=== PATIENT | female | born 1955 | race African-American/Black ===

== ENCOUNTER 2019-01-19 18:58 | Inpatient (IN) | payer MEDICAID ==
[~2019-01-19] VITALS: Ht 180.3 cm; Wt 117.0 kg
[~2019-01-19 18:58] MED LIST: ALBU2.5V8 INH; ALPR1TAB6 PO; AZIT250T6 PO; FLUT1DIS5 INH; FURO20TA3 PO; IPRA4AER INH; LORA10TA3 PO; MONT10TA49 PO; OMEP40CA45 PO; OXYC1TAB7 PO; OXYC80TA16 PO; PANT20TA2 PO; PHEN100C PO
--- NOTE | 2019-01-19 19:21 | PHYS DOC ---
Past Medical History Past Medical History: COPD, Seizure Past Surgical History: No Surgical History Alcohol Use: None Drug Use: None Adult General Chief Complaint Chief Complaint: CHEST PAIN HPI HPI 63 yo female presents to the ER with complaints of SOB. Patient O2 saturations 84% on RA. Patient states she fell last week on the ground with injury to her right shoulder and chest. She states today she woke with SOB, cough, chills. States the SOB was not getting better so she presented to the ER for further evaluation. Patient states movements make her pain/SOB worse. She denies nausea, vomiting, abdominal pain headache or visual changes. Review of Systems Review of Systems Constitutional: + chills Eyes: Denies change in visual acuity, redness, or eye pain [] HENT: Denies nasal congestion or sore throat [] Respiratory: + cough, SOB Cardiovascular: No additional information not addressed in HPI [] GI: Denies abdominal pain, nausea, vomiting, bloody stools or diarrhea [] : Denies dysuria or hematuria [] Musculoskeletal: right side chest pain Integument: Denies rash or skin lesions [] Neurologic: Denies headache, focal weakness or sensory changes [] All other systems were reviewed and found to be within normal limits, except as documented in this note. Current Medications Current Medications Current Medications Medications (Trade) Dose Ordered Sig/Jennie Start Time Stop Time Status Last Admin Dose Admin Albuterol/ Ipratropium (Duoneb) 3 ml 1X ONCE 01/19/19 19:30 01/19/19 19:31 DC 01/19/19 19:30 3 ML Info (CONTRAST GIVEN -- Rx MONITORING) 1 each PRN DAILY PRN 01/19/19 21:00 01/21/19 20:59 DC Iohexol (Omnipaque 350 Mg/ml) 100 ml 1X ONCE 01/19/19 21:30 01/19/19 21:31 DC 01/19/19 21:30 100 ML Allergies Allergies Allergies Coded Allergies Type Severity Reaction Last Updated Verified No Known Drug Allergies 09/27/14 No Physical Exam Physical Exam Constitutional: Well developed, well nourished, mild resp distress, non-toxic appearance. [] HENT: Normocephalic, atraumatic, bilateral external ears normal, oropharynx moist, no oral exudates, nose normal. [] Eyes: PERRLA, EOMI, conjunctiva normal, no discharge. [] Neck: Normal range of motion, no tenderness, supple, no stridor. [] Cardiovascular: tachycardiaa Lungs & Thorax: decreased BS bilaterally Abdomen: Bowel sounds normal, soft, no tenderness, no masses, no pulsatile masses. [] Skin: Warm, dry, no erythema, no rash. [] Back: No tenderness, no CVA tenderness. [] Extremities: No tenderness, no edema. [] Neurologic: Alert and oriented X 3, no focal deficits noted. [] Psychologic: Affect normal, judgement normal, mood normal. [] Current Patient Data Vital Signs Vital Signs Date Time Temp Pulse Resp B/P (MAP) Pulse Ox O2 Delivery O2 Flow Rate FiO2 01/20/19 00:12 84 124/78 (93) 92 01/19/19 19:31 Nasal Cannula 3.0 01/19/19 19:10 98.4 18 98.4 Lab Values Laboratory Tests Test 01/19/19 19:30 01/19/19 21:13 White Blood Count 5.9 x10^3/uL (4.0-11.0) Red Blood Count 4.61 x10^6/uL (3.50-5.40) Hemoglobin 13.8 g/dL (12.0-15.5) Hematocrit 41.6 % (36.0-47.0) Mean Corpuscular Volume 90 fL (79-100) Mean Corpuscular Hemoglobin 30 pg (25-35) Mean Corpuscular Hemoglobin Concent 33 g/dL (31-37) Red Cell Distribution Width 15.1 % (11.5-14.5) H Platelet Count 221 x10^3/uL (140-400) Neutrophils (%) (Auto) 58 % (31-73) Lymphocytes (%) (Auto) 31 % (24-48) Monocytes (%) (Auto) 10 % (0-9) H Eosinophils (%) (Auto) 1 % (0-3) Basophils (%) (Auto) 1 % (0-3) Neutrophils # (Auto) 3.4 x10^3/uL (1.8-7.7) Lymphocytes # (Auto) 1.8 x10^3/uL (1.0-4.8) Monocytes # (Auto) 0.6 x10^3/uL (0.0-1.1) Eosinophils # (Auto) 0.1 x10^3/uL (0.0-0.7) Basophils # (Auto) 0.0 x10^3/uL (0.0-0.2) Sodium Level 140 mmol/L (136-145) Potassium Level 4.2 mmol/L (3.5-5.1) Chloride Level 103 mmol/L (98-107) Carbon Dioxide Level 30 mmol/L (21-32) Anion Gap 7 (6-14) Blood Urea Nitrogen 11 mg/dL (7-20) Creatinine 0.9 mg/dL (0.6-1.0) Estimated GFR (Cockcroft-Gault) 76.5 BUN/Creatinine Ratio 12 (6-20) Glucose Level 94 mg/dL (70-99) Lactic Acid Level 1.2 mmol/L (0.4-2.0) Calcium Level 9.4 mg/dL (8.5-10.1) Total Bilirubin 0.4 mg/dL (0.2-1.0) Aspartate Amino Transferase (AST) 26 U/L (15-37) Alanine Aminotransferase (ALT) 27 U/L (14-59) Alkaline Phosphatase 102 U/L (46-116) Troponin I Quantitative < 0.017 ng/mL (0.000-0.055) HZ-Qmr-Q-Type Natriuretic Peptide 14 pg/mL (0-124) Total Protein 8.3 g/dL (6.4-8.2) H Albumin 3.7 g/dL (3.4-5.0) Albumin/Globulin Ratio 0.8 (1.0-1.7) L D-Dimer (Justina) 2.47 ug/mlFEU (0.00-0.50) H Laboratory Tests 01/19/19 19:30 Laboratory Tests 01/19/19 19:30 Microbiology 01/19/19 Blood Culture - Preliminary, Resulted NO GROWTH AFTER 2 DAYS EKG EKG [] Radiology/Procedures Radiology/Procedures [facility] [address] [place] [address] IMAGING REPORT Signed PATIENT: JEANNIE TAPIA ACCOUNT: [id number] : 1955 LOCATION: ER AGE: 63 SEX: F EXAM STATUS: REG ER ORD. PHYSICIAN: REJI CLAUDIO MD REASON: hypoxia, room air sat 84% PROCEDURE: CT ANGIOGRAPHY CHEST Study: CT CHEST WITH CONTRAST - PULMONARY ANGIOGRAM History: Hypoxia. Comparison: 12/15/2017 Technique: Helical CT of the chest performed after the administration of 100 cc Omnipaque 350 intravenous contrast and timed for angiographic evaluation of the pulmonary arteries per PE protocol. Coronal and sagittal 3D MIP reformations were obtained. One or more of the following individualized dose reduction techniques were utilized for this examination: 1. Automated exposure control 2. Adjustment of the mA and/or kV according to patient size 3. Use of iterative reconstruction technique. Findings: No pulmonary embolism is identified. Unremarkable aorta and visualized great vessels. No pericardial effusion. Scattered mildly prominent mediastinal and hilar lymph nodes. [facility] right hilar lymph node on image 75 series 3 measuring 1.2 cm. Emphysematous changes of the lungs. Flattened opacities at both lung bases extending to the pleura. 3 mm right middle lobe pulmonary nodule on image 85. Millimetric pleural-based nodule in the right lower lobe, image 88. Possible right thyroid lobe nodule on image 5 series 3 measured at 8 mm and not meeting size criteria for dedicated follow-up. Multifocal osseous degenerative changes. No acute abnormality seen at the upper abdomen. IMPRESSION: 1. No acute pulmonary embolism is identified. 2. At the right more so than left lung bases, mostly linear opacities are identified that are suggestive of atelectasis but could potentially represent an infectious process in the appropriate clinic setting. 3. A few millimetric pulmonary nodules are noted. These do not meet size criteria for dedicated follow-up however given the appearance of the lungs and presumed risk factors for lung malignancy, optional CT follow-up in 12 months could be considered. 4. Scattered mildly prominent mediastinal and hilar lymph nodes are indeterminate. Attention on follow-up. Electronically signed by: GRZEGORZ POWELL MD (01/19/2019 11:11 PM) [facility] DICTATED and SIGNED BY: GRZEGORZ POWELL MD DATE: 01/19/19 2311 [] Course & Med Decision Making Course & Med Decision Making Pertinent Labs and Imaging studies reviewed. (See chart for details) []63 yo female presents to the ER with complaints of SOB. Patient O2 saturations 84% on RA. Patient states she fell last week on the ground with injury to her right shoulder and chest. She states today she woke with SOB, cough, chills. States the SOB was not getting better so she presented to the ER for further evaluation. Patient states movements make her pain/SOB worse. She denies nausea, vomiting, abdominal pain headache or visual changes. Labs/Imaging reviewed Patient provided with duoneb, resp treatment, IVF in the ER Trop negative, BNP 14, ddimer 2.47 CTA performed without acute PE Evidence of PNA appreciated, cultures obtained. Recommend admit with further evaluation and observation within the hospital. Dragon Disclaimer Dragon Disclaimer This electronic medical record was generated, in whole or in part, using a voice recognition dictation system. Departure Departure Impression: Primary Impression: PNA (pneumonia) Additional Impressions: Hypoxia Insufficiency, respiratory, acute Disposition: ADMITTED INPATIENT Admitting Physician: EDWINA Condition: IMPROVED Referrals: SALLY MUNOZ MD (PCP) Critical Care Time Critical care time was 35 minutes exclusive of procedures. Problem Qualifiers Primary Impression: PNA (pneumonia) Pneumonia type: due to unspecified organism Laterality: bilateral Lung location: lower lobe of lung Qualified Codes: J18.9 - Pneumonia, unspecified organism REJI CLAUDIO MD Jan 19, 2019 19:21
[2019-01-19] MEDS ORDERED: IPRATRPIUM/ALBUTEROL 0.5/2.5MG 3 ML NEBU. NEB ONE (19:30)
[2019-01-19 19:43] LABS: BASO % 1 % (0-3); EOS # 0.1 x10^3/uL (0.0-0.7); EOS % 1 % (0-3); HEMATOCRIT 41.6 % (36.0-47.0); HEMOGLOBIN 13.8 g/dL (12.0-15.5); LYMPH # 1.8 x10^3/uL (1.0-4.8); LYMPH % 31 % (24-48); MEAN CORPUSCULAR HEMOGLOBIN 30 pg (25-35); MEAN CORPUSCULAR HGB CONC 33 g/dL (31-37); MEAN CORPUSCULAR VOLUME 90 fL (79-100); MONO # 0.6 x10^3/uL (0.0-1.1); MONO % 10 % (0-9); NEUT # 3.4 x10^3/uL (1.8-7.7); NEUT % 58 % (31-73); PLATELET COUNT 221 x10^3/uL (140-400); RED BLOOD COUNT 4.61 x10^6/uL (3.50-5.40); RED CELL DISTRIBUTION WIDTH 15.1 % (11.5-14.5); WHITE BLOOD COUNT 5.9 x10^3/uL (4.0-11.0)
[2019-01-19 20:00] LABS: CALCIUM 9.4 mg/dL (8.5-10.1); CREATININE 0.9 mg/dL (0.6-1.0); GFR 76.5; POTASSIUM 4.2 mmol/L (3.5-5.1)
[2019-01-19 20:05] LABS: ALBUMIN 3.7 g/dL (3.4-5.0); ALBUMIN/GLOBULIN RATIO 0.8 (1.0-1.7); TOTAL BILIRUBIN 0.4 mg/dL (0.2-1.0); TOTAL PROTEIN 8.3 g/dL (6.4-8.2)
[2019-01-19] MEDS ORDERED: CONTRAST GIVEN. MC PRN (21:00)
[2019-01-19] MEDS ORDERED: IOHEXOL 350 MG/ML 100 ML VIAL. IV ONE (21:30)
--- NOTE | 2019-01-19 23:14 | RAD ---
Study: CT CHEST WITH CONTRAST - PULMONARY ANGIOGRAM History: Hypoxia. Comparison: 12/15/2017 Technique: Helical CT of the chest performed after the administration of 100 cc Omnipaque 350 intravenous contrast and timed for angiographic evaluation of the pulmonary arteries per PE protocol. Coronal and sagittal 3D MIP reformations were obtained. One or more of the following individualized dose reduction techniques were utilized for this examination: 1. Automated exposure control 2. Adjustment of the mA and/or kV according to patient size 3. Use of iterative reconstruction technique. Findings: No pulmonary embolism is identified. Unremarkable aorta and visualized great vessels. No pericardial effusion. Scattered mildly prominent mediastinal and hilar lymph nodes. Jewel Gauger right hilar lymph node on image 75 series 3 measuring 1.2 cm. Emphysematous changes of the lungs. Flattened opacities at both lung bases extending to the pleura. 3 mm right middle lobe pulmonary nodule on image 85. Millimetric pleural-based nodule in the right lower lobe, image 88. Possible right thyroid lobe nodule on image 5 series 3 measured at 8 mm and not meeting size criteria for dedicated follow-up. Multifocal osseous degenerative changes. No acute abnormality seen at the upper abdomen. IMPRESSION: 1. No acute pulmonary embolism is identified. 2. At the right more so than left lung bases, mostly linear opacities are identified that are suggestive of atelectasis but could potentially represent an infectious process in the appropriate clinic setting. 3. A few millimetric pulmonary nodules are noted. These do not meet size criteria for dedicated follow-up however given the appearance of the lungs and presumed risk factors for lung malignancy, optional CT follow-up in 12 months could be considered. 4. Scattered mildly prominent mediastinal and hilar lymph nodes are indeterminate. Attention on follow-up. Electronically signed by: GRZEGORZ POWELL MD (01/19/2019 11:11 PM) [facility] [place]
--- NOTE | 2019-01-20 00:26 | RAD ---
PORTABLE CHEST 1V History: Shortness of breath Comparison: June 13, 2017 Findings: Single view of the chest is submitted. There is no pneumothorax. Cardiac silhouette is similar. There is again more linear-appearing bibasilar airspace opacity greater on the left. No new significant dependent pleural fluid is identified. Impression: 1. There is again degree of bibasilar linear opacity which may be atelectasis greater on the left, infiltrate not excluded. Electronically signed by: Lukas Martin MD (01/20/2019 12:23 AM) [facility]
[2019-01-20] MEDS ORDERED: ONDANSETRON PF 4 MG/2 ML VIAL. IV PRN ×2 (00:45→16:45)
[2019-01-20 02:00] VITALS: BP 133/88
--- NOTE | 2019-01-20 02:00 | NUR ---
The patient, JEANNIE TAPIA, 63 y/o, F admitted by KRISHNA BURTON MD, was given written information regarding hospital policies, unit procedures and contact persons. Valuables were checked and left in the room.
[2019-01-20] MEDS ORDERED: METF500T16 PO (02:21)
[2019-01-20 07:56] VITALS: BP 110/64
[2019-01-20] MEDS: IPRATRPIUM/ALBUTEROL 0.5/2.5MG 3 ML NEBU. NEB SCH ×4 (08:23→20:23)
--- NOTE | 2019-01-20 10:14 | PDOC1 ---
History and Physical Date of Admission Date of Admission DATE: 01/20/19 TIME: 10:13 Identification/Chief Complaint Chief Complaint SEEN IN ER , 63 yo female presented to the ER with complaints of SOB. Patient O2 saturations 84% on RA. Patient states she fell last week on the ground with injury to her right shoulder and chest. She states today she woke with SOB, cough, chills. Past Medical History Past Medical History Past Medical History Past Medical History Past Medical History: COPD, Seizure Past Surgical History: No Surgical History Alcohol Use: None Drug Use: None Pulmonary: COPD CENTRAL NERVOUS SYSTEM: Seizure GI: GERD Hepatobiliary: No pertinent hx Psych: Anxiety, Depression Rheumatologic: Other Infectious disease: No pertinent hx Renal/: No pertinent hx Endocrine: No pertinent hx Past Surgical History Past Surgical History: No pertinent history Family History Family History: Hypertension Social History Smoke: Quit ALCOHOL: none Drugs: None Current Problem List Problem List Problems Medical Problems: (1) Hypoxia Status: Acute (2) Insufficiency, respiratory, acute Status: Acute (3) PNA (pneumonia) Status: Acute Current Medications Current Medications Current Medications Albuterol/ Ipratropium (Duoneb) 3 ml 1X ONCE NEB Last administered on 01/19/19at 19:30; Start 01/19/19 at 19:30; Stop 01/19/19 at 19:31; Status DC Iohexol (Omnipaque 350 Mg/ml) 100 ml 1X ONCE IV Last administered on 01/19/19at 21:30; Start 01/19/19 at 21:30; Stop 01/19/19 at 21:31; Status DC Info (CONTRAST GIVEN -- Rx MONITORING) 1 each PRN DAILY PRN MC SEE COMMENTS; Start 01/19/19 at 21:00; Stop 01/21/19 at 20:59 Ondansetron HCl (Zofran) 4 mg PRN Q8HRS PRN IV NAUSEA/VOMITING 1ST CHOICE; Start 01/20/19 at 00:45; Stop 01/21/19 at 00:44 Albuterol/ Ipratropium (Duoneb) 3 ml RTQID NEB Last administered on 01/20/19at 08:23; Start 01/20/19 at 08:00; Stop 01/21/19 at 07:59 Levofloxacin/ Dextrose 150 ml @ 100 mls/hr 1X ONCE IV Last administered on 01/20/19at 01:05; Start 01/20/19 at 01:00; Stop 01/20/19 at 02:29; Status DC Active Scripts Active Reported Metformin Hcl 500 Mg Tablet 500 Mg PO BIDWMEALS Azithromycin Tablet (Azithromycin) 250 Mg Tablet 250 Mg PO PT STATED THAT SHE HAS BEEN TAKING ABX FOR THREE DAYS, UNABLE TO STATE HOW MANY TIME PER DAY OR WHY SHE IS TAKING IT Dilantin (Phenytoin Sodium Extended) 100 Mg Capsule 1 Cap PO DAILY Combivent Respimat Inhal (Ipratropium/Albuterol Sulfate) 4 Gm Aer.w.adap 4 Gm INH Advair 500-50 Diskus (Fluticasone/Salmeterol) 1 Each Disk.w.dev 1 Each INH BID Proair Hfa (Albuterol Sulfate) 8.5 Gm Hfa.aer.ad 8.5 Gm INH PRN Protonix (Pantoprazole Sodium) 20 Mg Tablet.dr 40 Mg PO DAILY Oxycontin (Oxycodone HCl) 80 Mg Tab.er.12h 80 Mg PO BID Loratadine 10 Mg Tablet 10 Mg PO DAILY Oxycodone-Acetaminophen 5-325 (Oxycodone Hcl/Acetaminophen) 1 Each Tablet 1 Tab PO Q4HRS PRN Alprazolam 1 Mg Tablet 1 Mg PO BID Furosemide 20 Mg Tablet 20 Mg PO DAILY Montelukast Sodium Tablet (Montelukast Sodium) 10 Mg Tablet 10 Mg PO DAILY Omeprazole 40 Mg Capsule.dr 40 Mg PO DAILY Allergies Allergies: Coded Allergies: No Known Drug Allergies (Unverified , 09/27/14) ROS Review of System Review of Systems Review of Systems Constitutional: pos chills [] Eyes: Denies change in visual acuity, redness, or eye pain [] HENT: Denies nasal congestion or sore throat [] Respiratory: shortness of breath [] Cardiovascular: No additional information not addressed in HPI [] GI: Denies abdominal pain, nausea, vomiting, bloody stools or diarrhea [] : Denies dysuria or hematuria [] Musculoskeletal: Denies back pain or joint pain [] Integument: Denies rash or skin lesions [] Neurologic: Denies headache, focal weakness or sensory changes [] Endocrine: Denies polyuria or polydipsia [] 14 pt systems were reviewed and found to be within normal limits, except as documented Musculoskeletal: Yes Joint Pain, Yes Joint Stiffness Physical Exam Physical Exam Physical Exam Physical Exam Constitutional: Well developed, well nourished, no acute distress, non-toxic appearance. [] HENT: Normocephalic, atraumatic, bilateral external ears normal, oropharynx moist, no oral exudates, nose normal. [] Eyes: PERRLA, EOMI, conjunctiva normal, no discharge. [] Neck: Normal range of motion, no tenderness, supple, no stridor. [] Cardiovascular:Heart rate regular rhythm, no murmur [] Lungs & Thorax: Bilateral breath crackles [] Abdomen: Bowel sounds normal, soft, no tenderness, no masses, no pulsatile masses. [] Skin: Warm, dry, no erythema, no rash. [] Back: No tenderness, no CVA tenderness. [] Extremities: No tenderness, no cyanosis, no clubbing, ROM intact, no edema. [] Neurologic: Alert and oriented X 3, normal motor function, normal sensory function, no focal deficits noted. [] Psychologic: Affect normal, judgment normal, mood normal. [] General: Alert, Oriented X3, Cooperative HEENT: Atraumatic Breasts: Not examined Abdomen: Soft Rectal Exam: not examined Extremities: No cyanosis Neuro: Normal speech, Strength at 5/5 X4 ext, Cranial nerves 3-12 NL Psych/Mental Status: Mental status NL, Mood NL Vitals Vitals Vital Signs Date Time Temp Pulse Resp B/P (MAP) Pulse Ox O2 Delivery O2 Flow Rate FiO2 01/20/19 08:37 4.0 01/20/19 08:31 94 Nasal Cannula 01/20/19 07:56 97.6 75 20 110/64 (79) 97.6 Labs Labs Laboratory Tests Test 01/19/19 19:30 01/19/19 21:13 White Blood Count 5.9 x10^3/uL (4.0-11.0) Red Blood Count 4.61 x10^6/uL (3.50-5.40) Hemoglobin 13.8 g/dL (12.0-15.5) Hematocrit 41.6 % (36.0-47.0) Mean Corpuscular Volume 90 fL (79-100) Mean Corpuscular Hemoglobin 30 pg (25-35) Mean Corpuscular Hemoglobin Concent 33 g/dL (31-37) Red Cell Distribution Width 15.1 % (11.5-14.5) Platelet Count 221 x10^3/uL (140-400) Neutrophils (%) (Auto) 58 % (31-73) Lymphocytes (%) (Auto) 31 % (24-48) Monocytes (%) (Auto) 10 % (0-9) Eosinophils (%) (Auto) 1 % (0-3) Basophils (%) (Auto) 1 % (0-3) Neutrophils # (Auto) 3.4 x10^3/uL (1.8-7.7) Lymphocytes # (Auto) 1.8 x10^3/uL (1.0-4.8) Monocytes # (Auto) 0.6 x10^3/uL (0.0-1.1) Eosinophils # (Auto) 0.1 x10^3/uL (0.0-0.7) Basophils # (Auto) 0.0 x10^3/uL (0.0-0.2) Sodium Level 140 mmol/L (136-145) Potassium Level 4.2 mmol/L (3.5-5.1) Chloride Level 103 mmol/L (98-107) Carbon Dioxide Level 30 mmol/L (21-32) Anion Gap 7 (6-14) Blood Urea Nitrogen 11 mg/dL (7-20) Creatinine 0.9 mg/dL (0.6-1.0) Estimated GFR (Cockcroft-Gault) 76.5 BUN/Creatinine Ratio 12 (6-20) Glucose Level 94 mg/dL (70-99) Lactic Acid Level 1.2 mmol/L (0.4-2.0) Calcium Level 9.4 mg/dL (8.5-10.1) Total Bilirubin 0.4 mg/dL (0.2-1.0) Aspartate Amino Transf (AST/SGOT) 26 U/L (15-37) Alanine Aminotransferase (ALT/SGPT) 27 U/L (14-59) Alkaline Phosphatase 102 U/L (46-116) Troponin I Quantitative < 0.017 ng/mL (0.000-0.055) KZ-Rno-U-Type Natriuretic Peptide 14 pg/mL (0-124) Total Protein 8.3 g/dL (6.4-8.2) Albumin 3.7 g/dL (3.4-5.0) Albumin/Globulin Ratio 0.8 (1.0-1.7) D-Dimer (Justina) 2.47 ug/mlFEU (0.00-0.50) Laboratory Tests Test 01/19/19 19:30 01/19/19 21:13 White Blood Count 5.9 x10^3/uL (4.0-11.0) Red Blood Count 4.61 x10^6/uL (3.50-5.40) Hemoglobin 13.8 g/dL (12.0-15.5) Hematocrit 41.6 % (36.0-47.0) Mean Corpuscular Volume 90 fL (79-100) Mean Corpuscular Hemoglobin 30 pg (25-35) Mean Corpuscular Hemoglobin Concent 33 g/dL (31-37) Red Cell Distribution Width 15.1 % (11.5-14.5) Platelet Count 221 x10^3/uL (140-400) Neutrophils (%) (Auto) 58 % (31-73) Lymphocytes (%) (Auto) 31 % (24-48) Monocytes (%) (Auto) 10 % (0-9) Eosinophils (%) (Auto) 1 % (0-3) Basophils (%) (Auto) 1 % (0-3) Neutrophils # (Auto) 3.4 x10^3/uL (1.8-7.7) Lymphocytes # (Auto) 1.8 x10^3/uL (1.0-4.8) Monocytes # (Auto) 0.6 x10^3/uL (0.0-1.1) Eosinophils # (Auto) 0.1 x10^3/uL (0.0-0.7) Basophils # (Auto) 0.0 x10^3/uL (0.0-0.2) Sodium Level 140 mmol/L (136-145) Potassium Level 4.2 mmol/L (3.5-5.1) Chloride Level 103 mmol/L (98-107) Carbon Dioxide Level 30 mmol/L (21-32) Anion Gap 7 (6-14) Blood Urea Nitrogen 11 mg/dL (7-20) Creatinine 0.9 mg/dL (0.6-1.0) Estimated GFR (Cockcroft-Gault) 76.5 BUN/Creatinine Ratio 12 (6-20) Glucose Level 94 mg/dL (70-99) Lactic Acid Level 1.2 mmol/L (0.4-2.0) Calcium Level 9.4 mg/dL (8.5-10.1) Total Bilirubin 0.4 mg/dL (0.2-1.0) Aspartate Amino Transf (AST/SGOT) 26 U/L (15-37) Alanine Aminotransferase (ALT/SGPT) 27 U/L (14-59) Alkaline Phosphatase 102 U/L (46-116) Troponin I Quantitative < 0.017 ng/mL (0.000-0.055) QU-Ozk-T-Type Natriuretic Peptide 14 pg/mL (0-124) Total Protein 8.3 g/dL (6.4-8.2) Albumin 3.7 g/dL (3.4-5.0) Albumin/Globulin Ratio 0.8 (1.0-1.7) D-Dimer (Justina) 2.47 ug/mlFEU (0.00-0.50) Images Images EXAM: 3 Views Right Shoulder DATE: 01/20/2019 2:47 PM INDICATION: Right shoulder pain, progressing since fall COMPARISON: No Prior FINDINGS: There is no evidence for acute fracture or dislocation. AC joint is congruent. Humeral head is not high riding. IMPRESSION: 1. No acute fracture or dislocation. Electronically signed by: Kale Vega MD (01/20/2019 3:59 PM) [id number] DICTATED and SIGNED BY: KALE VEGA MD DATE: 01/20/19 1556 EXAM: AP and lateral views right knee DATE: 01/20/2019 2:47 PM INDICATION: Pain, swelling, right knee pain COMPARISON: No Prior FINDINGS/ IMPRESSION: 1. No evidence of acute fracture or dislocation. 2. No joint effusion. 3. Joint space preserved although small medial and lateral tibial plateau osteophytes are seen. Electronically signed by: Kale Vega MD (01/20/2019 4:08 PM) [id number] DICTATED and SIGNED BY: KALE VEGA MD DATE: 01/20/19 1601 Study: CT CHEST WITH CONTRAST - PULMONARY ANGIOGRAM History: Hypoxia. Comparison: 12/15/2017 Technique: Helical CT of the chest performed after the administration of 100 cc Omnipaque 350 intravenous contrast and timed for angiographic evaluation of the pulmonary arteries per PE protocol. Coronal and sagittal 3D MIP reformations were obtained. One or more of the following individualized dose reduction techniques were utilized for this examination: 1. Automated exposure control 2. Adjustment of the mA and/or kV according to patient size 3. Use of iterative reconstruction technique. Findings: No pulmonary embolism is identified. Unremarkable aorta and visualized great vessels. No pericardial effusion. Scattered mildly prominent mediastinal and hilar lymph nodes. Obstetrician And Gynaecologist right hilar lymph node on image 75 series 3 measuring 1.2 cm. Emphysematous changes of the lungs. Flattened opacities at both lung bases extending to the pleura. 3 mm right middle lobe pulmonary nodule on image 85. Millimetric pleural-based nodule in the right lower lobe, image 88. Possible right thyroid lobe nodule on image 5 series 3 measured at 8 mm and not meeting size criteria for dedicated follow-up. Multifocal osseous degenerative changes. No acute abnormality seen at the upper abdomen. IMPRESSION: 1. No acute pulmonary embolism is identified. 2. At the right more so than left lung bases, mostly linear opacities are identified that are suggestive of atelectasis but could potentially represent an infectious process in the appropriate clinic setting. 3. A few millimetric pulmonary nodules are noted. These do not meet size criteria for dedicated follow-up however given the appearance of the lungs and presumed risk factors for lung malignancy, optional CT follow-up in 12 months could be considered. 4. Scattered mildly prominent mediastinal and hilar lymph nodes are indeterminate. Attention on follow-up. Electronically signed by: GRZEGORZ POWELL MD (01/19/2019 11:11 PM) [facility] [place] DICTATED and SIGNED BY: GRZEGORZ POWELL MD DATE: 01/19/19 2311 VTE Prophylaxis Ordered VTE Prophylaxis Devices: No VTE Pharmacological Prophylaxi: Yes Assessment/Plan Assessment/Plan IMPRESSION: 1. Acute on chronic hypoxic respiratory failure secondary to acute exacerbation WITH RESP FAILURE, EXAC of chronic obstructive pulmonary disease and likely viral basal pneumonia. 2. No acute pulmonary embolism is identified.ON CTA 3. At the right more so than left lung bases, mostly linear opacities are identified that are suggestive of atelectasis but could potentially represent an infectious process in the appropriate clinic setting. 4. few millimetric pulmonary nodules are noted. These do not meet size criteria for dedicated follow-up however given the appearance of the lungs and presumed risk factors for lung malignancy, optional CT follow-up in 12 months could be considered. 5. MORBID OBESITY 6. Moderate pulmonary HTN 7. RIGHT SHOULDER PAIN ON X-RAY There is no evidence for acute fracture or dislocation. AC joint is congruent. Humeral head is not high riding. 8. ATYPICAL CHEST PAIN PLAN ADMIT EMPERIC IV ANTIBIOTICS PULM CONSULT IV STEROID TAPER DVT PROPHYLAXIS PAIN CONTROL 77 MIN PT EXAM, CHART REVIEW, > 50% OF TIME SPENT WITH EXAM, CHART REVIEW, PT CARE COORDINATION BERRY JOSE MD Jan 20, 2019 10:14
[2019-01-20 11:57] VITALS: BP 128/74
--- NOTE | 2019-01-20 12:58 | PDOC2 ---
CARDIAC CONSULT DATE OF CONSULT Date of Consult DATE: 01/20/19 TIME: 12:23 REASON FOR CONSULT Reason for Consult: Chest pain REFERRING PHYSICIAN Referring Physician: Fullbright SOURCE Source: Chart review, Patient HISTORY OF PRESENT ILLNESS HISTORY OF PRESENT ILLNESS This is a pleasant 63 yo female admitted for complains of SOA, chest pain and recent fall. Reports that last week she slipped and fell back and brace her self with her left arm. Since then she started having some discomfort to her shoulder and right knee. Her LLE seems to be shorter than her RLE and uses a cane but no obvious effusion and able to do ROM. Since then she started having sharp right chest pain which is worse with coughing and radiates to her right back and reproducible with palpation and also has pain to her right shoulder with ROM. She has been coughing more with productive yellow sputum. Also has chills but no recorded fever. She has possible exposure to RSV from her grandchildren. Also with her cough she has been nauseated with occasional palpitations. More SOA in the last few days more with exertion. NO frequent diz ziness and no previous passing out. She uses oxygen at home continuous at 2LPM and compliant with her nebulizers but still remains with SOA. Denies any past MARCUS workup. PAST MEDICAL HISTORY Past Medical History CV: valvular insufficiency (mild to mod TR) Pulmonary: COPD, pneumonia CENTRAL NERVOUS SYSTEM: Seizure GI: GERD Hepatobiliary: No pertinent hx Psych: Anxiety, Depression Rheumatologic: Other (DJD, chronic back and neck pain) Infectious disease: No pertinent hx ENT: No pertinent hx Renal/: No pertinent hx Endocrine: preDM PAST SURGICAL HISTORY Past Surgical History: No pertinent history FAMILY HISTORY Family History: Hypertension SOCIAL HISTORY Smoke: Quit ALCOHOL: occassional Drugs: None Lives: with Family CURRENT MEDICATIONS CURRENT MEDICATIONS Current Medications Medications (Trade) Dose Ordered Sig/Jennie Route PRN Reason Start Time Stop Time Status Last Admin Dose Admin Albuterol/ Ipratropium (Duoneb) 3 ml 1X ONCE NEB 01/19/19 19:30 01/19/19 19:31 DC 01/19/19 19:30 Iohexol (Omnipaque 350 Mg/ml) 100 ml 1X ONCE IV 01/19/19 21:30 01/19/19 21:31 DC 01/19/19 21:30 Albuterol/ Ipratropium (Duoneb) 3 ml RTQID NEB 01/20/19 08:00 01/21/19 07:59 01/20/19 11:56 Levofloxacin/ Dextrose 150 ml @ 100 mls/hr 1X ONCE IV 01/20/19 01:00 01/20/19 02:29 DC 01/20/19 01:05 ALLERGIES ALLERGIES: Coded Allergies: No Known Drug Allergies (Unverified , 09/27/14) ROS Review of System 14 point ROS evaluated with pertinent positives noted per HPI PHYSICAL EXAM General: Alert, Oriented X3, Cooperative, mild distress HEENT: Atraumatic, Mucous membr. moist/pink Lungs: Other (Basilar crackles) Heart: Regular rate (SR no ectopies), Normal S1, Normal S2, Other (3/6 systolic murmur to LLS border) Abdomen: Soft, No tenderness Extremities: No cyanosis, No edema Skin: No breakdown Neuro: Normal speech, Sensation intact Psych/Mental Status: Mental status NL, Mood NL MUSCULOSKELETAL: Osteoarthritic changes both hands, Other (LLE shorter than RLE) VITALS/I&O VITALS/I&O: Vital Signs Date Time Temp Pulse Resp B/P (MAP) Pulse Ox O2 Delivery O2 Flow Rate FiO2 01/20/19 11:58 87 4.0 01/20/19 11:57 97.6 85 20 128/74 (92) Nasal Cannula 97.6 I & O 01/19/19 01/19/19 01/20/19 15:00 23:00 07:00 Intake Total 300 ml Balance 300 ml LABS Lab: Laboratory Tests Test 01/19/19 19:30 01/19/19 21:13 01/20/19 11:10 White Blood Count 5.9 x10^3/uL (4.0-11.0) Red Blood Count 4.61 x10^6/uL (3.50-5.40) Hemoglobin 13.8 g/dL (12.0-15.5) Hematocrit 41.6 % (36.0-47.0) Mean Corpuscular Volume 90 fL (79-100) Mean Corpuscular Hemoglobin 30 pg (25-35) Mean Corpuscular Hemoglobin Concent 33 g/dL (31-37) Red Cell Distribution Width 15.1 % (11.5-14.5) H Platelet Count 221 x10^3/uL (140-400) Neutrophils (%) (Auto) 58 % (31-73) Lymphocytes (%) (Auto) 31 % (24-48) Monocytes (%) (Auto) 10 % (0-9) H Eosinophils (%) (Auto) 1 % (0-3) Basophils (%) (Auto) 1 % (0-3) Neutrophils # (Auto) 3.4 x10^3/uL (1.8-7.7) Lymphocytes # (Auto) 1.8 x10^3/uL (1.0-4.8) Monocytes # (Auto) 0.6 x10^3/uL (0.0-1.1) Eosinophils # (Auto) 0.1 x10^3/uL (0.0-0.7) Basophils # (Auto) 0.0 x10^3/uL (0.0-0.2) Sodium Level 140 mmol/L (136-145) Potassium Level 4.2 mmol/L (3.5-5.1) Chloride Level 103 mmol/L (98-107) Carbon Dioxide Level 30 mmol/L (21-32) Anion Gap 7 (6-14) Blood Urea Nitrogen 11 mg/dL (7-20) Creatinine 0.9 mg/dL (0.6-1.0) Estimated GFR (Cockcroft-Gault) 76.5 BUN/Creatinine Ratio 12 (6-20) Glucose Level 94 mg/dL (70-99) Lactic Acid Level 1.2 mmol/L (0.4-2.0) Calcium Level 9.4 mg/dL (8.5-10.1) Total Bilirubin 0.4 mg/dL (0.2-1.0) Aspartate Amino Transferase (AST) 26 U/L (15-37) Alanine Aminotransferase (ALT) 27 U/L (14-59) Alkaline Phosphatase 102 U/L (46-116) Troponin I Quantitative < 0.017 ng/mL (0.000-0.055) < 0.017 ng/mL (0.000-0.055) LL-Bwj-E-Type Natriuretic Peptide 14 pg/mL (0-124) Total Protein 8.3 g/dL (6.4-8.2) H Albumin 3.7 g/dL (3.4-5.0) Albumin/Globulin Ratio 0.8 (1.0-1.7) L D-Dimer (Justina) 2.47 ug/mlFEU (0.00-0.50) H Laboratory Tests 01/19/19 19:30 Laboratory Tests 01/19/19 19:30 ECHOCARDIOGRAM ECHOCARDIOGRAM <Conclusion> The left ventricle is normal size. The left ventricular systolic function is normal. The ejection fraction is 55-60%. There is no significant aortic valvular stenosis. Doppler and Color Flow revealed no significant aortic regurgitation. Doppler and Color-flow revealed trace mitral regurgitation. Doppler and Color Flow revealed mild to moderate tricuspid regurgitation. Doppler and Color Flow revealed moderate pulmonary hypertension. DATE: 06/15/17 1432 ASSESSMENT/PLAN ASSESSMENT/PLAN 1. Atypical CP: noncardiac. suspect MSK 2. AECOPD with possible viral pneumonia: O2 dependent possible recent exposure to RSV 3. GERD 4. Obesity 5. PreDM 6. Right knee/shoulder pain with recent mechanical fall: possible strain. Defer to PCP. 7. Chronic back pain: takes oxycodone 8. Moderate pulmonary HTN Recommendations 1. Flu test 2. Analgesic and imaging per PCP in regards to right shoulder and knee. 3. Consider for outpt TTE 4. Consider for MARCUS workup 5. Consult pulmonary HIRA BRIDGES APRN Jan 20, 2019 12:57
--- NOTE | 2019-01-20 13:17 | CONS ---
DATE OF CONSULTATION: PULMONARY CONSULTATION ATTENDING PHYSICIAN: Dr. De Leon. REASON FOR CONSULTATION: Dyspnea, wheezing. HISTORY OF PRESENT ILLNESS: The patient is a 63-year-old obese patient with a BMI of 37. She has history of tobacco use for 37 years before quitting. She came into the hospital complaining of shortness of breath, cough and wheezing. She also had right-sided chest pain. She had a grandson with RSV infection. No headache, no nausea or vomiting, no diarrhea. No dysuria. No increased leg edema. The patient underwent CT angiogram, which was reviewed by me. There was no evidence of pulmonary embolism. The patient has some basal infiltrates versus atelectasis. There were few tiny nodules, one of them 3 mm in the right middle lobe and another one also tiny in the right lower lobe, nonspecific. I have been asked to see her for further evaluation. PAST MEDICAL HISTORY: COPD, history of unaf-ic-dgeeqndq TR, history of pneumonia, seizure disorder, depression, DJD. PAST SURGICAL HISTORY: No recent surgeries. FAMILY HISTORY: Hypertension. SOCIAL HISTORY: Quit tobacco, but smoked for about 37 years before quitting. ALLERGIES: None. REVIEW OF SYSTEMS: Twelve-point system obtained. Pertinent positives discussed in my history of present illness, otherwise noncontributory. All systems that were negative were reviewed as well. PHYSICAL EXAMINATION: VITAL SIGNS: Reviewed. Pulse ox 92% on 4 liters. Normally, she is at home at 2 liters. Afebrile. HEENT: Sclerae nonicteric. NECK: Supple. LUNGS: With bilateral expiratory wheezes. CARDIOVASCULAR: Regular rate. ABDOMEN: Soft, obese. EXTREMITIES: With trace pitting edema. LABORATORY DATA: Reviewed. White cell count 5.9, hemoglobin 13.8 and platelets are 221. BUN and creatinine normal. IMPRESSION: 1. Acute on chronic hypoxic respiratory failure secondary to acute exacerbation of chronic obstructive pulmonary disease and likely viral basal pneumonia. The patient was [facility] 2. Abnormal CT chest with some basal atelectasis versus infiltrate. Likely infectious etiology. 3. Underlying morbid obesity. 4. Underlying chronic obstructive pulmonary disease, unknown FEV1. RECOMMENDATIONS: 1. Continue with present oxygen to keep saturations 92% and above and gradual wean. 2. Continue DuoNebs. 3. Add steroid inhaler. 4. Add oral prednisone. 5. Continue Levaquin. 6. Weight loss is advised. 7. We will follow along with you. We will also do influenza screen. FRANCE CHRISTINA MD DR: KRISH/birdie JOB#: [id number] / [id number]
--- NOTE | 2019-01-20 13:22 | NUR ---
SS following for discharge planning. SS reviewed pt chart. Pt is from home and is currently requiring oxygen. SS will continue to follow for discharge planning.
[2019-01-20] MEDS: methylPREDNISolone SOD SUCC PF 40 MG/ML VIAL. IV SCH ×2 (14:42→20:50)
[2019-01-20 15:04] VITALS: BP 129/83
--- NOTE | 2019-01-20 16:02 | RAD ---
EXAM: 3 Views Right Shoulder DATE: 01/20/2019 2:47 PM INDICATION: Right shoulder pain, progressing since fall COMPARISON: No Prior FINDINGS: There is no evidence for acute fracture or dislocation. AC joint is congruent. Humeral head is not high riding. IMPRESSION: 1. No acute fracture or dislocation. Electronically signed by: Kale Vega MD (01/20/2019 3:59 PM) [id number]
--- NOTE | 2019-01-20 16:12 | RAD ---
EXAM: AP and lateral views right knee DATE: 01/20/2019 2:47 PM INDICATION: Pain, swelling, right knee pain COMPARISON: No Prior FINDINGS/ IMPRESSION: 1. No evidence of acute fracture or dislocation. 2. No joint effusion. 3. Joint space preserved although small medial and lateral tibial plateau osteophytes are seen. Electronically signed by: Kale Vega MD (01/20/2019 4:08 PM) [id number]
[2019-01-20] MEDS ORDERED: oxyCODONE/APAP 5/325 1 TAB TABLET PO PRN (16:30)
[2019-01-20 16:33] LABS: INFLUENZA A PATIENT NEGATIVE (NEGATIVE); INFLUENZA B PATIENT NEGATIVE (NEGATIVE)
[2019-01-20] MEDS ORDERED: MAG HYDROX/ALUMINUM HYD/SIMETH 30 ML ORAL.SUSP PO PRN (16:45)
[2019-01-20] MEDS ORDERED: cloNIDine HCL 0.1 MG TABLET PO PRN (16:45)
[2019-01-20] MEDS ORDERED: DOCUSATE SODIUM 100 MG CAPSULE. PO PRN (16:45)
[2019-01-20] MEDS ORDERED: 0.9 % SODIUM CHLORIDE 10 ML DISP.SYRIN. IV PRN (16:45)
[2019-01-20] MEDS ORDERED: ACETAMINOPHEN 325 MG TABLET. PO PRN (16:45)
[2019-01-20] MEDS ORDERED: LORazepam 0.5 MG TABLET PO PRN (16:45)
[2019-01-20 19:00] VITALS: BP 135/74
[2019-01-20] MEDS: BUDESONIDE 0.5 MG/2 ML NEBU. NEB SCH (20:23)
[2019-01-20] MEDS: ALPRAZolam 1 MG TABLET PO SCH (20:48)
[2019-01-20] MEDS: guaiFENesin ORAL 200 MG/10 ML LIQUID. PO PRN (20:48)
[2019-01-20] MEDS: oxyCODONE ER 40 MG TAB.ER.12H PO SCH (20:49)
[2019-01-20] MEDS ORDERED: NON FORMULARY ITEM (Fluticasone/Salmeterol (Advair 500-50 Diskus) 1 EACH) INH SCH (21:00)
[2019-01-20 23:30] VITALS: BP 133/77
[2019-01-21 03:26] VITALS: BP 127/76
[2019-01-21 05:25] LABS: BASO % 0 % (0-3); EOS % 0 % (0-3); HEMATOCRIT 40.4 % (36.0-47.0); HEMOGLOBIN 13.2 g/dL (12.0-15.5); LYMPH # 0.8 x10^3/uL (1.0-4.8); LYMPH % 15 % (24-48); MEAN CORPUSCULAR HEMOGLOBIN 29 pg (25-35); MEAN CORPUSCULAR HGB CONC 33 g/dL (31-37); MEAN CORPUSCULAR VOLUME 90 fL (79-100); MONO # 0.1 x10^3/uL (0.0-1.1); MONO % 2 % (0-9); NEUT # 4.4 x10^3/uL (1.8-7.7); NEUT % 82 % (31-73); PLATELET COUNT 232 x10^3/uL (140-400); RED BLOOD COUNT 4.49 x10^6/uL (3.50-5.40); RED CELL DISTRIBUTION WIDTH 15.3 % (11.5-14.5); WHITE BLOOD COUNT 5.4 x10^3/uL (4.0-11.0)
[2019-01-21 06:02] LABS: ALBUMIN 3.4 g/dL (3.4-5.0); ALBUMIN/GLOBULIN RATIO 0.7 (1.0-1.7); CALCIUM 9.5 mg/dL (8.5-10.1); CREATININE 0.8 mg/dL (0.6-1.0); GFR 87.7; POTASSIUM 4.3 mmol/L (3.5-5.1); TOTAL BILIRUBIN 0.3 mg/dL (0.2-1.0); TOTAL PROTEIN 8.2 g/dL (6.4-8.2)
[2019-01-21] MEDS: methylPREDNISolone SOD SUCC PF 40 MG/ML VIAL. IV SCH ×3 (06:15→21:08)
[2019-01-21 07:55] VITALS: BP 128/83
[2019-01-21] MEDS: BUDESONIDE 0.5 MG/2 ML NEBU. NEB SCH ×2 (08:00→20:47)
--- NOTE | 2019-01-21 08:19 | PDOC ---
PROGRESS NOTES History of Present Illness History of Present Illness VTE Prophylaxis Ordered VTE Prophylaxis Devices: No VTE Pharmacological Prophylaxi: Yes Assessment/Plan Assessment/Plan IMPRESSION: 1. Acute on chronic hypoxic respiratory failure secondary to acute exacerbation WITH RESP FAILURE, EXAC of chronic obstructive pulmonary disease and likely viral basal pneumonia. 2. No acute pulmonary embolism is identified.ON CTA 3. At the right more so than left lung bases, mostly linear opacities are identified that are suggestive of atelectasis but could potentially represent an infectious process in the appropriate clinic setting. 4. few millimetric pulmonary nodules are noted. These do not meet size criteria for dedicated follow-up however given the appearance of the lungs and presumed risk factors for lung malignancy, optional CT follow-up in 12 months could be considered. 5. MORBID OBESITY 6. Moderate pulmonary HTN 7. RIGHT SHOULDER PAIN ON X-RAY There is no evidence for acute fracture or dislocation. AC joint is congruent. Humeral head is not high riding. 8. ATYPICAL CHEST PAIN PLAN ADMIT EMPERIC IV ANTIBIOTICS PULM CONSULT IV STEROID TAPER DVT PROPHYLAXIS PAIN CONTROL 27 MIN PT EXAM, CHART REVIEW, > 50% OF TIME SPENT WITH EXAM, CHART REVIEW, PT CARE COORDINATION Vitals Vitals Vital Signs Date Time Temp Pulse Resp B/P (MAP) Pulse Ox O2 Delivery O2 Flow Rate FiO2 01/21/19 03:26 97.5 91 18 127/76 (93) 97 Nasal Cannula 4.0 97.5 Physical Exam Physical Exam Neck: Normal range of motion, no tenderness, supple, no stridor. [] Cardiovascular:Heart rate regular rhythm, no murmur [] Lungs & Thorax: Bilateral crackles [] Abdomen: Bowel sounds normal, soft, no tenderness, no masses, no pulsatile masses. [] Skin: Warm, dry, no erythema, no rash. [] Back: No tenderness, no CVA tenderness. [] Extremities: No tenderness, no cyanosis, no clubbing, ROM intact, no edema. [] Neurologic: Alert and oriented X 3, normal motor function, normal sensory function, no focal deficits noted. [] Psychologic: Affect normal, judgment normal, mood normal. [] General: Alert, Oriented X3, Cooperative HEENT: Atraumatic Breasts: Not examined Abdomen: Soft Rectal Exam: not examined Extremities: No cyanosis Neuro: Normal speech, Strength at 5/5 X4 ext, Cranial nerves 3-12 NL Psych/Mental Status: Mental status NL, Mood NL General: Alert, Oriented X3, Cooperative, mild distress Heart: Regular rate (SR no ectopies), Normal S1, Normal S2, Other (3/6 systolic murmur to LLS border) Lungs: Clear Abdomen: Normal bowel sounds, Soft Extremities: No cyanosis Skin: No breakdown Labs LABS Study: CT CHEST WITH CONTRAST - PULMONARY ANGIOGRAM History: Hypoxia. Comparison: 12/15/2017 Technique: Helical CT of the chest performed after the administration of 100 cc Omnipaque 350 intravenous contrast and timed for angiographic evaluation of the pulmonary arteries per PE protocol. Coronal and sagittal 3D MIP reformations were obtained. One or more of the following individualized dose reduction techniques were utilized for this examination: 1. Automated exposure control 2. Adjustment of the mA and/or kV according to patient size 3. Use of iterative reconstruction technique. Findings: No pulmonary embolism is identified. Unremarkable aorta and visualized great vessels. No pericardial effusion. Scattered mildly prominent mediastinal and hilar lymph nodes. Software Application Tester right hilar lymph node on image 75 series 3 measuring 1.2 cm. Emphysematous changes of the lungs. Flattened opacities at both lung bases extending to the pleura. 3 mm right middle lobe pulmonary nodule on image 85. Millimetric pleural-based nodule in the right lower lobe, image 88. Possible right thyroid lobe nodule on image 5 series 3 measured at 8 mm and not meeting size criteria for dedicated follow-up. Multifocal osseous degenerative changes. No acute abnormality seen at the upper abdomen. IMPRESSION: 1. No acute pulmonary embolism is identified. 2. At the right more so than left lung bases, mostly linear opacities are identified that are suggestive of atelectasis but could potentially represent an infectious process in the appropriate clinic setting. 3. A few millimetric pulmonary nodules are noted. These do not meet size criteria for dedicated follow-up however given the appearance of the lungs and presumed risk factors for lung malignancy, optional CT follow-up in 12 months could be considered. 4. Scattered mildly prominent mediastinal and hilar lymph nodes are indeterminate. Attention on follow-up. Electronically signed by: GRZEGORZ POWELL MD (01/19/2019 11:11 PM) [facility] DICTATED and SIGNED BY: GRZEGORZ POWELL MD DATE: 01/19/192310 SPEC #: [id number] FLORENCIA: 01/19/19 STATUS: RES REQ #: [id number] RECD: 01/19/[address]: REJI CLAUDIO MD SOURCE: BLOOD ENTR: 01/19/[address]: SALLY MUNOZ MD [facility]: ORDERED: BCULT Procedure Result BLOOD CULTURE Preliminary NO GROWTH AFTER 1 DAY Laboratory Tests Test 01/20/19 11:10 01/20/19 13:22 01/20/19 15:30 01/20/19 20:39 Troponin I Quantitative < 0.017 ng/mL (0.000-0.055) Glucose (Fingerstick) 107 mg/dL (70-99) 167 mg/dL (70-99) Influenza Type A Antigen Negative (NEGATIVE) Influenza Type B Antigen Negative (NEGATIVE) Test 01/21/19 03:55 White Blood Count 5.4 x10^3/uL (4.0-11.0) Red Blood Count 4.49 x10^6/uL (3.50-5.40) Hemoglobin 13.2 g/dL (12.0-15.5) Hematocrit 40.4 % (36.0-47.0) Mean Corpuscular Volume 90 fL (79-100) Mean Corpuscular Hemoglobin 29 pg (25-35) Mean Corpuscular Hemoglobin Concent 33 g/dL (31-37) Red Cell Distribution Width 15.3 % (11.5-14.5) Platelet Count 232 x10^3/uL (140-400) Neutrophils (%) (Auto) 82 % (31-73) Lymphocytes (%) (Auto) 15 % (24-48) Monocytes (%) (Auto) 2 % (0-9) Eosinophils (%) (Auto) 0 % (0-3) Basophils (%) (Auto) 0 % (0-3) Neutrophils # (Auto) 4.4 x10^3/uL (1.8-7.7) Lymphocytes # (Auto) 0.8 x10^3/uL (1.0-4.8) Monocytes # (Auto) 0.1 x10^3/uL (0.0-1.1) Eosinophils # (Auto) 0.0 x10^3/uL (0.0-0.7) Basophils # (Auto) 0.0 x10^3/uL (0.0-0.2) Sodium Level 137 mmol/L (136-145) Potassium Level 4.3 mmol/L (3.5-5.1) Chloride Level 101 mmol/L (98-107) Carbon Dioxide Level 27 mmol/L (21-32) Anion Gap 9 (6-14) Blood Urea Nitrogen 13 mg/dL (7-20) Creatinine 0.8 mg/dL (0.6-1.0) Estimated GFR (Cockcroft-Gault) 87.7 BUN/Creatinine Ratio 16 (6-20) Glucose Level 157 mg/dL (70-99) Calcium Level 9.5 mg/dL (8.5-10.1) Total Bilirubin 0.3 mg/dL (0.2-1.0) Aspartate Amino Transf (AST/SGOT) 26 U/L (15-37) Alanine Aminotransferase (ALT/SGPT) 36 U/L (14-59) Alkaline Phosphatase 102 U/L (46-116) Total Protein 8.2 g/dL (6.4-8.2) Albumin 3.4 g/dL (3.4-5.0) Albumin/Globulin Ratio 0.7 (1.0-1.7) Assessment and Plan Assessmemt and Plan Problems Medical Problems: (1) Hypoxia Status: Acute (2) Insufficiency, respiratory, acute Status: Acute (3) PNA (pneumonia) Status: Acute Comment Review of Relevant I have reviewed the following items santino (where applicable) has been applied. Labs Laboratory Tests Test 01/19/19 19:30 01/19/19 21:13 01/20/19 11:10 01/20/19 13:22 White Blood Count 5.9 x10^3/uL (4.0-11.0) Red Blood Count 4.61 x10^6/uL (3.50-5.40) Hemoglobin 13.8 g/dL (12.0-15.5) Hematocrit 41.6 % (36.0-47.0) Mean Corpuscular Volume 90 fL (79-100) Mean Corpuscular Hemoglobin 30 pg (25-35) Mean Corpuscular Hemoglobin Concent 33 g/dL (31-37) Red Cell Distribution Width 15.1 % (11.5-14.5) Platelet Count 221 x10^3/uL (140-400) Neutrophils (%) (Auto) 58 % (31-73) Lymphocytes (%) (Auto) 31 % (24-48) Monocytes (%) (Auto) 10 % (0-9) Eosinophils (%) (Auto) 1 % (0-3) Basophils (%) (Auto) 1 % (0-3) Neutrophils # (Auto) 3.4 x10^3/uL (1.8-7.7) Lymphocytes # (Auto) 1.8 x10^3/uL (1.0-4.8) Monocytes # (Auto) 0.6 x10^3/uL (0.0-1.1) Eosinophils # (Auto) 0.1 x10^3/uL (0.0-0.7) Basophils # (Auto) 0.0 x10^3/uL (0.0-0.2) Sodium Level 140 mmol/L (136-145) Potassium Level 4.2 mmol/L (3.5-5.1) Chloride Level 103 mmol/L (98-107) Carbon Dioxide Level 30 mmol/L (21-32) Anion Gap 7 (6-14) Blood Urea Nitrogen 11 mg/dL (7-20) Creatinine 0.9 mg/dL (0.6-1.0) Estimated GFR (Cockcroft-Gault) 76.5 BUN/Creatinine Ratio 12 (6-20) Glucose Level 94 mg/dL (70-99) Lactic Acid Level 1.2 mmol/L (0.4-2.0) Calcium Level 9.4 mg/dL (8.5-10.1) Total Bilirubin 0.4 mg/dL (0.2-1.0) Aspartate Amino Transf (AST/SGOT) 26 U/L (15-37) Alanine Aminotransferase (ALT/SGPT) 27 U/L (14-59) Alkaline Phosphatase 102 U/L (46-116) Troponin I Quantitative < 0.017 ng/mL (0.000-0.055) < 0.017 ng/mL (0.000-0.055) DH-Nej-N-Type Natriuretic Peptide 14 pg/mL (0-124) Total Protein 8.3 g/dL (6.4-8.2) Albumin 3.7 g/dL (3.4-5.0) Albumin/Globulin Ratio 0.8 (1.0-1.7) D-Dimer (Justina) 2.47 ug/mlFEU (0.00-0.50) Glucose (Fingerstick) 107 mg/dL (70-99) Test 01/20/19 15:30 01/20/19 20:39 01/21/19 03:55 Influenza Type A Antigen Negative (NEGATIVE) Influenza Type B Antigen Negative (NEGATIVE) Glucose (Fingerstick) 167 mg/dL (70-99) White Blood Count 5.4 x10^3/uL (4.0-11.0) Red Blood Count 4.49 x10^6/uL (3.50-5.40) Hemoglobin 13.2 g/dL (12.0-15.5) Hematocrit 40.4 % (36.0-47.0) Mean Corpuscular Volume 90 fL (79-100) Mean Corpuscular Hemoglobin 29 pg (25-35) Mean Corpuscular Hemoglobin Concent 33 g/dL (31-37) Red Cell Distribution Width 15.3 % (11.5-14.5) Platelet Count 232 x10^3/uL (140-400) Neutrophils (%) (Auto) 82 % (31-73) Lymphocytes (%) (Auto) 15 % (24-48) Monocytes (%) (Auto) 2 % (0-9) Eosinophils (%) (Auto) 0 % (0-3) Basophils (%) (Auto) 0 % (0-3) Neutrophils # (Auto) 4.4 x10^3/uL (1.8-7.7) Lymphocytes # (Auto) 0.8 x10^3/uL (1.0-4.8) Monocytes # (Auto) 0.1 x10^3/uL (0.0-1.1) Eosinophils # (Auto) 0.0 x10^3/uL (0.0-0.7) Basophils # (Auto) 0.0 x10^3/uL (0.0-0.2) Sodium Level 137 mmol/L (136-145) Potassium Level 4.3 mmol/L (3.5-5.1) Chloride Level 101 mmol/L (98-107) Carbon Dioxide Level 27 mmol/L (21-32) Anion Gap 9 (6-14) Blood Urea Nitrogen 13 mg/dL (7-20) Creatinine 0.8 mg/dL (0.6-1.0) Estimated GFR (Cockcroft-Gault) 87.7 BUN/Creatinine Ratio 16 (6-20) Glucose Level 157 mg/dL (70-99) Calcium Level 9.5 mg/dL (8.5-10.1) Total Bilirubin 0.3 mg/dL (0.2-1.0) Aspartate Amino Transf (AST/SGOT) 26 U/L (15-37) Alanine Aminotransferase (ALT/SGPT) 36 U/L (14-59) Alkaline Phosphatase 102 U/L (46-116) Total Protein 8.2 g/dL (6.4-8.2) Albumin 3.4 g/dL (3.4-5.0) Albumin/Globulin Ratio 0.7 (1.0-1.7) Laboratory Tests Test 01/20/19 11:10 01/20/19 13:22 01/20/19 15:30 01/20/19 20:39 Troponin I Quantitative < 0.017 ng/mL (0.000-0.055) Glucose (Fingerstick) 107 mg/dL (70-99) 167 mg/dL (70-99) Influenza Type A Antigen Negative (NEGATIVE) Influenza Type B Antigen Negative (NEGATIVE) Test 01/21/19 03:55 White Blood Count 5.4 x10^3/uL (4.0-11.0) Red Blood Count 4.49 x10^6/uL (3.50-5.40) Hemoglobin 13.2 g/dL (12.0-15.5) Hematocrit 40.4 % (36.0-47.0) Mean Corpuscular Volume 90 fL (79-100) Mean Corpuscular Hemoglobin 29 pg (25-35) Mean Corpuscular Hemoglobin Concent 33 g/dL (31-37) Red Cell Distribution Width 15.3 % (11.5-14.5) Platelet Count 232 x10^3/uL (140-400) Neutrophils (%) (Auto) 82 % (31-73) Lymphocytes (%) (Auto) 15 % (24-48) Monocytes (%) (Auto) 2 % (0-9) Eosinophils (%) (Auto) 0 % (0-3) Basophils (%) (Auto) 0 % (0-3) Neutrophils # (Auto) 4.4 x10^3/uL (1.8-7.7) Lymphocytes # (Auto) 0.8 x10^3/uL (1.0-4.8) Monocytes # (Auto) 0.1 x10^3/uL (0.0-1.1) Eosinophils # (Auto) 0.0 x10^3/uL (0.0-0.7) Basophils # (Auto) 0.0 x10^3/uL (0.0-0.2) Sodium Level 137 mmol/L (136-145) Potassium Level 4.3 mmol/L (3.5-5.1) Chloride Level 101 mmol/L (98-107) Carbon Dioxide Level 27 mmol/L (21-32) Anion Gap 9 (6-14) Blood Urea Nitrogen 13 mg/dL (7-20) Creatinine 0.8 mg/dL (0.6-1.0) Estimated GFR (Cockcroft-Gault) 87.7 BUN/Creatinine Ratio 16 (6-20) Glucose Level 157 mg/dL (70-99) Calcium Level 9.5 mg/dL (8.5-10.1) Total Bilirubin 0.3 mg/dL (0.2-1.0) Aspartate Amino Transf (AST/SGOT) 26 U/L (15-37) Alanine Aminotransferase (ALT/SGPT) 36 U/L (14-59) Alkaline Phosphatase 102 U/L (46-116) Total Protein 8.2 g/dL (6.4-8.2) Albumin 3.4 g/dL (3.4-5.0) Albumin/Globulin Ratio 0.7 (1.0-1.7) Microbiology 01/19/19 Blood Culture - Preliminary, Resulted NO GROWTH AFTER 1 DAY Medications Current Medications Albuterol/ Ipratropium (Duoneb) 3 ml 1X ONCE NEB Last administered on 01/19/19at 19:30; Start 01/19/19 at 19:30; Stop 01/19/19 at 19:31; Status DC Iohexol (Omnipaque 350 Mg/ml) 100 ml 1X ONCE IV Last administered on 01/19/19at 21:30; Start 01/19/19 at 21:30; Stop 01/19/19 at 21:31; Status DC Info (CONTRAST GIVEN -- Rx MONITORING) 1 each PRN DAILY PRN MC SEE COMMENTS; Start 01/19/19 at 21:00; Stop 01/21/19 at 20:59 Ondansetron HCl (Zofran) 4 mg PRN Q8HRS PRN IV NAUSEA/VOMITING 1ST CHOICE; Start 01/20/19 at 00:45; Stop 01/21/19 at 00:44; Status DC Albuterol/ Ipratropium (Duoneb) 3 ml RTQID NEB Last administered on 01/20/19at 20:23; Start 01/20/19 at 08:00; Stop 01/21/19 at 07:59; Status DC Levofloxacin/ Dextrose 150 ml @ 100 mls/hr 1X ONCE IV Last administered on 01/20/19at 01:05; Start 01/20/19 at 01:00; Stop 01/20/19 at 02:29; Status DC Methylprednisolone Sodium Succinate (SOLU-Medrol 40MG VIAL) 40 mg Q8HRS IV Last administered on 01/21/19at 06:15; Start 01/20/19 at 14:00 Levofloxacin/ Dextrose 100 ml @ 100 mls/hr Q24H IV Last administered on 01/20/19at 20:49; Start 01/20/19 at 21:00 Budesonide (Pulmicort) 0.5 mg RTBID NEB Last administered on 01/20/19at 20:23; Start 01/20/19 at 20:00 Albuterol Sulfate (Ventolin Neb Soln) 2.5 mg Q4HRS W/A PRN INH SHORTNESS OF BREATH; Start 01/20/19 at 16:30 Alprazolam (Xanax) 1 mg BID PO Last administered on 01/20/19at 20:48; Start 01/20/19 at 21:00 Furosemide (Lasix) 20 mg DAILY PO ; Start 01/21/19 at 09:00 Metformin HCl (Glucophage) 500 mg BIDWMEALS PO ; Start 01/22/19 at 08:00 Montelukast Sodium (Singulair) 10 mg DAILY PO ; Start 01/21/19 at 09:00 Oxycodone/ Acetaminophen (Percocet 5/325) 1 tab Q4HRS PRN PO PAIN; Start 01/20/19 at 16:30 Phenytoin Sodium (Dilantin) 100 mg DAILY PO ; Start 01/21/19 at 09:00 Non-Formulary Medication (Fluticasone/ Salmeterol (Advair 500-50 Diskus)) 1 each BID INH ; Start 01/20/19 at 21:00; Status UNV Cetirizine HCl (ZyrTEC) 10 mg DAILY PO ; Start 01/21/19 at 09:00 Pantoprazole Sodium (Protonix) 40 mg DAILYAC PO ; Start 01/21/19 at 07:30 Oxycodone HCl (OxyCONTIN) 80 mg Q12HR PO Last administered on 01/20/19at 20:49; Start 01/20/19 at 21:00 Non-Formulary Medication (Pantoprazole Sodium (Protonix)) 40 mg DAILY PO ; Start 01/21/19 at 09:00; Status UNV Sodium Chloride (Normal Saline Flush) 3 ml QSHIFT PRN IV AFTER MEDS AND BLOOD DRAWS; Start 01/20/19 at 16:45 Ondansetron HCl (Zofran) 4 mg PRN Q4HRS PRN IV NAUSEA/VOMITING; Start 01/20/19 at 16:45 Acetaminophen (Tylenol) 650 mg PRN Q4HRS PRN PO TEMP OVER 100.4F OR MILD PAIN; Start 01/20/19 at 16:45 Al Hydroxide/Mg Hydroxide (Mylanta Plus Xs) 30 ml PRN DAILY PRN PO HEARTBURN / GAS; Start 01/20/19 at 16:45 Clonidine HCl (Catapres) 0.1 mg PRN Q6HRS PRN PO SBP>160 OR DBP>90; Start 01/20/19 at 16:45 Docusate Sodium (Colace) 100 mg PRN BID PRN PO CONSTIPATION; Start 01/20/19 at 16:45 Guaifenesin (Robitussin) 200 mg PRN Q4HRS PRN PO COUGH Last administered on 01/20/19at 20:48; Start 01/20/19 at 16:45 Lorazepam (Ativan) 0.5 mg PRN Q4HRS PRN PO ANXIETY / AGITATION; Start 01/20/19 at 16:45 Enoxaparin Sodium (Lovenox 40mg Syringe) 40 mg DAILY SQ ; Start 01/21/19 at 09:00 Active Scripts Active Reported Metformin Hcl 500 Mg Tablet 500 Mg PO BIDWMEALS Azithromycin Tablet (Azithromycin) 250 Mg Tablet 250 Mg PO PT STATED THAT SHE HAS BEEN TAKING ABX FOR THREE DAYS, UNABLE TO STATE HOW MANY TIME PER DAY OR WHY SHE IS TAKING IT Dilantin (Phenytoin Sodium Extended) 100 Mg Capsule 1 Cap PO DAILY Combivent Respimat Inhal (Ipratropium/Albuterol Sulfate) 4 Gm Aer.w.adap 4 Gm INH Advair 500-50 Diskus (Fluticasone/Salmeterol) 1 Each Disk.w.dev 1 Each INH BID Proair Hfa (Albuterol Sulfate) 8.5 Gm Hfa.aer.ad 8.5 Gm INH PRN Protonix (Pantoprazole Sodium) 20 Mg Tablet.dr 40 Mg PO DAILY Oxycontin (Oxycodone HCl) 80 Mg Tab.er.12h 80 Mg PO BID Loratadine 10 Mg Tablet 10 Mg PO DAILY Oxycodone-Acetaminophen 5-325 (Oxycodone Hcl/Acetaminophen) 1 Each Tablet 1 Tab PO Q4HRS PRN Alprazolam 1 Mg Tablet 1 Mg PO BID Furosemide 20 Mg Tablet 20 Mg PO DAILY Montelukast Sodium Tablet (Montelukast Sodium) 10 Mg Tablet 10 Mg PO DAILY Omeprazole 40 Mg Capsule.dr 40 Mg PO DAILY Vitals/I & O Vital Sign - Last 24 Hours 01/20/19 01/20/19 01/20/19 01/20/19 08:31 08:37 11:57 11:58 Temp 97.6 97.6 Pulse 85 Resp 20 B/P (MAP) 128/74 (92) Pulse Ox 94 92 87 O2 Delivery Nasal Cannula Nasal Cannula O2 Flow Rate 4.0 4.0 4.0 4.0 01/20/19 01/20/19 01/20/19 01/20/19 15:04 15:37 19:00 20:00 Temp 97.6 97.9 97.6 97.9 Pulse 95 97 Resp 20 20 B/P (MAP) 129/83 (98) 135/74 (94) Pulse Ox 92 94 97 O2 Delivery Nasal Cannula Nasal Cannula Room Air Nasal Cannula O2 Flow Rate 5.0 4.0 4.0 01/20/19 01/20/19 01/21/19 20:21 23:30 03:26 Temp 97.7 97.5 97.7 97.5 Pulse 102 91 Resp 20 18 B/P (MAP) 133/77 (95) 127/76 (93) Pulse Ox 92 97 O2 Delivery Nasal Cannula Nasal Cannula Nasal Cannula O2 Flow Rate 4.0 4.0 4.0 Intake and Output 01/20/19 01/20/19 01/21/19 15:00 23:00 07:00 Intake Total 600 ml 100 ml 500 ml Balance 600 ml 100 ml 500 ml BERRY JOSE MD Jan 21, 2019 08:19
[2019-01-21] MEDS ORDERED: NON FORMULARY ITEM (Pantoprazole Sodium (Protonix) 40 MG) PO SCH (09:00)
[2019-01-21] MEDS: ENOXAPARIN 40 MG/0.4 ML SYRINGE. SQ SCH (09:06)
[2019-01-21] MEDS: PHENYTOIN SODIUM EXTENDED 100 MG CAPSULE PO SCH (09:06)
[2019-01-21] MEDS: PANTOPRAZOLE 40 MG TABLET.DR. PO SCH (09:07)
[2019-01-21] MEDS: FUROSEMIDE 20 MG TABLET PO SCH (09:07)
[2019-01-21] MEDS: MONTELUKAST SODIUM 10 MG TABLET. PO SCH (09:07)
[2019-01-21] MEDS: oxyCODONE ER 40 MG TAB.ER.12H PO SCH ×2 (09:07→21:05)
[2019-01-21] MEDS: CETIRIZINE HCL 10 MG TABLET. PO SCH (09:07)
[2019-01-21] MEDS: ALPRAZolam 1 MG TABLET PO SCH ×2 (09:08→21:05)
--- NOTE | 2019-01-21 09:47 | PDOC ---
PULMONARY PROGRESS NOTES Subjective feels better Vitals Vital Signs Date Time Temp Pulse Resp B/P (MAP) Pulse Ox O2 Delivery O2 Flow Rate FiO2 01/21/19 09:07 18 Nasal Cannula 4.0 01/21/19 07:55 98.0 86 128/83 (98) 97 98.0 General: Alert, No acute distress Lungs: Clear Cardiovascular: S1 Abdomen: Soft, Non-tender Extremities: No Edema Skin: Warm Labs Laboratory Tests Test 01/19/19 19:30 01/19/19 21:13 01/20/19 11:10 01/20/19 13:22 White Blood Count 5.9 x10^3/uL (4.0-11.0) Red Blood Count 4.61 x10^6/uL (3.50-5.40) Hemoglobin 13.8 g/dL (12.0-15.5) Hematocrit 41.6 % (36.0-47.0) Mean Corpuscular Volume 90 fL (79-100) Mean Corpuscular Hemoglobin 30 pg (25-35) Mean Corpuscular Hemoglobin Concent 33 g/dL (31-37) Red Cell Distribution Width 15.1 % (11.5-14.5) Platelet Count 221 x10^3/uL (140-400) Neutrophils (%) (Auto) 58 % (31-73) Lymphocytes (%) (Auto) 31 % (24-48) Monocytes (%) (Auto) 10 % (0-9) Eosinophils (%) (Auto) 1 % (0-3) Basophils (%) (Auto) 1 % (0-3) Neutrophils # (Auto) 3.4 x10^3/uL (1.8-7.7) Lymphocytes # (Auto) 1.8 x10^3/uL (1.0-4.8) Monocytes # (Auto) 0.6 x10^3/uL (0.0-1.1) Eosinophils # (Auto) 0.1 x10^3/uL (0.0-0.7) Basophils # (Auto) 0.0 x10^3/uL (0.0-0.2) Sodium Level 140 mmol/L (136-145) Potassium Level 4.2 mmol/L (3.5-5.1) Chloride Level 103 mmol/L (98-107) Carbon Dioxide Level 30 mmol/L (21-32) Anion Gap 7 (6-14) Blood Urea Nitrogen 11 mg/dL (7-20) Creatinine 0.9 mg/dL (0.6-1.0) Estimated GFR (Cockcroft-Gault) 76.5 BUN/Creatinine Ratio 12 (6-20) Glucose Level 94 mg/dL (70-99) Lactic Acid Level 1.2 mmol/L (0.4-2.0) Calcium Level 9.4 mg/dL (8.5-10.1) Total Bilirubin 0.4 mg/dL (0.2-1.0) Aspartate Amino Transf (AST/SGOT) 26 U/L (15-37) Alanine Aminotransferase (ALT/SGPT) 27 U/L (14-59) Alkaline Phosphatase 102 U/L (46-116) Troponin I Quantitative < 0.017 ng/mL (0.000-0.055) < 0.017 ng/mL (0.000-0.055) [id number]-Type Natriuretic Peptide 14 pg/mL (0-124) Total Protein 8.3 g/dL (6.4-8.2) Albumin 3.7 g/dL (3.4-5.0) Albumin/Globulin Ratio 0.8 (1.0-1.7) D-Dimer (Justina) 2.47 ug/mlFEU (0.00-0.50) Glucose (Fingerstick) 107 mg/dL (70-99) Test 01/20/19 15:30 01/20/19 20:39 01/21/19 03:55 01/21/19 08:13 Influenza Type A Antigen Negative (NEGATIVE) Influenza Type B Antigen Negative (NEGATIVE) Glucose (Fingerstick) 167 mg/dL (70-99) 128 mg/dL (70-99) White Blood Count 5.4 x10^3/uL (4.0-11.0) Red Blood Count 4.49 x10^6/uL (3.50-5.40) Hemoglobin 13.2 g/dL (12.0-15.5) Hematocrit 40.4 % (36.0-47.0) Mean Corpuscular Volume 90 fL (79-100) Mean Corpuscular Hemoglobin 29 pg (25-35) Mean Corpuscular Hemoglobin Concent 33 g/dL (31-37) Red Cell Distribution Width 15.3 % (11.5-14.5) Platelet Count 232 x10^3/uL (140-400) Neutrophils (%) (Auto) 82 % (31-73) Lymphocytes (%) (Auto) 15 % (24-48) Monocytes (%) (Auto) 2 % (0-9) Eosinophils (%) (Auto) 0 % (0-3) Basophils (%) (Auto) 0 % (0-3) Neutrophils # (Auto) 4.4 x10^3/uL (1.8-7.7) Lymphocytes # (Auto) 0.8 x10^3/uL (1.0-4.8) Monocytes # (Auto) 0.1 x10^3/uL (0.0-1.1) Eosinophils # (Auto) 0.0 x10^3/uL (0.0-0.7) Basophils # (Auto) 0.0 x10^3/uL (0.0-0.2) Sodium Level 137 mmol/L (136-145) Potassium Level 4.3 mmol/L (3.5-5.1) Chloride Level 101 mmol/L (98-107) Carbon Dioxide Level 27 mmol/L (21-32) Anion Gap 9 (6-14) Blood Urea Nitrogen 13 mg/dL (7-20) Creatinine 0.8 mg/dL (0.6-1.0) Estimated GFR (Cockcroft-Gault) 87.7 BUN/Creatinine Ratio 16 (6-20) Glucose Level 157 mg/dL (70-99) Calcium Level 9.5 mg/dL (8.5-10.1) Total Bilirubin 0.3 mg/dL (0.2-1.0) Aspartate Amino Transf (AST/SGOT) 26 U/L (15-37) Alanine Aminotransferase (ALT/SGPT) 36 U/L (14-59) Alkaline Phosphatase 102 U/L (46-116) Total Protein 8.2 g/dL (6.4-8.2) Albumin 3.4 g/dL (3.4-5.0) Albumin/Globulin Ratio 0.7 (1.0-1.7) Laboratory Tests Test 01/20/19 11:10 01/20/19 13:22 01/20/19 15:30 01/20/19 20:39 Troponin I Quantitative < 0.017 ng/mL (0.000-0.055) Glucose (Fingerstick) 107 mg/dL (70-99) 167 mg/dL (70-99) Influenza Type A Antigen Negative (NEGATIVE) Influenza Type B Antigen Negative (NEGATIVE) Test 01/21/19 03:55 01/21/19 08:13 White Blood Count 5.4 x10^3/uL (4.0-11.0) Red Blood Count 4.49 x10^6/uL (3.50-5.40) Hemoglobin 13.2 g/dL (12.0-15.5) Hematocrit 40.4 % (36.0-47.0) Mean Corpuscular Volume 90 fL (79-100) Mean Corpuscular Hemoglobin 29 pg (25-35) Mean Corpuscular Hemoglobin Concent 33 g/dL (31-37) Red Cell Distribution Width 15.3 % (11.5-14.5) Platelet Count 232 x10^3/uL (140-400) Neutrophils (%) (Auto) 82 % (31-73) Lymphocytes (%) (Auto) 15 % (24-48) Monocytes (%) (Auto) 2 % (0-9) Eosinophils (%) (Auto) 0 % (0-3) Basophils (%) (Auto) 0 % (0-3) Neutrophils # (Auto) 4.4 x10^3/uL (1.8-7.7) Lymphocytes # (Auto) 0.8 x10^3/uL (1.0-4.8) Monocytes # (Auto) 0.1 x10^3/uL (0.0-1.1) Eosinophils # (Auto) 0.0 x10^3/uL (0.0-0.7) Basophils # (Auto) 0.0 x10^3/uL (0.0-0.2) Sodium Level 137 mmol/L (136-145) Potassium Level 4.3 mmol/L (3.5-5.1) Chloride Level 101 mmol/L (98-107) Carbon Dioxide Level 27 mmol/L (21-32) Anion Gap 9 (6-14) Blood Urea Nitrogen 13 mg/dL (7-20) Creatinine 0.8 mg/dL (0.6-1.0) Estimated GFR (Cockcroft-Gault) 87.7 BUN/Creatinine Ratio 16 (6-20) Glucose Level 157 mg/dL (70-99) Calcium Level 9.5 mg/dL (8.5-10.1) Total Bilirubin 0.3 mg/dL (0.2-1.0) Aspartate Amino Transf (AST/SGOT) 26 U/L (15-37) Alanine Aminotransferase (ALT/SGPT) 36 U/L (14-59) Alkaline Phosphatase 102 U/L (46-116) Total Protein 8.2 g/dL (6.4-8.2) Albumin 3.4 g/dL (3.4-5.0) Albumin/Globulin Ratio 0.7 (1.0-1.7) Glucose (Fingerstick) 128 mg/dL (70-99) Medications Active Scripts Medications Dose Route/Sig Max Daily Dose Days Date Category Dose Instructions Metformin Hcl 500 Mg Tablet 500 Mg PO BIDWMEALS 01/20/19 Reported Azithromycin Tablet (Azithromycin) 250 Mg Tablet 250 Mg PO 06/14/17 Reported PT STATED THAT SHE HAS BEEN TAKING ABX FOR THREE DAYS, UNABLE TO STATE HOW MANY TIME PER DAY OR WHY SHE IS TAKING IT Dilantin (Phenytoin Sodium Extended) 100 Mg Capsule 1 Cap PO DAILY 06/14/17 Reported Combivent Respimat Inhal (Ipratropium/Albuterol Sulfate) 4 Gm Aer.w.adap 4 Gm INH 06/14/17 Reported Advair 500-50 Diskus (Fluticasone/Salmeterol) 1 Each Disk.w.dev 1 Each INH BID 06/14/17 Reported Proair Hfa (Albuterol Sulfate) 8.5 Gm Hfa.aer.ad 8.5 Gm INH PRN 06/14/17 Reported Protonix (Pantoprazole Sodium) 20 Mg Tablet.dr 40 Mg PO DAILY 06/14/17 Reported Oxycontin (Oxycodone HCl) 80 Mg Tab.er.12h 80 Mg PO BID 06/14/17 Reported Loratadine 10 Mg Tablet 10 Mg PO DAILY 06/14/17 Reported Oxycodone-Acetaminophen 5-325 (Oxycodone Hcl/Acetaminophen) 1 Each Tablet 1 Tab PO Q4HRS PRN 06/14/17 Reported Alprazolam 1 Mg Tablet 1 Mg PO BID 06/14/17 Reported Furosemide 20 Mg Tablet 20 Mg PO DAILY 06/14/17 Reported Montelukast Sodium Tablet (Montelukast Sodium) 10 Mg Tablet 10 Mg PO DAILY 06/14/17 Reported Omeprazole 40 Mg Capsule.dr 40 Mg PO DAILY 06/14/17 Reported Impression . 1. Acute on chronic hypoxic respiratory failure secondary to acute exacerbation of chronic obstructive pulmonary disease and likely viral basal pneumonia. The patient was exposed to respiratory syncytial virus infection from grand child 2. Abnormal CT chest with some basal atelectasis versus infiltrate. Likely infectious etiology. 3. Underlying morbid obesity. 4. Underlying chronic obstructive pulmonary disease, unknown FEV1. Plan . 1. Continue with present oxygen to keep saturations 92% and above and gradual wean. 2. Continue DuoNebs. 3. steroid inhaler. 4. oral prednisone. 5. Continue Levaquin. 6. Weight loss is advised. 7. clinically better FRANCE CHRISTINA MD Jan 21, 2019 09:47
[2019-01-21 11:22] VITALS: BP 137/84
[2019-01-21] MEDS: guaiFENesin ORAL 200 MG/10 ML LIQUID. PO PRN (13:54)
--- NOTE | 2019-01-21 14:03 | NUR ---
SS following up with discharge planning. PT/OT evaluated pt and recommended home at discharge. Pt has endoscopy technican at home to assist her. SS will continue to follow for discharge planning.
[2019-01-21 15:09] VITALS: BP 122/79
[2019-01-21 19:30] VITALS: BP 142/83
[2019-01-21] MEDS: LACTOBACILLUS RHAMNOSUS GG 1 CAPSULE. PO SCH (21:04)
[2019-01-21 23:30] VITALS: BP 130/82
[2019-01-22] MEDS: methylPREDNISolone SOD SUCC PF 40 MG/ML VIAL. IV SCH ×3 (01:23→21:27)
[2019-01-22 03:30] VITALS: BP 139/87
[2019-01-22 06:41] LABS: CALCIUM 9.3 mg/dL (8.5-10.1); CREATININE 0.9 mg/dL (0.6-1.0); GFR 76.5; POTASSIUM 4.5 mmol/L (3.5-5.1)
[2019-01-22 07:00] VITALS: BP 140/73
[2019-01-22] MEDS: ALBUTEROL SULFATE 2.5 MG/3 ML NEBU. INH PRN (07:20)
[2019-01-22] MEDS: BUDESONIDE 0.5 MG/2 ML NEBU. NEB SCH ×2 (07:20→20:01)
[2019-01-22] MEDS: FUROSEMIDE 20 MG TABLET PO SCH (08:45)
[2019-01-22] MEDS: ALPRAZolam 1 MG TABLET PO SCH ×2 (08:46→21:27)
[2019-01-22] MEDS: LACTOBACILLUS RHAMNOSUS GG 1 CAPSULE. PO SCH ×2 (08:46→21:26)
[2019-01-22] MEDS: oxyCODONE ER 40 MG TAB.ER.12H PO SCH ×2 (08:47→21:27)
[2019-01-22] MEDS: MONTELUKAST SODIUM 10 MG TABLET. PO SCH (08:47)
[2019-01-22] MEDS: PANTOPRAZOLE 40 MG TABLET.DR. PO SCH (08:47)
[2019-01-22] MEDS: metFORMIN 500 MG TABLET PO SCH ×2 (08:47→17:51)
[2019-01-22] MEDS: CETIRIZINE HCL 10 MG TABLET. PO SCH (08:47)
[2019-01-22] MEDS: PHENYTOIN SODIUM EXTENDED 100 MG CAPSULE PO SCH (08:48)
[2019-01-22] MEDS: ENOXAPARIN 40 MG/0.4 ML SYRINGE. SQ SCH (08:48)
[2019-01-22 11:00] VITALS: BP 125/72
--- NOTE | 2019-01-22 11:06 | PDOC ---
PROGRESS NOTES History of Present Illness History of Present Illness VTE Prophylaxis Ordered VTE Prophylaxis Devices: No VTE Pharmacological Prophylaxi: Yes Assessment/Plan Assessment/Plan IMPRESSION: 1. Acute on chronic hypoxic respiratory failure secondary to acute exacerbation WITH RESP FAILURE, EXAC of chronic obstructive pulmonary disease and likely viral basal pneumonia. 2. No acute pulmonary embolism is identified.ON CTA 3. At the right more so than left lung bases, mostly linear opacities are identified that are suggestive of atelectasis but could potentially represent an infectious process in the appropriate clinic setting. 4. few millimetric pulmonary nodules are noted. These do not meet size criteria for dedicated follow-up however given the appearance of the lungs and presumed risk factors for lung malignancy, optional CT follow-up in 12 months could be considered. 5. MORBID OBESITY 6. Moderate pulmonary HTN 7. RIGHT SHOULDER PAIN ON X-RAY There is no evidence for acute fracture or dislocation. AC joint is congruent. Humeral head is not high riding. 8. ATYPICAL CHEST PAIN 9. Doppler and Color Flow revealed mild to moderate tricuspid regurgitation. Doppler and Color Flow revealed moderate pulmonary hypertension. 01/22 more soa, tachy PLAN ADMIT EMPERIC IV ANTIBIOTICS PULM CONSULT IV STEROID TAPER DVT PROPHYLAXIS PAIN CONTROL cxr today echo cardiology consult 37 MIN PT EXAM, CHART REVIEW, > 50% OF TIME SPENT WITH EXAM, CHART REVIEW, PT CARE COORDINATION Vitals Vitals Vital Signs Date Time Temp Pulse Resp B/P (MAP) Pulse Ox O2 Delivery O2 Flow Rate FiO2 01/22/19 08:47 Nasal Cannula 4.0 01/22/19 07:21 93 01/22/19 07:00 98.2 76 20 140/73 (95) 98.2 Physical Exam Physical Exam Neck: Normal range of motion, no tenderness, supple, no stridor. [] Cardiovascular:Heart rate regular rhythm, no murmur [] Lungs & Thorax: Bilateral crackles [] Abdomen: Bowel sounds normal, soft, no tenderness, no masses, no pulsatile ma sses. [] Skin: Warm, dry, no erythema, no rash. [] Back: No tenderness, no CVA tenderness. [] Extremities: No tenderness, no cyanosis, no clubbing, ROM intact, no edema. [] Neurologic: Alert and oriented X 3, normal motor function, normal sensory function, no focal deficits noted. [] Psychologic: Affect normal, judgment normal, mood normal. [] General: Alert, Oriented X3, Cooperative HEENT: Atraumatic Breasts: Not examined Abdomen: Soft Rectal Exam: not examined Extremities: No cyanosis Neuro: Normal speech, Strength at 5/5 X4 ext, Cranial nerves 3-12 NL Psych/Mental Status: Mental status NL, Mood NL General: Alert, Oriented X3, Cooperative, mild distress Heart: Regular rate (SR no ectopies), Normal S1, Normal S2, Other (3/6 systolic murmur to LLS border) Lungs: Clear Abdomen: Normal bowel sounds, Soft Extremities: No cyanosis Skin: No breakdown Labs LABS TDI Lateral E' P. V 12.15cm/s Medial E' P. V 11.55cm/s Pulmonary Valve PV Peak Velocity 138.6cm/s Tricuspid Valve TR P. Velocity 397cm/s TR Peak Gr. 63mmHg LEFT VENTRICLE The left ventricle is normal size. There is normal left ventricular wall thickness. The left ventricular systolic function is normal. The ejection fraction is 55-60%. There is normal LV segmental wall motion. No left ventricle thrombus noted on this study. There is no ventricular septal defect visualized. There is no left ventricular aneurysm. There is no mass noted in the left ventricle. RIGHT VENTRICLE The right ventricle is normal size. There is normal right ventricular wall thickness. The right ventricular systolic function is normal. ATRIA The left atrium size is normal. The right atrium size is normal. The interatrial septum is intact with no evidence for an atrial septal defect or patent foramen ovale as noted on 2-D or Doppler imaging. AORTIC VALVE The aortic valve is normal in structure and function. Doppler and Color Flow revealed no significant aortic regurgitation. There is no significant aortic valvular stenosis. There is no aortic valvular vegetation. MITRAL VALVE The mitral valve is normal in structure and function. There is no evidence of mitral valve prolapse. There is no mitral valve stenosis. Doppler and Color-flow revealed trace mitral regurgitation. TRICUSPID VALVE The tricuspid valve is normal in structure and function. Doppler and Color Flow revealed mild to moderate tricuspid regurgitation. Doppler and Color Flow revealed moderate pulmonary hypertension. There is no tricuspid valve prolapse or vegetation. There is no tricuspid valve stenosis. PULMONIC VALVE The pulmonary valve is normal in structure and function. Doppler and Color Flow revealed no pulmonic valvular regurgitation. There is no pulmonic valvular stenosis. GREAT VESSELS The aortic root is normal in size. The IVC is dilated and collapses <50% with inspiration. PERICARDIAL EFFUSION There is no evidence of significant pericardial effusion. Critical Notification Critical Value: No <Conclusion> The left ventricle is normal size. The left ventricular systolic function is normal. The ejection fraction is 55-60%. There is no significant aortic valvular stenosis. Doppler and Color Flow revealed no significant aortic regurgitation. Doppler and Color-flow revealed trace mitral regurgitation. Doppler and Color Flow revealed mild to moderate tricuspid regurgitation. Doppler and Color Flow revealed moderate pulmonary hypertension. Signed by : Sean Christianson MD Electronically Approved : 06/15/2017 14:32:48 DICTATED and SIGNED BY: SEAN CHRISTIANSON MD DATE: 06/15/17 1432 Laboratory Tests Test 01/21/19 21:37 01/22/19 04:30 01/22/19 07:50 Glucose (Fingerstick) 229 mg/dL (70-99) 101 mg/dL (70-99) Sodium Level 140 mmol/L (136-145) Potassium Level 4.5 mmol/L (3.5-5.1) Chloride Level 103 mmol/L (98-107) Carbon Dioxide Level 26 mmol/L (21-32) Anion Gap 11 (6-14) Blood Urea Nitrogen 17 mg/dL (7-20) Creatinine 0.9 mg/dL (0.6-1.0) Estimated GFR (Cockcroft-Gault) 76.5 Glucose Level 185 mg/dL (70-99) Calcium Level 9.3 mg/dL (8.5-10.1) Assessment and Plan Assessmemt and Plan Problems Medical Problems: (1) Hypoxia Status: Acute (2) Insufficiency, respiratory, acute Status: Acute (3) PNA (pneumonia) Status: Acute Comment Review of Relevant I have reviewed the following items santino (where applicable) has been applied. Labs Laboratory Tests Test 01/20/19 11:10 01/20/19 13:22 01/20/19 15:30 01/20/19 20:39 Troponin I Quantitative < 0.017 ng/mL (0.000-0.055) Glucose (Fingerstick) 107 mg/dL (70-99) 167 mg/dL (70-99) Influenza Type A Antigen Negative (NEGATIVE) Influenza Type B Antigen Negative (NEGATIVE) Test 01/21/19 03:55 01/21/19 08:13 01/21/19 21:37 01/22/19 04:30 White Blood Count 5.4 x10^3/uL (4.0-11.0) Red Blood Count 4.49 x10^6/uL (3.50-5.40) Hemoglobin 13.2 g/dL (12.0-15.5) Hematocrit 40.4 % (36.0-47.0) Mean Corpuscular Volume 90 fL (79-100) Mean Corpuscular Hemoglobin 29 pg (25-35) Mean Corpuscular Hemoglobin Concent 33 g/dL (31-37) Red Cell Distribution Width 15.3 % (11.5-14.5) Platelet Count 232 x10^3/uL (140-400) Neutrophils (%) (Auto) 82 % (31-73) Lymphocytes (%) (Auto) 15 % (24-48) Monocytes (%) (Auto) 2 % (0-9) Eosinophils (%) (Auto) 0 % (0-3) Basophils (%) (Auto) 0 % (0-3) Neutrophils # (Auto) 4.4 x10^3/uL (1.8-7.7) Lymphocytes # (Auto) 0.8 x10^3/uL (1.0-4.8) Monocytes # (Auto) 0.1 x10^3/uL (0.0-1.1) Eosinophils # (Auto) 0.0 x10^3/uL (0.0-0.7) Basophils # (Auto) 0.0 x10^3/uL (0.0-0.2) Sodium Level 137 mmol/L (136-145) 140 mmol/L (136-145) Potassium Level 4.3 mmol/L (3.5-5.1) 4.5 mmol/L (3.5-5.1) Chloride Level 101 mmol/L (98-107) 103 mmol/L (98-107) Carbon Dioxide Level 27 mmol/L (21-32) 26 mmol/L (21-32) Anion Gap 9 (6-14) 11 (6-14) Blood Urea Nitrogen 13 mg/dL (7-20) 17 mg/dL (7-20) Creatinine 0.8 mg/dL (0.6-1.0) 0.9 mg/dL (0.6-1.0) Estimated GFR (Cockcroft-Gault) 87.7 76.5 BUN/Creatinine Ratio 16 (6-20) Glucose Level 157 mg/dL (70-99) 185 mg/dL (70-99) Calcium Level 9.5 mg/dL (8.5-10.1) 9.3 mg/dL (8.5-10.1) Total Bilirubin 0.3 mg/dL (0.2-1.0) Aspartate Amino Transf (AST/SGOT) 26 U/L (15-37) Alanine Aminotransferase (ALT/SGPT) 36 U/L (14-59) Alkaline Phosphatase 102 U/L (46-116) Total Protein 8.2 g/dL (6.4-8.2) Albumin 3.4 g/dL (3.4-5.0) Albumin/Globulin Ratio 0.7 (1.0-1.7) Glucose (Fingerstick) 128 mg/dL (70-99) 229 mg/dL (70-99) Test 01/22/19 07:50 Glucose (Fingerstick) 101 mg/dL (70-99) Laboratory Tests Test 01/21/19 21:37 01/22/19 04:30 01/22/19 07:50 Glucose (Fingerstick) 229 mg/dL (70-99) 101 mg/dL (70-99) Sodium Level 140 mmol/L (136-145) Potassium Level 4.5 mmol/L (3.5-5.1) Chloride Level 103 mmol/L (98-107) Carbon Dioxide Level 26 mmol/L (21-32) Anion Gap 11 (6-14) Blood Urea Nitrogen 17 mg/dL (7-20) Creatinine 0.9 mg/dL (0.6-1.0) Estimated GFR (Cockcroft-Gault) 76.5 Glucose Level 185 mg/dL (70-99) Calcium Level 9.3 mg/dL (8.5-10.1) Microbiology 01/19/19 Blood Culture - Preliminary, Resulted NO GROWTH AFTER 2 DAYS Medications Current Medications Albuterol/ Ipratropium (Duoneb) 3 ml 1X ONCE NEB Last administered on 01/19/19at 19:30; Start 01/19/19 at 19:30; Stop 01/19/19 at 19:31; Status DC Iohexol (Omnipaque 350 Mg/ml) 100 ml 1X ONCE IV Last administered on 01/19/19 21:30; Start 01/19/19 at 21:30; Stop 01/19/19 at 21:31; Status DC Info (CONTRAST GIVEN -- Rx MONITORING) 1 each PRN DAILY PRN MC SEE COMMENTS; Start 01/19/19 at 21:00; Stop 01/21/19 at 20:59; Status DC Ondansetron HCl (Zofran) 4 mg PRN Q8HRS PRN IV NAUSEA/VOMITING 1ST CHOICE; Start 01/20/19 at 00:45; Stop 01/21/19 at 00:44; Status DC Albuterol/ Ipratropium (Duoneb) 3 ml RTQID NEB Last administered on 01/20/19at 20:23; Start 01/20/19 at 08:00; Stop 01/21/19 at 07:59; Status DC Levofloxacin/ Dextrose 150 ml @ 100 mls/hr 1X ONCE IV Last administered on 01/20/19at 01:05; Start 01/20/19 at 01:00; Stop 01/20/19 at 02:29; Status DC Methylprednisolone Sodium Succinate (SOLU-Medrol 40MG VIAL) 40 mg Q8HRS IV Last administered on 01/21/19at 13:51; Start 01/20/19 at 14:00 Levofloxacin/ Dextrose 100 ml @ 100 mls/hr Q24H IV Last administered on 01/20/19at 20:49; Start 01/20/19 at 21:00 Budesonide (Pulmicort) 0.5 mg RTBID NEB Last administered on 01/22/19at 07:20; Start 01/20/19 at 20:00 Albuterol Sulfate (Ventolin Neb Soln) 2.5 mg Q4HRS W/A PRN INH SHORTNESS OF BREATH Last administered on 01/22/19 07:20; Start 01/20/19 at 16:30 Alprazolam (Xanax) 1 mg BID PO Last administered on 01/22/19 08:46; Start 01/20/19 at 21:00 Furosemide (Lasix) 20 mg DAILY PO Last administered on 01/22/19at 08:45; Start 01/21/19 at 09:00 Metformin HCl (Glucophage) 500 mg BIDWMEALS PO Last administered on 01/22/19 08:47; Start 01/22/19 at 08:00 Montelukast Sodium (Singulair) 10 mg DAILY PO Last administered on 01/22/19at 08:47; Start 01/21/19 at 09:00 Oxycodone/ Acetaminophen (Percocet 5/325) 1 tab Q4HRS PRN PO PAIN; Start 01/20/19 at 16:30 Phenytoin Sodium (Dilantin) 100 mg DAILY PO Last administered on 01/22/19at 08:48; Start 01/21/19 at 09:00 Non-Formulary Medication (Fluticasone/ Salmeterol (Advair 500-50 Diskus)) 1 each BID INH ; Start 01/20/19 at 21:00; Status UNV Cetirizine HCl (ZyrTEC) 10 mg DAILY PO Last administered on 01/22/19 08:47; Start 01/21/19 at 09:00 Pantoprazole Sodium (Protonix) 40 mg DAILYAC PO Last administered on 01/22/19 08:47; Start 01/21/19 at 07:30 Oxycodone HCl (OxyCONTIN) 80 mg Q12HR PO Last administered on 01/22/19 08:47; Start 01/20/19 at 21:00 Non-Formulary Medication (Pantoprazole Sodium (Protonix)) 40 mg DAILY PO ; Start 01/21/19 at 09:00; Status UNV Sodium Chloride (Normal Saline Flush) 3 ml QSHIFT PRN IV AFTER MEDS AND BLOOD DRAWS; Start 01/20/19 at 16:45 Ondansetron HCl (Zofran) 4 mg PRN Q4HRS PRN IV NAUSEA/VOMITING; Start 01/20/19 at 16:45 Acetaminophen (Tylenol) 650 mg PRN Q4HRS PRN PO TEMP OVER 100.4F OR MILD PAIN; Start 01/20/19 at 16:45 Al Hydroxide/Mg Hydroxide (Mylanta Plus Xs) 30 ml PRN DAILY PRN PO HEARTBURN / GAS; Start 01/20/19 at 16:45 Clonidine HCl (Catapres) 0.1 mg PRN Q6HRS PRN PO SBP>160 OR DBP>90; Start 01/20/19 at 16:45 Docusate Sodium (Colace) 100 mg PRN BID PRN PO CONSTIPATION; Start 01/20/19 at 16:45 Guaifenesin (Robitussin) 200 mg PRN Q4HRS PRN PO COUGH Last administered on 01/21/19at 13:54; Start 01/20/19 at 16:45 Lorazepam (Ativan) 0.5 mg PRN Q4HRS PRN PO ANXIETY / AGITATION; Start 01/20/19 at 16:45 Enoxaparin Sodium (Lovenox 40mg Syringe) 40 mg DAILY SQ Last administered on 01/22/19at 08:48; Start 01/21/19 at 09:00 Lactobacillus Rhamnosus (Culturelle) 1 cap BID PO Last administered on 01/22/19at 08:46; Start 01/21/19 at 21:00 Levofloxacin (Levaquin) 500 mg DAILY06 PO Last administered on 01/22/19at 05:30; Start 01/21/19 at 23:00 Active Scripts Active Reported Metformin Hcl 500 Mg Tablet 500 Mg PO BIDWMEALS Azithromycin Tablet (Azithromycin) 250 Mg Tablet 250 Mg PO PT STATED THAT SHE HAS BEEN TAKING ABX FOR THREE DAYS, UNABLE TO STATE HOW MANY TIME PER DAY OR WHY SHE IS TAKING IT Dilantin (Phenytoin Sodium Extended) 100 Mg Capsule 1 Cap PO DAILY Combivent Respimat Inhal (Ipratropium/Albuterol Sulfate) 4 Gm Aer.w.adap 4 Gm INH Advair 500-50 Diskus (Fluticasone/Salmeterol) 1 Each Disk.w.dev 1 Each INH BID Proair Hfa (Albuterol Sulfate) 8.5 Gm Hfa.aer.ad 8.5 Gm INH PRN Protonix (Pantoprazole Sodium) 20 Mg Tablet.dr 40 Mg PO DAILY Oxycontin (Oxycodone HCl) 80 Mg Tab.er.12h 80 Mg PO BID Loratadine 10 Mg Tablet 10 Mg PO DAILY Oxycodone-Acetaminophen 5-325 (Oxycodone Hcl/Acetaminophen) 1 Each Tablet 1 Tab PO Q4HRS PRN Alprazolam 1 Mg Tablet 1 Mg PO BID Furosemide 20 Mg Tablet 20 Mg PO DAILY Montelukast Sodium Tablet (Montelukast Sodium) 10 Mg Tablet 10 Mg PO DAILY Omeprazole 40 Mg Capsule.dr 40 Mg PO DAILY Vitals/I & O Vital Sign - Last 24 Hours 01/21/19 01/21/19 01/21/19 01/21/19 11:22 13:08 15:09 19:30 Temp 97.6 98.0 97.6 97.6 98.0 97.6 Pulse 95 84 87 Resp 18 16 18 19 B/P (MAP) 137/84 (101) 122/79 (93) 142/83 (102) Pulse Ox 93 93 97 O2 Delivery Nasal Cannula Room Air Nasal Cannula Simple Mask O2 Flow Rate 4.0 4.0 6.0 01/21/19 01/21/19 01/21/19 01/21/19 20:05 20:48 21:05 23:30 Temp 97.8 97.8 Pulse 91 Resp 19 B/P (MAP) 130/82 (98) Pulse Ox 88 92 O2 Delivery Nasal Cannula Room Air Nasal Cannula Simple Mask O2 Flow Rate 4.0 4.0 6.0 01/22/19 01/22/19 01/22/19 01/22/19 01:05 03:30 07:00 07:21 Temp 97.5 98.2 97.5 98.2 Pulse 84 76 Resp 19 20 B/P (MAP) 139/87 (104) 140/73 (95) Pulse Ox 92 91 92 93 O2 Delivery Nasal Cannula Nasal Cannula Nasal Cannula Nasal Cannula O2 Flow Rate 4.0 3.0 4.0 4.0 01/22/19 08:47 O2 Delivery Nasal Cannula O2 Flow Rate 4.0 Intake and Output 01/21/19 01/21/19 01/22/19 15:00 23:00 07:00 Intake Total 360 ml 200 ml 700 ml Balance 360 ml 200 ml 700 ml BERRY JOSE MD Jan 22, 2019 11:06
--- NOTE | 2019-01-22 11:40 | PDOC ---
PULMONARY PROGRESS NOTES Subjective feels better c/o back pain Vitals Vital Signs Date Time Temp Pulse Resp B/P (MAP) Pulse Ox O2 Delivery O2 Flow Rate FiO2 01/22/19 08:47 Nasal Cannula 4.0 01/22/19 07:21 93 01/22/19 07:00 98.2 76 20 140/73 (95) 98.2 General: Alert, No acute distress Lungs: Wheezing (improved) Cardiovascular: S1 Abdomen: Soft, Non-tender Extremities: No Edema Skin: Warm Labs Laboratory Tests Test 01/20/19 13:22 01/20/19 15:30 01/20/19 20:39 01/21/19 03:55 Glucose (Fingerstick) 107 mg/dL (70-99) 167 mg/dL (70-99) Influenza Type A Antigen Negative (NEGATIVE) Influenza Type B Antigen Negative (NEGATIVE) White Blood Count 5.4 x10^3/uL (4.0-11.0) Red Blood Count 4.49 x10^6/uL (3.50-5.40) Hemoglobin 13.2 g/dL (12.0-15.5) Hematocrit 40.4 % (36.0-47.0) Mean Corpuscular Volume 90 fL (79-100) Mean Corpuscular Hemoglobin 29 pg (25-35) Mean Corpuscular Hemoglobin Concent 33 g/dL (31-37) Red Cell Distribution Width 15.3 % (11.5-14.5) Platelet Count 232 x10^3/uL (140-400) Neutrophils (%) (Auto) 82 % (31-73) Lymphocytes (%) (Auto) 15 % (24-48) Monocytes (%) (Auto) 2 % (0-9) Eosinophils (%) (Auto) 0 % (0-3) Basophils (%) (Auto) 0 % (0-3) Neutrophils # (Auto) 4.4 x10^3/uL (1.8-7.7) Lymphocytes # (Auto) 0.8 x10^3/uL (1.0-4.8) Monocytes # (Auto) 0.1 x10^3/uL (0.0-1.1) Eosinophils # (Auto) 0.0 x10^3/uL (0.0-0.7) Basophils # (Auto) 0.0 x10^3/uL (0.0-0.2) Sodium Level 137 mmol/L (136-145) Potassium Level 4.3 mmol/L (3.5-5.1) Chloride Level 101 mmol/L (98-107) Carbon Dioxide Level 27 mmol/L (21-32) Anion Gap 9 (6-14) Blood Urea Nitrogen 13 mg/dL (7-20) Creatinine 0.8 mg/dL (0.6-1.0) Estimated GFR (Cockcroft-Gault) 87.7 BUN/Creatinine Ratio 16 (6-20) Glucose Level 157 mg/dL (70-99) Calcium Level 9.5 mg/dL (8.5-10.1) Total Bilirubin 0.3 mg/dL (0.2-1.0) Aspartate Amino Transf (AST/SGOT) 26 U/L (15-37) Alanine Aminotransferase (ALT/SGPT) 36 U/L (14-59) Alkaline Phosphatase 102 U/L (46-116) Total Protein 8.2 g/dL (6.4-8.2) Albumin 3.4 g/dL (3.4-5.0) Albumin/Globulin Ratio 0.7 (1.0-1.7) Test 01/21/19 08:13 01/21/19 21:37 01/22/19 04:30 01/22/19 07:50 Glucose (Fingerstick) 128 mg/dL (70-99) 229 mg/dL (70-99) 101 mg/dL (70-99) Sodium Level 140 mmol/L (136-145) Potassium Level 4.5 mmol/L (3.5-5.1) Chloride Level 103 mmol/L (98-107) Carbon Dioxide Level 26 mmol/L (21-32) Anion Gap 11 (6-14) Blood Urea Nitrogen 17 mg/dL (7-20) Creatinine 0.9 mg/dL (0.6-1.0) Estimated GFR (Cockcroft-Gault) 76.5 Glucose Level 185 mg/dL (70-99) Calcium Level 9.3 mg/dL (8.5-10.1) Laboratory Tests Test 01/21/19 21:37 01/22/19 04:30 01/22/19 07:50 Glucose (Fingerstick) 229 mg/dL (70-99) 101 mg/dL (70-99) Sodium Level 140 mmol/L (136-145) Potassium Level 4.5 mmol/L (3.5-5.1) Chloride Level 103 mmol/L (98-107) Carbon Dioxide Level 26 mmol/L (21-32) Anion Gap 11 (6-14) Blood Urea Nitrogen 17 mg/dL (7-20) Creatinine 0.9 mg/dL (0.6-1.0) Estimated GFR (Cockcroft-Gault) 76.5 Glucose Level 185 mg/dL (70-99) Calcium Level 9.3 mg/dL (8.5-10.1) Medications Active Scripts Medications Dose Route/Sig Max Daily Dose Days Date Category Dose Instructions Metformin Hcl 500 Mg Tablet 500 Mg PO BIDWMEALS 01/20/19 Reported Azithromycin Tablet (Azithromycin) 250 Mg Tablet 250 Mg PO 06/14/17 Reported PT STATED THAT SHE HAS BEEN TAKING ABX FOR THREE DAYS, UNABLE TO STATE HOW MANY TIME PER DAY OR WHY SHE IS TAKING IT Dilantin (Phenytoin Sodium Extended) 100 Mg Capsule 1 Cap PO DAILY 06/14/17 Reported Combivent Respimat Inhal (Ipratropium/Albuterol Sulfate) 4 Gm Aer.w.adap 4 Gm INH 06/14/17 Reported Advair 500-50 Diskus (Fluticasone/Salmeterol) 1 Each Disk.w.dev 1 Each INH BID 06/14/17 Reported Proair Hfa (Albuterol Sulfate) 8.5 Gm Hfa.aer.ad 8.5 Gm INH PRN 06/14/17 Reported Protonix (Pantoprazole Sodium) 20 Mg Tablet.dr 40 Mg PO DAILY 06/14/17 Reported Oxycontin (Oxycodone HCl) 80 Mg Tab.er.12h 80 Mg PO BID 06/14/17 Reported Loratadine 10 Mg Tablet 10 Mg PO DAILY 06/14/17 Reported Oxycodone-Acetaminophen 5-325 (Oxycodone Hcl/Acetaminophen) 1 Each Tablet 1 Tab PO Q4HRS PRN 06/14/17 Reported Alprazolam 1 Mg Tablet 1 Mg PO BID 06/14/17 Reported Furosemide 20 Mg Tablet 20 Mg PO DAILY 06/14/17 Reported Montelukast Sodium Tablet (Montelukast Sodium) 10 Mg Tablet 10 Mg PO DAILY 06/14/17 Reported Omeprazole 40 Mg Capsule.dr 40 Mg PO DAILY 06/14/17 Reported Impression . 1. Acute on chronic hypoxic respiratory failure secondary to acute exacerbation of chronic obstructive pulmonary disease and likely viral basal pneumonia. The patient was exposed to respiratory syncytial virus infection from grand child 2. Abnormal CT chest with some basal atelectasis versus infiltrate. Likely infectious etiology. 3. Underlying morbid obesity. 4. Underlying chronic obstructive pulmonary disease, unknown FEV1. Plan . 1. Continue with present oxygen to keep saturations 92% and above and gradual wean. 2. Continue DuoNebs. 3. steroid inhaler. 4. oral prednisone. 5. Continue Levaquin. 6. Weight loss is advised. 7. clinically better FRANCE CHRISTINA MD Jan 22, 2019 11:40
[2019-01-22] MEDS ORDERED: FUROSEMIDE 40 MG/4 ML VIAL. IVP ONE (12:30)
--- NOTE | 2019-01-22 12:52 | EKG ---
[facility] [address] [place] [address] Test Date: 2019-01-22 Test Time: 12:43:37 Pat Name: JEANNIE TAPIA Department: Room: 8 1 Gender: F Outpatient Interviewing Clerk: : 1955 Requested By: BERRY JOSE Order Number: [id number] Reading MD: Measurements Intervals [place] Rate: 99 P: 22 MN: 130 QRS: 44 QRSD: 84 T: 49 QT: 328 QTc: 426 Interpretive Statements SINUS RHYTHM VENTRICULAR PREMATURE COMPLEX(ES) ABNORMAL ECG RI6.01 Compared to ECG 06/15/2017 16:52:32 Sinus tachycardia no longer present
[2019-01-22 13:05] LABS: BASE EXCESS COOX 2 mmol/L (-3-3); HCO3 COOX 28 mmol/L (21-28); METHEMOGLOBIN 0.2 % (0.0-1.9); OXYHEMOGLOBIN 97.2 %; PCO2 COOX 46 mmHg (35-46); PO2 COOX 119 mmHg (65-108); SAT O2 COOX 98 % (92-99)
[2019-01-22 15:00] VITALS: BP 123/79
--- NOTE | 2019-01-22 16:45 | CARD ---
MR#: [id number] Date of Study: 01/22/2019 Ordering Physician: BERRY JOSE, Referring Physician: BERRY JOSE, Tech: Mallory Sanchez RDCS APPROVED REPORT EXAM: Two-dimensional and M-mode echocardiogram with Doppler and color Doppler. Other Information Quality : Good INDICATION Congestive Heart Failure 2D DIMENSIONS RVDd2.5 (2.9-3.5cm)Left Atrium(2D)3.2 (1.6-4.0cm) IVSd1.0 (0.7-1.1cm)Aortic Root(2D)2.6 (2.0-3.7cm) LVDd4.7 (3.9-5.9cm)LVOT Diameter1.9 (1.8-2.4cm) PWd0.9 (0.7-1.1cm)LVDs2.7 (2.5-4.0cm) FS (%) 30.0 %SV74.7 ml LVEF(%)60.0 (>50%) Aortic Valve AoV Peak Justin.118.7cm/sAoV VTI14.8cm AO Peak GR.5.6mmHgLVOT Peak Justin.114.3cm/s AO Mean GR.3mmHgAVA (VMAX)2.61cm2 LAMINE (VTI)3.30cm2 Mitral Valve MV E Akqayntk62.7cm/sMV DECEL HEKJ684pt MV A Qnnuyqnx234.0cm/sE/A Ratio0.8 Pulmonary Vein S1 Xgnsnmvq41.1cm/sD2 Vsajjxhl68.3cm/s LEFT VENTRICLE The left ventricle is normal size. There is borderline to mild concentric left ventricular hypertroph y. The left ventricular systolic function is normal and the ejection fraction is within normal range. The Ejection Fraction is 55-60%. There is normal LV segmental wall motion. Transmitral Doppler flow pattern is Grade I-abnormal relaxation pattern. RIGHT VENTRICLE The right ventricle is normal size. The right ventricular systolic function is normal. ATRIA The left atrium size is normal. The right atrium size is normal. The interatrial septum is intact wit h no evidence for an atrial septal defect or patent foramen ovale as noted on 2-D or Doppler imaging. AORTIC VALVE The aortic valve is normal in structure and function. Doppler and Color Flow revealed no significant aortic regurgitation. There is no significant aortic valvular stenosis. MITRAL VALVE The mitral valve is normal in structure and function. There is no evidence of mitral valve prolapse. There is no mitral valve stenosis. Doppler and Color Flow revealed no mitral valve regurgitation note d. TRICUSPID VALVE The tricuspid valve is normal in structure and function. Doppler and Color Flow revealed trace tricus pid valve regurgitation. There is no tricuspid valve stenosis. PULMONIC VALVE The pulmonic valve is not well visualized. Doppler and Color Flow revealed trace pulmonic valvular re gurgitation. There is no pulmonic valvular stenosis. GREAT VESSELS The aortic root is normal in size. The ascending aorta is mildly dilated at 3.4 cm. The IVC is normal in size and collapses >50% with inspiration. PERICARDIAL EFFUSION There is no evidence of significant pericardial effusion. Critical Notification Critical Value: No <Conclusion> The left ventricle is normal size. The left ventricular systolic function is normal and the ejection fraction is within normal range. The Ejection Fraction is 55-60%. There is borderline to mild concentric left ventricular hypertrophy. Doppler and Color Flow revealed no significant aortic regurgitation. There is no significant aortic valvular stenosis. Doppler and Color Flow revealed no mitral valve regurgitation noted. Doppler and Color Flow revealed trace tricuspid valve regurgitation. The ascending aorta is mildly dilated at 3.4 cm. Signed by : Sean Christianson MD Electronically Approved : 01/22/2019 16:45:31
--- NOTE | 2019-01-22 17:28 | RAD ---
CHEST AP ONLY Clinical indications: Pneumonia. Follow study. COMPARISON: January 19, 2019. Findings/ impression: Again seen is left lung base infiltrate or atelectasis which has improved. Right lung base infiltrate or atelectasis is stable. No pleural effusion or pneumothorax evident. Heart size and mediastinum are stable. Electronically signed by: Hair Lovelace MD (01/22/2019 5:25 PM) [place] [id number]
[2019-01-22 19:19] VITALS: BP 130/86
[2019-01-22 23:45] VITALS: BP 117/68
[2019-01-23 03:52] VITALS: BP 140/80
[2019-01-23] MEDS: methylPREDNISolone SOD SUCC PF 40 MG/ML VIAL. IV SCH ×2 (05:59→21:20)
[2019-01-23 07:00] VITALS: BP 129/85
[2019-01-23] MEDS: BUDESONIDE 0.5 MG/2 ML NEBU. NEB SCH ×2 (08:15→20:00)
[2019-01-23] MEDS: ALPRAZolam 1 MG TABLET PO SCH ×2 (08:21→21:22)
[2019-01-23] MEDS: MONTELUKAST SODIUM 10 MG TABLET. PO SCH (08:21)
[2019-01-23] MEDS: metFORMIN 500 MG TABLET PO SCH ×2 (08:21→17:15)
[2019-01-23] MEDS: FUROSEMIDE 20 MG TABLET PO SCH (08:21)
[2019-01-23] MEDS: PANTOPRAZOLE 40 MG TABLET.DR. PO SCH (08:21)
[2019-01-23] MEDS: CETIRIZINE HCL 10 MG TABLET. PO SCH (08:22)
[2019-01-23] MEDS: PHENYTOIN SODIUM EXTENDED 100 MG CAPSULE PO SCH (08:22)
[2019-01-23] MEDS: LACTOBACILLUS RHAMNOSUS GG 1 CAPSULE. PO SCH ×2 (08:22→21:20)
[2019-01-23] MEDS: ENOXAPARIN 40 MG/0.4 ML SYRINGE. SQ SCH (08:23)
--- NOTE | 2019-01-23 09:05 | PDOC ---
PULMONARY PROGRESS NOTES Subjective feels better sob cough better on home 02 2 lpm Vitals Vital Signs Date Time Temp Pulse Resp B/P (MAP) Pulse Ox O2 Delivery O2 Flow Rate FiO2 01/23/19 07:00 98.3 89 16 129/85 (100) 92 Nasal Cannula 3.5 98.3 General: Alert, No acute distress Lungs: Crackles Cardiovascular: S1, S2 Abdomen: Soft, Non-tender Extremities: No Edema Skin: Warm Labs Laboratory Tests Test 01/21/19 21:37 01/22/19 04:30 01/22/19 07:50 01/22/19 12:18 Glucose (Fingerstick) 229 mg/dL (70-99) 101 mg/dL (70-99) Sodium Level 140 mmol/L (136-145) Potassium Level 4.5 mmol/L (3.5-5.1) Chloride Level 103 mmol/L (98-107) Carbon Dioxide Level 26 mmol/L (21-32) Anion Gap 11 (6-14) Blood Urea Nitrogen 17 mg/dL (7-20) Creatinine 0.9 mg/dL (0.6-1.0) Estimated GFR (Cockcroft-Gault) 76.5 Glucose Level 185 mg/dL (70-99) Calcium Level 9.3 mg/dL (8.5-10.1) PR-Tec-U-Type Natriuretic Peptide 31 pg/mL (0-124) O2 Saturation 98 % (92-99) Arterial Blood pH 7.40 (7.35-7.45) Arterial Blood pCO2 at Patient Temp 46 mmHg (35-46) Arterial Blood pO2 at Patient Temp 119 mmHg (65-108) Arterial Blood HCO3 28 mmol/L (21-28) Arterial Blood Base Excess 2 mmol/L (-3-3) Oxyhemoglobin 97.2 % Methemoglobin 0.2 % (0.0-1.9) Carbon Monoxide, Quantitative 0.5 % (0.0-1.9) FiO2 32 Test 01/22/19 19:55 01/23/19 07:55 Glucose (Fingerstick) 251 mg/dL (70-99) 142 mg/dL (70-99) Laboratory Tests Test 01/22/19 12:18 01/22/19 19:55 01/23/19 07:55 O2 Saturation 98 % (92-99) Arterial Blood pH 7.40 (7.35-7.45) Arterial Blood pCO2 at Patient Temp 46 mmHg (35-46) Arterial Blood pO2 at Patient Temp 119 mmHg (65-108) Arterial Blood HCO3 28 mmol/L (21-28) Arterial Blood Base Excess 2 mmol/L (-3-3) Oxyhemoglobin 97.2 % Methemoglobin 0.2 % (0.0-1.9) Carbon Monoxide, Quantitative 0.5 % (0.0-1.9) FiO2 32 Glucose (Fingerstick) 251 mg/dL (70-99) 142 mg/dL (70-99) Medications Active Scripts Medications Dose Route/Sig Max Daily Dose Days Date Category Dose Instructions Metformin Hcl 500 Mg Tablet 500 Mg PO BIDWMEALS 01/20/19 Reported Azithromycin Tablet (Azithromycin) 250 Mg Tablet 250 Mg PO 06/14/17 Reported PT STATED THAT SHE HAS BEEN TAKING ABX FOR THREE DAYS, UNABLE TO STATE HOW MANY TIME PER DAY OR WHY SHE IS TAKING IT Dilantin (Phenytoin Sodium Extended) 100 Mg Capsule 1 Cap PO DAILY 06/14/17 Reported Combivent Respimat Inhal (Ipratropium/Albuterol Sulfate) 4 Gm Aer.w.adap 4 Gm INH 06/14/17 Reported Advair 500-50 Diskus (Fluticasone/Salmeterol) 1 Each Disk.w.dev 1 Each INH BID 06/14/17 Reported Proair Hfa (Albuterol Sulfate) 8.5 Gm Hfa.aer.ad 8.5 Gm INH PRN 06/14/17 Reported Protonix (Pantoprazole Sodium) 20 Mg Tablet.dr 40 Mg PO DAILY 06/14/17 Reported Oxycontin (Oxycodone HCl) 80 Mg Tab.er.12h 80 Mg PO BID 06/14/17 Reported Loratadine 10 Mg Tablet 10 Mg PO DAILY 06/14/17 Reported Oxycodone-Acetaminophen 5-325 (Oxycodone Hcl/Acetaminophen) 1 Each Tablet 1 Tab PO Q4HRS PRN 06/14/17 Reported Alprazolam 1 Mg Tablet 1 Mg PO BID 06/14/17 Reported Furosemide 20 Mg Tablet 20 Mg PO DAILY 06/14/17 Reported Montelukast Sodium Tablet (Montelukast Sodium) 10 Mg Tablet 10 Mg PO DAILY 06/14/17 Reported Omeprazole 40 Mg Capsule.dr 40 Mg PO DAILY 06/14/17 Reported Impression . 1. Acute on chronic hypoxic respiratory failure secondary to acute exacerbation of chronic obstructive pulmonary disease and likely viral basal pneumonia. The patient was exposed to respiratory syncytial virus infection from grand child 2. Abnormal CT chest with some basal atelectasis versus infiltrate. Likely infectious etiology. 3. Underlying morbid obesity. 4. Underlying chronic obstructive pulmonary disease, unknown FEV1. Plan . 1. Continue with present oxygen to keep saturations 92% and above and gradual wean. 2. Continue DuoNebs. 3. steroid inhaler. 4. solumedrol to q 12 5. Continue Levaquin. 6. Weight loss is advised. 7. clinically better discussed w GINNY Chaparro MD Jan 23, 2019 09:05
--- NOTE | 2019-01-23 09:50 | PDOC ---
PROGRESS NOTES History of Present Illness History of Present Illness VTE Prophylaxis Ordered VTE Prophylaxis Devices: No VTE Pharmacological Prophylaxi: Yes Assessment/Plan Assessment/Plan IMPRESSION: 1. Acute on chronic hypoxic respiratory failure secondary to acute exacerbation WITH RESP FAILURE, EXAC of chronic obstructive pulmonary disease and likely viral basal pneumonia. 2. No acute pulmonary embolism is identified.ON CTA 3. At the right more so than left lung bases, mostly linear opacities are identified that are suggestive of atelectasis but could potentially represent an infectious process in the appropriate clinic setting. 4. few millimetric pulmonary nodules are noted. These do not meet size criteria for dedicated follow-up however given the appearance of the lungs and presumed risk factors for lung malignancy, optional CT follow-up in 12 months could be considered. 5. MORBID OBESITY 6. Moderate pulmonary HTN 7. RIGHT SHOULDER PAIN ON X-RAY There is no evidence for acute fracture or dislocation. AC joint is congruent. Humeral head is not high riding. 8. ATYPICAL CHEST PAIN 9. Doppler and Color Flow revealed mild to moderate tricuspid regurgitation. Doppler and Color Flow revealed moderate pulmonary hypertension. 01/22 more soa, tachy PLAN ADMIT EMPERIC IV ANTIBIOTICS PULM CONSULT IV STEROID TAPER DVT PROPHYLAXIS PAIN CONTROL cxr today echo cardiology consult 39 MIN PT EXAM, CHART REVIEW, > 50% OF TIME SPENT WITH EXAM, CHART REVIEW, PT CARE COORDINATION Vitals Vitals Vital Signs Date Time Temp Pulse Resp B/P (MAP) Pulse Ox O2 Delivery O2 Flow Rate FiO2 01/23/19 09:01 97 Nasal Cannula 4.0 01/23/19 07:00 98.3 89 16 129/85 (100) 98.3 Physical Exam Physical Exam Neck: Normal range of motion, no tenderness, supple, no stridor. [] Cardiovascular:Heart rate regular rhythm, no murmur [] Lungs & Thorax: Bilateral crackles [] Abdomen: Bowel sounds normal, soft, no tenderness, no masses, no pulsatile masses. [] Skin: Warm, dry, no erythema, no rash. [] Back: No tenderness, no CVA tenderness. [] Extremities: No tenderness, no cyanosis, no clubbing, ROM intact, no edema. [] Neurologic: Alert and oriented X 3, normal motor function, normal sensory function, no focal deficits noted. [] Psychologic: Affect normal, judgment normal, mood normal. [] General: Alert, Oriented X3, Cooperative HEENT: Atraumatic Breasts: Not examined Abdomen: Soft Rectal Exam: not examined Extremities: No cyanosis Neuro: Normal speech, Strength at 5/5 X4 ext, Cranial nerves 3-12 NL Psych/Mental Status: Mental status NL, Mood NL General: Alert, Oriented X3, Cooperative, No acute distress, mild distress Heart: Regular rate (SR no ectopies), Normal S1, Normal S2, Other (3/6 systolic murmur to LLS border) Lungs: Crackles Abdomen: Normal bowel sounds, Soft Extremities: No cyanosis Skin: No breakdown Labs LABS SPEC #: [id number] FLORENCIA: 01/19/19 STATUS: RES REQ #: [id number] RECD: 01/19/[address]: REJI CLAUDIO MD SOURCE: BLOOD ENTR: 01/19/19 [facility] DR: SALLY MUNOZ MD SPDC: ORDERED: BCULT Procedure Result BLOOD CULTURE Preliminary NO GROWTH AFTER 3 DAYS CHEST AP ONLY Clinical indications: Pneumonia. Follow study. COMPARISON: January 19, 2019. Findings/ impression: Again seen is left lung base infiltrate or atelectasis which has improved. Right lung base infiltrate or atelectasis is stable. No pleural effusion or pneumothorax evident. Heart size and mediastinum are stable. Electronically signed by: Dayana Lovelace MD (01/22/2019 5:25 PM) [place] [id number] DICTATED and SIGNED BY: DAYANA LOVELACE MD DATE: 01/22/191724 Laboratory Tests Test 01/22/19 12:18 01/22/19 19:55 01/23/19 07:55 O2 Saturation 98 % (92-99) Arterial Blood pH 7.40 (7.35-7.45) Arterial Blood pCO2 at Patient Temp 46 mmHg (35-46) Arterial Blood pO2 at Patient Temp 119 mmHg (65-108) Arterial Blood HCO3 28 mmol/L (21-28) Arterial Blood Base Excess 2 mmol/L (-3-3) Oxyhemoglobin 97.2 % Methemoglobin 0.2 % (0.0-1.9) Carbon Monoxide, Quantitative 0.5 % (0.0-1.9) FiO2 32 Glucose (Fingerstick) 251 mg/dL (70-99) 142 mg/dL (70-99) Assessment and Plan Assessmemt and Plan Problems Medical Problems: (1) Hypoxia Status: Acute (2) Insufficiency, respiratory, acute Status: Acute (3) PNA (pneumonia) Status: Acute Comment Review of Relevant I have reviewed the following items santino (where applicable) has been applied. Labs Laboratory Tests Test 01/21/19 21:37 01/22/19 04:30 01/22/19 07:50 01/22/19 12:18 Glucose (Fingerstick) 229 mg/dL (70-99) 101 mg/dL (70-99) Sodium Level 140 mmol/L (136-145) Potassium Level 4.5 mmol/L (3.5-5.1) Chloride Level 103 mmol/L (98-107) Carbon Dioxide Level 26 mmol/L (21-32) Anion Gap 11 (6-14) Blood Urea Nitrogen 17 mg/dL (7-20) Creatinine 0.9 mg/dL (0.6-1.0) Estimated GFR (Cockcroft-Gault) 76.5 Glucose Level 185 mg/dL (70-99) Calcium Level 9.3 mg/dL (8.5-10.1) JX-Aod-C-Type Natriuretic Peptide 31 pg/mL (0-124) O2 Saturation 98 % (92-99) Arterial Blood pH 7.40 (7.35-7.45) Arterial Blood pCO2 at Patient Temp 46 mmHg (35-46) Arterial Blood pO2 at Patient Temp 119 mmHg (65-108) Arterial Blood HCO3 28 mmol/L (21-28) Arterial Blood Base Excess 2 mmol/L (-3-3) Oxyhemoglobin 97.2 % Methemoglobin 0.2 % (0.0-1.9) Carbon Monoxide, Quantitative 0.5 % (0.0-1.9) FiO2 32 Test 01/22/19 19:55 01/23/19 07:55 Glucose (Fingerstick) 251 mg/dL (70-99) 142 mg/dL (70-99) Laboratory Tests Test 01/22/19 12:18 01/22/19 19:55 01/23/19 07:55 O2 Saturation 98 % (92-99) Arterial Blood pH 7.40 (7.35-7.45) Arterial Blood pCO2 at Patient Temp 46 mmHg (35-46) Arterial Blood pO2 at Patient Temp 119 mmHg (65-108) Arterial Blood HCO3 28 mmol/L (21-28) Arterial Blood Base Excess 2 mmol/L (-3-3) Oxyhemoglobin 97.2 % Methemoglobin 0.2 % (0.0-1.9) Carbon Monoxide, Quantitative 0.5 % (0.0-1.9) FiO2 32 Glucose (Fingerstick) 251 mg/dL (70-99) 142 mg/dL (70-99) Microbiology 01/19/19 Blood Culture - Preliminary, Resulted NO GROWTH AFTER 3 DAYS Medications Current Medications Albuterol/ Ipratropium (Duoneb) 3 ml 1X ONCE NEB Last administered on 01/19/19at 19:30; Start 01/19/19 at 19:30; Stop 01/19/19 at 19:31; Status DC Iohexol (Omnipaque 350 Mg/ml) 100 ml 1X ONCE IV Last administered on 01/19/19at 21:30; Start 01/19/19 at 21:30; Stop 01/19/19 at 21:31; Status DC Info (CONTRAST GIVEN -- Rx MONITORING) 1 each PRN DAILY PRN MC SEE COMMENTS; Start 01/19/19 at 21:00; Stop 01/21/19 at 20:59; Status DC Ondansetron HCl (Zofran) 4 mg PRN Q8HRS PRN IV NAUSEA/VOMITING 1ST CHOICE; Start 01/20/19 at 00:45; Stop 01/21/19 at 00:44; Status DC Albuterol/ Ipratropium (Duoneb) 3 ml RTQID NEB Last administered on 01/20/19at 20:23; Start 01/20/19 at 08:00; Stop 01/21/19 at 07:59; Status DC Levofloxacin/ Dextrose 150 ml @ 100 mls/hr 1X ONCE IV Last administered on 01/20/19at 01:05; Start 01/20/19 at 01:00; Stop 01/20/19 at 02:29; Status DC Methylprednisolone Sodium Succinate (SOLU-Medrol 40MG VIAL) 40 mg Q8HRS IV Last administered on 01/23/19at 05:59; Start 01/20/19 at 14:00; Stop 01/23/19 at 09:05; Status DC Levofloxacin/ Dextrose 100 ml @ 100 mls/hr Q24H IV Last administered on 1 03/23/18at 20:49; Start 01/20/19 at 21:00; Stop 01/22/19 at 14:31; Status DC Budesonide (Pulmicort) 0.5 mg RTBID NEB Last administered on 01/23/19at 08:15; Start 01/20/19 at 20:00 Albuterol Sulfate (Ventolin Neb Soln) 2.5 mg Q4HRS W/A PRN INH SHORTNESS OF BREATH Last administered on 01/22/19at 07:20; Start 01/20/19 at 16:30 Alprazolam (Xanax) 1 mg BID PO Last administered on 01/23/19at 08:21; Start 01/20/19 at 21:00 Furosemide (Lasix) 20 mg DAILY PO Last administered on 01/23/19at 08:21; Start 01/21/19 at 09:00 Metformin HCl (Glucophage) 500 mg BIDWMEALS PO Last administered on 01/23/19at 08:21; Start 01/22/19 at 08:00 Montelukast Sodium (Singulair) 10 mg DAILY PO Last administered on 01/23/19 08:21; Start 01/21/19 at 09:00 Oxycodone/ Acetaminophen (Percocet 5/325) 1 tab Q4HRS PRN PO PAIN; Start 01/20/19 at 16:30 Phenytoin Sodium (Dilantin) 100 mg DAILY PO Last administered on 01/23/19at 08:22; Start 01/21/19 at 09:00 Non-Formulary Medication (Fluticasone/ Salmeterol (Advair 500-50 Diskus)) 1 each BID INH ; Start 01/20/19 at 21:00; Status UNV Cetirizine HCl (ZyrTEC) 10 mg DAILY PO Last administered on 01/23/19 08:22; Start 01/21/19 at 09:00 Pantoprazole Sodium (Protonix) 40 mg DAILYAC PO Last administered on 01/23/19at 08:21; Start 01/21/19 at 07:30 Oxycodone HCl (OxyCONTIN) 80 mg Q12HR PO Last administered on 01/22/19at 21:27; Start 01/20/19 at 21:00 Non-Formulary Medication (Pantoprazole Sodium (Protonix)) 40 mg DAILY PO ; Start 01/21/19 at 09:00; Status UNV Sodium Chloride (Normal Saline Flush) 3 ml QSHIFT PRN IV AFTER MEDS AND BLOOD DRAWS; Start 01/20/19 at 16:45 Ondansetron HCl (Zofran) 4 mg PRN Q4HRS PRN IV NAUSEA/VOMITING; Start 01/20/19 at 16:45 Acetaminophen (Tylenol) 650 mg PRN Q4HRS PRN PO TEMP OVER 100.4F OR MILD PAIN; Start 01/20/19 at 16:45 Al Hydroxide/Mg Hydroxide (Mylanta Plus Xs) 30 ml PRN DAILY PRN PO HEARTBURN / GAS; Start 01/20/19 at 16:45 Clonidine HCl (Catapres) 0.1 mg PRN Q6HRS PRN PO SBP>160 OR DBP>90; Start 01/20/19 at 16:45 Docusate Sodium (Colace) 100 mg PRN BID PRN PO CONSTIPATION; Start 01/20/19 at 16:45 Guaifenesin (Robitussin) 200 mg PRN Q4HRS PRN PO COUGH Last administered on 01/21/19at 13:54; Start 01/20/19 at 16:45 Lorazepam (Ativan) 0.5 mg PRN Q4HRS PRN PO ANXIETY / AGITATION; Start 01/20/19 at 16:45 Enoxaparin Sodium (Lovenox 40mg Syringe) 40 mg DAILY SQ Last administered on 01/23/19at 08:23; Start 01/21/19 at 09:00 Lactobacillus Rhamnosus (Culturelle) 1 cap BID PO Last administered on 01/23/19at 08:22; Start 01/21/19 at 21:00 Levofloxacin (Levaquin) 500 mg DAILY06 PO Last administered on 01/23/19at 05:59; Start 01/21/19 at 23:00 Furosemide (Lasix) 40 mg 1X ONCE IVP Last administered on 01/22/19at 14:47; Start 01/22/19 at 12:30; Stop 01/22/19 at 12:31; Status DC Methylprednisolone Sodium Succinate (SOLU-Medrol 40MG VIAL) 40 mg Q12HR IV ; Start 01/23/19 at 21:00 Active Scripts Active Reported Metformin Hcl 500 Mg Tablet 500 Mg PO BIDWMEALS Azithromycin Tablet (Azithromycin) 250 Mg Tablet 250 Mg PO PT STATED THAT SHE HAS BEEN TAKING ABX FOR THREE DAYS, UNABLE TO STATE HOW MANY TIME PER DAY OR WHY SHE IS TAKING IT Dilantin (Phenytoin Sodium Extended) 100 Mg Capsule 1 Cap PO DAILY Combivent Respimat Inhal (Ipratropium/Albuterol Sulfate) 4 Gm Aer.w.adap 4 Gm INH Advair 500-50 Diskus (Fluticasone/Salmeterol) 1 Each Disk.w.dev 1 Each INH BID Proair Hfa (Albuterol Sulfate) 8.5 Gm Hfa.aer.ad 8.5 Gm INH PRN Protonix (Pantoprazole Sodium) 20 Mg Tablet.dr 40 Mg PO DAILY Oxycontin (Oxycodone HCl) 80 Mg Tab.er.12h 80 Mg PO BID Loratadine 10 Mg Tablet 10 Mg PO DAILY Oxycodone-Acetaminophen 5-325 (Oxycodone Hcl/Acetaminophen) 1 Each Tablet 1 Tab PO Q4HRS PRN Alprazolam 1 Mg Tablet 1 Mg PO BID Furosemide 20 Mg Tablet 20 Mg PO DAILY Montelukast Sodium Tablet (Montelukast Sodium) 10 Mg Tablet 10 Mg PO DAILY Omeprazole 40 Mg Capsule.dr 40 Mg PO DAILY Vitals/I & O Vital Sign - Last 24 Hours 01/22/19 01/22/19 01/22/19 01/22/19 11:00 13:00 15:00 19:19 Temp 97.5 97.9 98.2 97.5 97.9 98.2 Pulse 95 109 108 Resp 20 20 18 B/P (MAP) 125/72 (89) 123/79 (94) 130/86 (101) Pulse Ox 95 91 94 O2 Delivery Nasal Cannula Nasal Cannula Nasal Cannula Nasal Cannula O2 Flow Rate 4.0 2.0 4.0 4.0 01/22/19 01/22/19 01/22/19 01/22/19 20:04 20:10 21:27 23:45 Temp 98.0 98.0 Pulse 97 Resp 18 20 B/P (MAP) 117/68 (84) Pulse Ox 95 95 92 O2 Delivery Nasal Cannula Nasal Cannula Nasal Cannula O2 Flow Rate 4.0 2.0 2.0 4.0 01/23/19 01/23/19 01/23/19 01/23/19 01:20 03:52 07:00 09:01 Temp 98.5 98.3 98.5 98.3 Pulse 90 89 Resp 20 16 B/P (MAP) 140/80 (100) 129/85 (100) Pulse Ox 92 94 92 97 O2 Delivery Nasal Cannula Nasal Cannula Nasal Cannula Nasal Cannula O2 Flow Rate 2.0 4.0 3.5 4.0 Intake and Output 01/22/19 01/22/19 01/23/19 15:00 23:00 07:00 Intake Total 200 ml 240 ml Balance 200 ml 240 ml BERRY JOSE MD Jan 23, 2019 09:49
[2019-01-23] MEDS: oxyCODONE ER 40 MG TAB.ER.12H PO SCH ×2 (10:05→21:22)
[2019-01-23 11:00] VITALS: BP 122/72
[2019-01-23] MEDS: guaiFENesin DM 600/30MG 1 TAB TAB.ER.12H PO SCH ×2 (12:29→21:00)
[2019-01-23 15:00] VITALS: BP 112/69
[2019-01-23 19:00] VITALS: BP 135/86
[2019-01-23 23:00] VITALS: BP 126/86
[2019-01-24 03:00] VITALS: BP 141/87
[2019-01-24 05:14] LABS: BASO % 0 % (0-3); EOS % 0 % (0-3); HEMOGLOBIN 12.9 g/dL (12.0-15.5); LYMPH # 1.1 x10^3/uL (1.0-4.8); LYMPH % 12 % (24-48); MEAN CORPUSCULAR HEMOGLOBIN 29 pg (25-35); MEAN CORPUSCULAR HGB CONC 32 g/dL (31-37); MEAN CORPUSCULAR VOLUME 90 fL (79-100); MONO # 0.5 x10^3/uL (0.0-1.1); MONO % 6 % (0-9); NEUT # 7.5 x10^3/uL (1.8-7.7); NEUT % 82 % (31-73); PLATELET COUNT 226 x10^3/uL (140-400); RED BLOOD COUNT 4.43 x10^6/uL (3.50-5.40); RED CELL DISTRIBUTION WIDTH 15.2 % (11.5-14.5); WHITE BLOOD COUNT 9.1 x10^3/uL (4.0-11.0)
[2019-01-24 05:34] LABS: CALCIUM 8.5 mg/dL (8.5-10.1); GFR 67.8; POTASSIUM 4.3 mmol/L (3.5-5.1)
[2019-01-24] MEDS ORDERED: DEXTROSE 50% 25 GM / 50ML DISP.SYRIN. IV PRN (06:45)
[2019-01-24] MEDS ORDERED: IV DEXTROSE 5% 250 ML BAG. IV PRN (06:45)
[2019-01-24 07:00] VITALS: BP 148/82
[2019-01-24] MEDS: BUDESONIDE 0.5 MG/2 ML NEBU. NEB SCH ×2 (08:00→19:56)
[2019-01-24] MEDS: metFORMIN 500 MG TABLET PO SCH ×2 (08:26→16:38)
[2019-01-24] MEDS: FUROSEMIDE 20 MG TABLET PO SCH (08:26)
[2019-01-24] MEDS: CETIRIZINE HCL 10 MG TABLET. PO SCH (08:26)
[2019-01-24] MEDS: PANTOPRAZOLE 40 MG TABLET.DR. PO SCH (08:26)
[2019-01-24] MEDS: LACTOBACILLUS RHAMNOSUS GG 1 CAPSULE. PO SCH ×2 (08:26→20:43)
[2019-01-24] MEDS: ALPRAZolam 1 MG TABLET PO SCH ×2 (08:26→20:43)
[2019-01-24] MEDS: PHENYTOIN SODIUM EXTENDED 100 MG CAPSULE PO SCH (08:27)
[2019-01-24] MEDS: ENOXAPARIN 40 MG/0.4 ML SYRINGE. SQ SCH (08:27)
[2019-01-24] MEDS: MONTELUKAST SODIUM 10 MG TABLET. PO SCH (08:27)
[2019-01-24] MEDS: methylPREDNISolone SOD SUCC PF 40 MG/ML VIAL. IV SCH (08:28)
[2019-01-24] MEDS: INSULIN LISPRO 300 UNITS/3 ML VIAL. SQ SCH ×3 (08:36→17:50)
[2019-01-24] MEDS: guaiFENesin DM 600/30MG 1 TAB TAB.ER.12H PO SCH ×2 (08:36→20:45)
--- NOTE | 2019-01-24 09:25 | PDOC ---
PULMONARY PROGRESS NOTES Subjective feels better sob better, has cough. on home 02 2 lpm Vitals Vital Signs Date Time Temp Pulse Resp B/P (MAP) Pulse Ox O2 Delivery O2 Flow Rate FiO2 01/24/19 08:52 96 Nasal Cannula 4.0 01/24/19 07:00 98.3 78 16 148/82 (104) 98.3 ROS: No Nausea General: Alert, No acute distress Lungs: Crackles Cardiovascular: S1, S2 Abdomen: Soft, Non-tender Extremities: No Edema Skin: Warm Labs Laboratory Tests Test 01/22/19 12:18 01/22/19 19:55 01/23/19 07:55 01/23/19 20:46 O2 Saturation 98 % (92-99) Arterial Blood pH 7.40 (7.35-7.45) Arterial Blood pCO2 at Patient Temp 46 mmHg (35-46) Arterial Blood pO2 at Patient Temp 119 mmHg (65-108) Arterial Blood HCO3 28 mmol/L (21-28) Arterial Blood Base Excess 2 mmol/L (-3-3) Oxyhemoglobin 97.2 % Methemoglobin 0.2 % (0.0-1.9) Carbon Monoxide, Quantitative 0.5 % (0.0-1.9) FiO2 32 Glucose (Fingerstick) 251 mg/dL (70-99) 142 mg/dL (70-99) 200 mg/dL (70-99) Test 01/24/19 04:15 01/24/19 06:21 01/24/19 07:31 White Blood Count 9.1 x10^3/uL (4.0-11.0) Red Blood Count 4.43 x10^6/uL (3.50-5.40) Hemoglobin 12.9 g/dL (12.0-15.5) Hematocrit 40.0 % (36.0-47.0) Mean Corpuscular Volume 90 fL (79-100) Mean Corpuscular Hemoglobin 29 pg (25-35) Mean Corpuscular Hemoglobin Concent 32 g/dL (31-37) Red Cell Distribution Width 15.2 % (11.5-14.5) Platelet Count 226 x10^3/uL (140-400) Neutrophils (%) (Auto) 82 % (31-73) Lymphocytes (%) (Auto) 12 % (24-48) Monocytes (%) (Auto) 6 % (0-9) Eosinophils (%) (Auto) 0 % (0-3) Basophils (%) (Auto) 0 % (0-3) Neutrophils # (Auto) 7.5 x10^3/uL (1.8-7.7) Lymphocytes # (Auto) 1.1 x10^3/uL (1.0-4.8) Monocytes # (Auto) 0.5 x10^3/uL (0.0-1.1) Eosinophils # (Auto) 0.0 x10^3/uL (0.0-0.7) Basophils # (Auto) 0.0 x10^3/uL (0.0-0.2) Sodium Level 139 mmol/L (136-145) Potassium Level 4.3 mmol/L (3.5-5.1) Chloride Level 102 mmol/L (98-107) Carbon Dioxide Level 30 mmol/L (21-32) Anion Gap 7 (6-14) Blood Urea Nitrogen 19 mg/dL (7-20) Creatinine 1.0 mg/dL (0.6-1.0) Estimated GFR (Cockcroft-Gault) 67.8 Glucose Level 276 mg/dL (70-99) Calcium Level 8.5 mg/dL (8.5-10.1) Glucose (Fingerstick) 232 mg/dL (70-99) 233 mg/dL (70-99) Laboratory Tests Test 01/23/19 20:46 01/24/19 04:15 01/24/19 06:21 01/24/19 07:31 Glucose (Fingerstick) 200 mg/dL (70-99) 232 mg/dL (70-99) 233 mg/dL (70-99) White Blood Count 9.1 x10^3/uL (4.0-11.0) Red Blood Count 4.43 x10^6/uL (3.50-5.40) Hemoglobin 12.9 g/dL (12.0-15.5) Hematocrit 40.0 % (36.0-47.0) Mean Corpuscular Volume 90 fL (79-100) Mean Corpuscular Hemoglobin 29 pg (25-35) Mean Corpuscular Hemoglobin Concent 32 g/dL (31-37) Red Cell Distribution Width 15.2 % (11.5-14.5) Platelet Count 226 x10^3/uL (140-400) Neutrophils (%) (Auto) 82 % (31-73) Lymphocytes (%) (Auto) 12 % (24-48) Monocytes (%) (Auto) 6 % (0-9) Eosinophils (%) (Auto) 0 % (0-3) Basophils (%) (Auto) 0 % (0-3) Neutrophils # (Auto) 7.5 x10^3/uL (1.8-7.7) Lymphocytes # (Auto) 1.1 x10^3/uL (1.0-4.8) Monocytes # (Auto) 0.5 x10^3/uL (0.0-1.1) Eosinophils # (Auto) 0.0 x10^3/uL (0.0-0.7) Basophils # (Auto) 0.0 x10^3/uL (0.0-0.2) Sodium Level 139 mmol/L (136-145) Potassium Level 4.3 mmol/L (3.5-5.1) Chloride Level 102 mmol/L (98-107) Carbon Dioxide Level 30 mmol/L (21-32) Anion Gap 7 (6-14) Blood Urea Nitrogen 19 mg/dL (7-20) Creatinine 1.0 mg/dL (0.6-1.0) Estimated GFR (Cockcroft-Gault) 67.8 Glucose Level 276 mg/dL (70-99) Calcium Level 8.5 mg/dL (8.5-10.1) Medications Active Scripts Medications Dose Route/Sig Max Daily Dose Days Date Category Dose Instructions Metformin Hcl 500 Mg Tablet 500 Mg PO BIDWMEALS 01/20/19 Reported Azithromycin Tablet (Azithromycin) 250 Mg Tablet 250 Mg PO 06/14/17 Reported PT STATED THAT SHE HAS BEEN TAKING ABX FOR THREE DAYS, UNABLE TO STATE HOW MANY TIME PER DAY OR WHY SHE IS TAKING IT Dilantin (Phenytoin Sodium Extended) 100 Mg Capsule 1 Cap PO DAILY 06/14/17 Reported Combivent Respimat Inhal (Ipratropium/Albuterol Sulfate) 4 Gm Aer.w.adap 4 Gm INH 06/14/17 Reported Advair 500-50 Diskus (Fluticasone/Salmeterol) 1 Each Disk.w.dev 1 Each INH BID 06/14/17 Reported Proair Hfa (Albuterol Sulfate) 8.5 Gm Hfa.aer.ad 8.5 Gm INH PRN 06/14/17 Reported Protonix (Pantoprazole Sodium) 20 Mg Tablet.dr 40 Mg PO DAILY 06/14/17 Reported Oxycontin (Oxycodone HCl) 80 Mg Tab.er.12h 80 Mg PO BID 06/14/17 Reported Loratadine 10 Mg Tablet 10 Mg PO DAILY 06/14/17 Reported Oxycodone-Acetaminophen 5-325 (Oxycodone Hcl/Acetaminophen) 1 Each Tablet 1 Tab PO Q4HRS PRN 06/14/17 Reported Alprazolam 1 Mg Tablet 1 Mg PO BID 06/14/17 Reported Furosemide 20 Mg Tablet 20 Mg PO DAILY 06/14/17 Reported Montelukast Sodium Tablet (Montelukast Sodium) 10 Mg Tablet 10 Mg PO DAILY 06/14/17 Reported Omeprazole 40 Mg Capsule.dr 40 Mg PO DAILY 06/14/17 Reported Impression . 1. Acute on chronic hypoxic respiratory failure secondary to acute exacerbation of chronic obstructive pulmonary disease and likely viral basal pneumonia. The patient was exposed to respiratory syncytial virus infection from grand child 2. Abnormal CT chest with some basal atelectasis versus infiltrate. Likely infectious etiology. 3. Underlying morbid obesity. 4. Underlying chronic obstructive pulmonary disease, unknown FEV1. Plan . 1. Continue with present oxygen to keep saturations 92% and above and gradual wean. 2. Continue DuoNebs. 3. steroid inhaler. 4. change solumedrol to prednisone 40 mg daily w taper by 10 mg q3d 5. Continue Levaquin. 6. Weight loss is advised. 7. clinically better discussed w pt GINNY ONEILL MD Jan 24, 2019 09:25
[2019-01-24] MEDS: oxyCODONE ER 40 MG TAB.ER.12H PO SCH ×2 (09:32→20:44)
[2019-01-24 11:00] VITALS: BP 127/86
--- NOTE | 2019-01-24 11:14 | PDOC ---
PROGRESS NOTES History of Present Illness History of Present Illness VTE Prophylaxis Ordered VTE Prophylaxis Devices: No VTE Pharmacological Prophylaxi: Yes Assessment/Plan Assessment/Plan IMPRESSION: 1. Acute on chronic hypoxic respiratory failure secondary to acute exacerbation WITH RESP FAILURE, EXAC of chronic obstructive pulmonary disease and likely viral basal pneumonia. 2. No acute pulmonary embolism is identified.ON CTA 3. At the right more so than left lung bases, mostly linear opacities are identified that are suggestive of atelectasis but could potentially represent an infectious process in the appropriate clinic setting. 4. few millimetric pulmonary nodules are noted. These do not meet size criteria for dedicated follow-up however given the appearance of the lungs and presumed risk factors for lung malignancy, optional CT follow-up in 12 months could be considered. 5. MORBID OBESITY 6. Moderate pulmonary HTN 7. RIGHT SHOULDER PAIN ON X-RAY There is no evidence for acute fracture or dislocation. AC joint is congruent. Humeral head is not high riding. 8. ATYPICAL CHEST PAIN 9. Doppler and Color Flow revealed mild to moderate tricuspid regurgitation. Doppler and Color Flow revealed moderate pulmonary hypertension. 01/22 more soa, tachy PLAN ADMIT EMPERIC IV ANTIBIOTICS PULM CONSULT IV STEROID TAPER DVT PROPHYLAXIS PAIN CONTROL cxr today echo cardiology consult 39 MIN PT EXAM, CHART REVIEW, > 50% OF TIME SPENT WITH EXAM, CHART REVIEW, PT CARE COORDINATION Vitals Vitals Vital Signs Date Time Temp Pulse Resp B/P (MAP) Pulse Ox O2 Delivery O2 Flow Rate FiO2 01/24/19 09:32 96 Nasal Cannula 4.0 01/24/19 07:00 98.3 78 16 148/82 (104) 98.3 Physical Exam Physical Exam Neck: Normal range of motion, no tenderness, supple, no stridor. [] Cardiovascular:Heart rate regular rhythm, no murmur [] Lungs & Thorax: Bilateral crackles [] Abdomen: Bowel sounds normal, soft, no tenderness, no masses, no pulsatile masses. [] Skin: Warm, dry, no erythema, no rash. [] Back: No tenderness, no CVA tenderness. [] Extremities: No tenderness, no cyanosis, no clubbing, ROM intact, no edema. [] Neurologic: Alert and oriented X 3, normal motor function, normal sensory function, no focal deficits noted. [] Psychologic: Affect normal, judgment normal, mood normal. [] General: Alert, Oriented X3, Cooperative HEENT: Atraumatic Breasts: Not examined Abdomen: Soft Rectal Exam: not examined Extremities: No cyanosis Neuro: Normal speech, Strength at 5/5 X4 ext, Cranial nerves 3-12 NL Psych/Mental Status: Mental status NL, Mood NL General: Alert, Oriented X3, Cooperative, No acute distress, mild distress Heart: Regular rate (SR no ectopies), Normal S1, Normal S2, Other (3/6 systolic murmur to LLS border) Lungs: Crackles Abdomen: Normal bowel sounds, Soft, No tenderness Extremities: No cyanosis Skin: No breakdown Labs LABS Clinical indications: Pneumonia. Follow study. COMPARISON: January 19, 2019. Findings/ impression: Again seen is left lung base infiltrate or atelectasis which has improved. Right lung base infiltrate or atelectasis is stable. No pleural effusion or pneumothorax evident. Heart size and mediastinum are stable. Electronically signed by: Dayana Lovelace MD (01/22/2019 5:25 PM) [place] [id number] DICTATED and SIGNED BY: DAYANA LOVELACE MD DATE: 01/22/191724 Laboratory Tests Test 01/23/19 20:46 01/24/19 04:15 01/24/19 06:21 01/24/19 07:31 Glucose (Fingerstick) 200 mg/dL (70-99) 232 mg/dL (70-99) 233 mg/dL (70-99) White Blood Count 9.1 x10^3/uL (4.0-11.0) Red Blood Count 4.43 x10^6/uL (3.50-5.40) Hemoglobin 12.9 g/dL (12.0-15.5) Hematocrit 40.0 % (36.0-47.0) Mean Corpuscular Volume 90 fL (79-100) Mean Corpuscular Hemoglobin 29 pg (25-35) Mean Corpuscular Hemoglobin Concent 32 g/dL (31-37) Red Cell Distribution Width 15.2 % (11.5-14.5) Platelet Count 226 x10^3/uL (140-400) Neutrophils (%) (Auto) 82 % (31-73) Lymphocytes (%) (Auto) 12 % (24-48) Monocytes (%) (Auto) 6 % (0-9) Eosinophils (%) (Auto) 0 % (0-3) Basophils (%) (Auto) 0 % (0-3) Neutrophils # (Auto) 7.5 x10^3/uL (1.8-7.7) Lymphocytes # (Auto) 1.1 x10^3/uL (1.0-4.8) Monocytes # (Auto) 0.5 x10^3/uL (0.0-1.1) Eosinophils # (Auto) 0.0 x10^3/uL (0.0-0.7) Basophils # (Auto) 0.0 x10^3/uL (0.0-0.2) Sodium Level 139 mmol/L (136-145) Potassium Level 4.3 mmol/L (3.5-5.1) Chloride Level 102 mmol/L (98-107) Carbon Dioxide Level 30 mmol/L (21-32) Anion Gap 7 (6-14) Blood Urea Nitrogen 19 mg/dL (7-20) Creatinine 1.0 mg/dL (0.6-1.0) Estimated GFR (Cockcroft-Gault) 67.8 Glucose Level 276 mg/dL (70-99) Calcium Level 8.5 mg/dL (8.5-10.1) Assessment and Plan Assessmemt and Plan Problems Medical Problems: (1) Hypoxia Status: Acute (2) Insufficiency, respiratory, acute Status: Acute (3) PNA (pneumonia) Status: Acute Comment Review of Relevant I have reviewed the following items santino (where applicable) has been applied. Labs Laboratory Tests Test 01/22/19 12:18 01/22/19 19:55 01/23/19 07:55 01/23/19 20:46 O2 Saturation 98 % (92-99) Arterial Blood pH 7.40 (7.35-7.45) Arterial Blood pCO2 at Patient Temp 46 mmHg (35-46) Arterial Blood pO2 at Patient Temp 119 mmHg (65-108) Arterial Blood HCO3 28 mmol/L (21-28) Arterial Blood Base Excess 2 mmol/L (-3-3) Oxyhemoglobin 97.2 % Methemoglobin 0.2 % (0.0-1.9) Carbon Monoxide, Quantitative 0.5 % (0.0-1.9) FiO2 32 Glucose (Fingerstick) 251 mg/dL (70-99) 142 mg/dL (70-99) 200 mg/dL (70-99) Test 01/24/19 04:15 01/24/19 06:21 01/24/19 07:31 White Blood Count 9.1 x10^3/uL (4.0-11.0) Red Blood Count 4.43 x10^6/uL (3.50-5.40) Hemoglobin 12.9 g/dL (12.0-15.5) Hematocrit 40.0 % (36.0-47.0) Mean Corpuscular Volume 90 fL (79-100) Mean Corpuscular Hemoglobin 29 pg (25-35) Mean Corpuscular Hemoglobin Concent 32 g/dL (31-37) Red Cell Distribution Width 15.2 % (11.5-14.5) Platelet Count 226 x10^3/uL (140-400) Neutrophils (%) (Auto) 82 % (31-73) Lymphocytes (%) (Auto) 12 % (24-48) Monocytes (%) (Auto) 6 % (0-9) Eosinophils (%) (Auto) 0 % (0-3) Basophils (%) (Auto) 0 % (0-3) Neutrophils # (Auto) 7.5 x10^3/uL (1.8-7.7) Lymphocytes # (Auto) 1.1 x10^3/uL (1.0-4.8) Monocytes # (Auto) 0.5 x10^3/uL (0.0-1.1) Eosinophils # (Auto) 0.0 x10^3/uL (0.0-0.7) Basophils # (Auto) 0.0 x10^3/uL (0.0-0.2) Sodium Level 139 mmol/L (136-145) Potassium Level 4.3 mmol/L (3.5-5.1) Chloride Level 102 mmol/L (98-107) Carbon Dioxide Level 30 mmol/L (21-32) Anion Gap 7 (6-14) Blood Urea Nitrogen 19 mg/dL (7-20) Creatinine 1.0 mg/dL (0.6-1.0) Estimated GFR (Cockcroft-Gault) 67.8 Glucose Level 276 mg/dL (70-99) Calcium Level 8.5 mg/dL (8.5-10.1) Glucose (Fingerstick) 232 mg/dL (70-99) 233 mg/dL (70-99) Laboratory Tests Test 01/23/19 20:46 01/24/19 04:15 01/24/19 06:21 01/24/19 07:31 Glucose (Fingerstick) 200 mg/dL (70-99) 232 mg/dL (70-99) 233 mg/dL (70-99) White Blood Count 9.1 x10^3/uL (4.0-11.0) Red Blood Count 4.43 x10^6/uL (3.50-5.40) Hemoglobin 12.9 g/dL (12.0-15.5) Hematocrit 40.0 % (36.0-47.0) Mean Corpuscular Volume 90 fL (79-100) Mean Corpuscular Hemoglobin 29 pg (25-35) Mean Corpuscular Hemoglobin Concent 32 g/dL (31-37) Red Cell Distribution Width 15.2 % (11.5-14.5) Platelet Count 226 x10^3/uL (140-400) Neutrophils (%) (Auto) 82 % (31-73) Lymphocytes (%) (Auto) 12 % (24-48) Monocytes (%) (Auto) 6 % (0-9) Eosinophils (%) (Auto) 0 % (0-3) Basophils (%) (Auto) 0 % (0-3) Neutrophils # (Auto) 7.5 x10^3/uL (1.8-7.7) Lymphocytes # (Auto) 1.1 x10^3/uL (1.0-4.8) Monocytes # (Auto) 0.5 x10^3/uL (0.0-1.1) Eosinophils # (Auto) 0.0 x10^3/uL (0.0-0.7) Basophils # (Auto) 0.0 x10^3/uL (0.0-0.2) Sodium Level 139 mmol/L (136-145) Potassium Level 4.3 mmol/L (3.5-5.1) Chloride Level 102 mmol/L (98-107) Carbon Dioxide Level 30 mmol/L (21-32) Anion Gap 7 (6-14) Blood Urea Nitrogen 19 mg/dL (7-20) Creatinine 1.0 mg/dL (0.6-1.0) Estimated GFR (Cockcroft-Gault) 67.8 Glucose Level 276 mg/dL (70-99) Calcium Level 8.5 mg/dL (8.5-10.1) Microbiology 01/19/19 Blood Culture - Preliminary, Resulted NO GROWTH AFTER 4 DAYS Medications Current Medications Albuterol/ Ipratropium (Duoneb) 3 ml 1X ONCE NEB Last administered on 01/19/19at 19:30; Start 01/19/19 at 19:30; Stop 01/19/19 at 19:31; Status DC Iohexol (Omnipaque 350 Mg/ml) 100 ml 1X ONCE IV Last administered on 01/19/19at 21:30; Start 01/19/19 at 21:30; Stop 01/19/19 at 21:31; Status DC Info (CONTRAST GIVEN -- Rx MONITORING) 1 each PRN DAILY PRN MC SEE COMMENTS; Start 01/19/19 at 21:00; Stop 01/21/19 at 20:59; Status DC Ondansetron HCl (Zofran) 4 mg PRN Q8HRS PRN IV NAUSEA/VOMITING 1ST CHOICE; Start 01/20/19 at 00:45; Stop 01/21/19 at 00:44; Status DC Albuterol/ Ipratropium (Duoneb) 3 ml RTQID NEB Last administered on 01/20/19at 20:23; Start 01/20/19 at 08:00; Stop 01/21/19 at 07:59; Status DC Levofloxacin/ Dextrose 150 ml @ 100 mls/hr 1X ONCE IV Last administered on 01/20/19at 01:05; Start 01/20/19 at 01:00; Stop 01/20/19 at 02:29; Status DC Methylprednisolone Sodium Succinate (SOLU-Medrol 40MG VIAL) 40 mg Q8HRS IV Last administered on 01/23/19at 05:59; Start 01/20/19 at 14:00; Stop 01/23/19 at 09:05; Status DC Levofloxacin/ Dextrose 100 ml @ 100 mls/hr Q24H IV Last administered on 01/20/19at 20:49; Start 01/20/19 at 21:00; Stop 01/22/19 at 14:31; Status DC Budesonide (Pulmicort) 0.5 mg RTBID NEB Last administered on 01/24/19 08:00; Start 01/20/19 at 20:00 Albuterol Sulfate (Ventolin Neb Soln) 2.5 mg Q4HRS W/A PRN INH SHORTNESS OF BREATH Last administered on 01/22/19 07:20; Start 01/20/19 at 16:30 Alprazolam (Xanax) 1 mg BID PO Last administered on 01/24/19 08:26; Start 01/20/19 at 21:00 Furosemide (Lasix) 20 mg DAILY PO Last administered on 01/24/19 08:26; Start 01/21/19 at 09:00 Metformin HCl (Glucophage) 500 mg BIDWMEALS PO Last administered on 01/24/19 08:26; Start 01/22/19 at 08:00 Montelukast Sodium (Singulair) 10 mg DAILY PO Last administered on 01/24/19 08:27; Start 01/21/19 at 09:00 Oxycodone/ Acetaminophen (Percocet 5/325) 1 tab Q4HRS PRN PO PAIN; Start 01/20/19 at 16:30 Phenytoin Sodium (Dilantin) 100 mg DAILY PO Last administered on 01/24/19 08:27; Start 01/21/19 at 09:00 Non-Formulary Medication (Fluticasone/ Salmeterol (Advair 500-50 Diskus)) 1 each BID INH ; Start 01/20/19 at 21:00; Status UNV Cetirizine HCl (ZyrTEC) 10 mg DAILY PO Last administered on 01/24/19 08:26; Start 01/21/19 at 09:00 Pantoprazole Sodium (Protonix) 40 mg DAILYAC PO Last administered on 01/24/19 08:26; Start 01/21/19 at 07:30 Oxycodone HCl (OxyCONTIN) 80 mg Q12HR PO Last administered on 01/24/19 09:32; Start 01/20/19 at 21:00 Non-Formulary Medication (Pantoprazole Sodium (Protonix)) 40 mg DAILY PO ; Start 01/21/19 at 09:00; Status UNV Sodium Chloride (Normal Saline Flush) 3 ml QSHIFT PRN IV AFTER MEDS AND BLOOD DRAWS; Start 01/20/19 at 16:45 Ondansetron HCl (Zofran) 4 mg PRN Q4HRS PRN IV NAUSEA/VOMITING; Start 01/20/19 at 16:45 Acetaminophen (Tylenol) 650 mg PRN Q4HRS PRN PO TEMP OVER 100.4F OR MILD PAIN; Start 01/20/19 at 16:45 Al Hydroxide/Mg Hydroxide (Mylanta Plus Xs) 30 ml PRN DAILY PRN PO HEARTBURN / GAS; Start 01/20/19 at 16:45 Clonidine HCl (Catapres) 0.1 mg PRN Q6HRS PRN PO SBP>160 OR DBP>90; Start 01/20/19 at 16:45 Docusate Sodium (Colace) 100 mg PRN BID PRN PO CONSTIPATION; Start 01/20/19 at 16:45 Guaifenesin (Robitussin) 200 mg PRN Q4HRS PRN PO COUGH Last administered on 01/21/19at 13:54; Start 01/20/19 at 16:45; Stop 01/23/19 at 12:18; Status DC Lorazepam (Ativan) 0.5 mg PRN Q4HRS PRN PO ANXIETY / AGITATION; Start 01/20/19 at 16:45 Enoxaparin Sodium (Lovenox 40mg Syringe) 40 mg DAILY SQ Last administered on 01/24/19at 08:27; Start 01/21/19 at 09:00 Lactobacillus Rhamnosus (Culturelle) 1 cap BID PO Last administered on 01/24/19at 08:26; Start 01/21/19 at 21:00 Levofloxacin (Levaquin) 500 mg DAILY06 PO Last administered on 01/24/19at 05:11; Start 01/21/19 at 23:00 Furosemide (Lasix) 40 mg 1X ONCE IVP Last administered on 01/22/19at 14:47; Start 01/22/19 at 12:30; Stop 01/22/19 at 12:31; Status DC Methylprednisolone Sodium Succinate (SOLU-Medrol 40MG VIAL) 40 mg Q12HR IV Last administered on 01/24/19at 08:28; Start 01/23/19 at 21:00; Stop 01/24/19 at 09:26; Status DC Guaifenesin (MUCINEX ER with DM) 2 tab BID PO Last administered on 01/23/19at 12:29; Start 01/23/19 at 12:00 Insulin Human Lispro (HumaLOG) 0-5 UNITS TIDWMEALS SQ Last administered on 01/24/19at 08:36; Start 01/24/19 at 08:00 Dextrose (Dextrose 50%-Water Syringe) 12.5 gm PRN Q15MIN PRN IV SEE COMMENTS; Start 01/24/19 at 06:45 Dextrose (Iv Dextrose 5%) 250 ml PRN Q15MIN PRN IV SEE COMMENTS; Start 01/24/19 at 06:45 Prednisone (Prednisone) 40 mg DAILY PO ; Start 01/25/19 at 09:00 Active Scripts Active Reported Metformin Hcl 500 Mg Tablet 500 Mg PO BIDWMEALS Azithromycin Tablet (Azithromycin) 250 Mg Tablet 250 Mg PO PT STATED THAT SHE HAS BEEN TAKING ABX FOR THREE DAYS, UNABLE TO STATE HOW MANY TIME PER DAY OR WHY SHE IS TAKING IT Dilantin (Phenytoin Sodium Extended) 100 Mg Capsule 1 Cap PO DAILY Combivent Respimat Inhal (Ipratropium/Albuterol Sulfate) 4 Gm Aer.w.adap 4 Gm INH Advair 500-50 Diskus (Fluticasone/Salmeterol) 1 Each Disk.w.dev 1 Each INH BID Proair Hfa (Albuterol Sulfate) 8.5 Gm Hfa.aer.ad 8.5 Gm INH PRN Protonix (Pantoprazole Sodium) 20 Mg Tablet. 40 Mg PO DAILY Oxycontin (Oxycodone HCl) 80 Mg Tab.er.12h 80 Mg PO BID Loratadine 10 Mg Tablet 10 Mg PO DAILY Oxycodone-Acetaminophen 5-325 (Oxycodone Hcl/Acetaminophen) 1 Each Tablet 1 Tab PO Q4HRS PRN Alprazolam 1 Mg Tablet 1 Mg PO BID Furosemide 20 Mg Tablet 20 Mg PO DAILY Montelukast Sodium Tablet (Montelukast Sodium) 10 Mg Tablet 10 Mg PO DAILY Omeprazole 40 Mg Capsule.dr 40 Mg PO DAILY Vitals/I & O Vital Sign - Last 24 Hours 01/23/19 01/23/19 01/23/19 01/23/19 14:18 15:00 19:00 20:00 Temp 98.0 98.1 98.0 98.1 Pulse 96 88 Resp 16 16 B/P (MAP) 112/69 (83) 135/86 (102) Pulse Ox 91 93 O2 Delivery Nasal Cannula Nasal Cannula Nasal Cannula Nasal Cannula O2 Flow Rate 4.0 3.5 4.0 3.5 01/23/19 01/23/19 01/24/19 01/24/19 21:22 23:00 01:30 03:00 Temp 98.0 97.7 98.0 97.7 Pulse 86 79 Resp 16 17 16 18 B/P (MAP) 126/86 (99) 141/87 (105) Pulse Ox 92 90 90 O2 Delivery Nasal Cannula Nasal Cannula Nasal Cannula Nasal Cannula O2 Flow Rate 4.0 4.0 4.0 4.0 01/24/19 01/24/19 01/24/19 01/24/19 07:00 08:00 08:52 09:32 Temp 98.3 98.3 Pulse 78 Resp 16 B/P (MAP) 148/82 (104) Pulse Ox 93 96 96 O2 Delivery Nasal Cannula Nasal Cannula Nasal Cannula Nasal Cannula O2 Flow Rate 4.0 4.0 4.0 4.0 Intake and Output 01/23/19 01/23/19 01/24/19 15:00 23:00 07:00 Intake Total 140 ml 120 ml Balance 140 ml 120 ml BERRY JOSE MD Jan 24, 2019 11:14
[2019-01-24 15:00] VITALS: BP 148/83
--- NOTE | 2019-01-24 18:42 | NUR ---
Patient had complaints of feeling funny and vomiting, VSS. MD Tommy notified. Orders received to check at LA level and Dilantin level and to give 1000mg of Keppra and start on 500mg BID 01/25/19. Patient notified of new changes.
[2019-01-24 19:32] VITALS: BP 136/78
[2019-01-24 20:10] LABS: PHENY 1.7 mcg/mL (10.0-20.0)
[2019-01-24] MEDS ORDERED: levETIRAcetam 500 MG TABLET PO ONE (21:00)
[2019-01-24 23:57] VITALS: BP 130/75
[2019-01-25 03:25] VITALS: BP 127/76
[2019-01-25 07:00] VITALS: BP 108/62
[2019-01-25] MEDS: INSULIN LISPRO 300 UNITS/3 ML VIAL. SQ SCH ×3 (08:00→17:00)
--- NOTE | 2019-01-25 08:16 | PDOC ---
PROGRESS NOTES History of Present Illness History of Present Illness VTE Prophylaxis Ordered VTE Prophylaxis Devices: No VTE Pharmacological Prophylaxi: Yes Assessment/Plan Assessment/Plan IMPRESSION: 1. Acute on chronic hypoxic respiratory failure secondary to acute exacerbation WITH RESP FAILURE, EXAC of chronic obstructive pulmonary disease and likely viral basal pneumonia. 2. No acute pulmonary embolism is identified.ON CTA 3. At the right more so than left lung bases, mostly linear opacities are identified that are suggestive of atelectasis but could potentially represent an infectious process in the appropriate clinic setting. 4. few millimetric pulmonary nodules are noted. These do not meet size criteria for dedicated follow-up however given the appearance of the lungs and presumed risk factors for lung malignancy, optional CT follow-up in 12 months could be considered. 5. MORBID OBESITY 6. Moderate pulmonary HTN 7. RIGHT SHOULDER PAIN ON X-RAY There is no evidence for acute fracture or dislocation. AC joint is congruent. Humeral head is not high riding. 8. ATYPICAL CHEST PAIN 9. Doppler and Color Flow revealed mild to moderate tricuspid regurgitation. Doppler and Color Flow revealed moderate pulmonary hypertension. 01/22 more soa, tachy PLAN ADMIT EMPERIC IV ANTIBIOTICS PULM CONSULT IV STEROID TAPER DVT PROPHYLAXIS PAIN CONTROL cxr REVIEWED echo cardiology consult 29 MIN PT EXAM, CHART REVIEW, > 50% OF TIME SPENT WITH EXAM, CHART REVIEW, PT CARE COORDINATION Vitals Vitals Vital Signs Date Time Temp Pulse Resp B/P (MAP) Pulse Ox O2 Delivery O2 Flow Rate FiO2 01/25/19 03:25 98.0 88 20 127/76 (93) 91 Nasal Cannula 3.0 98.0 Physical Exam Physical Exam Neck: Normal range of motion, no tenderness, supple, no stridor. [] Cardiovascular:Heart rate regular rhythm, no murmur [] Lungs & Thorax: Bilateral crackles [] Abdomen: Bowel sounds normal, soft, no tenderness, no masses, no pulsatile masses. [] Skin: Warm, dry, no erythema, no rash. [] Back: No tenderness, no CVA tenderness. [] Extremities: No tenderness, no cyanosis, no clubbing, ROM intact, no edema. [] Neurologic: Alert and oriented X 3, normal motor function, normal sensory function, no focal deficits noted. [] Psychologic: Affect normal, judgment normal, mood normal. [] General: Alert, Oriented X3, Cooperative HEENT: Atraumatic Breasts: Not examined Abdomen: Soft Rectal Exam: not examined Extremities: No cyanosis Neuro: Normal speech, Strength at 5/5 X4 ext, Cranial nerves 3-12 NL Psych/Mental Status: Mental status NL, Mood NL General: Alert, Oriented X3, Cooperative, No acute distress, mild distress Heart: Regular rate (SR no ectopies), Normal S1, Normal S2, Other (3/6 systolic murmur to LLS border) Lungs: Crackles Abdomen: Normal bowel sounds, Soft, No tenderness Extremities: No cyanosis Skin: No breakdown Labs LABS STATUS: ADM IN TLOC: SPEC #: [id number] FLORENCIA: 01/19/19 STATUS: COMP REQ #: [id number] RECD: 01/19/[address] [facility] [address]: REJI CLAUDIO MD SOURCE: BLOOD ENTR: 01/19/[address]: SALLY [facility]UNOZ [facility] ORDERED: BCULT Procedure Result BLOOD CULTURE Final NO GROWTH AFTER 5 DAYS Laboratory Tests Test 01/24/19 11:24 01/24/19 14:58 01/24/19 17:05 01/24/19 19:45 Glucose (Fingerstick) 281 mg/dL (70-99) 165 mg/dL (70-99) 242 mg/dL (70-99) Lactic Acid Level 2.8 mmol/L (0.4-2.0) Phenytoin (Dilantin) Level 1.7 mcg/mL (10.0-20.0) Phenytoin Last Dose Date Unk Phenytoin Last Dose Time Unk Test 01/24/19 20:31 01/24/19 22:45 Glucose (Fingerstick) 173 mg/dL (70-99) Lactic Acid Level 2.3 mmol/L (0.4-2.0) Assessment and Plan Assessmemt and Plan Problems Medical Problems: (1) Hypoxia Status: Acute (2) Insufficiency, respiratory, acute Status: Acute (3) PNA (pneumonia) Status: Acute * pt denied pain Bed Mobility Comments * I per pt report Transfer Assistance Required * Independent Transfer Type * Sit to Stand Transfer Assistive Device * Cane Ambulation Assistance Required * Independent Ambulation Assistive Device * Cane Ambulation Distance * paced; 80 ft standing rest 2 min 80 ft Ambulation Comments * Pt reports she is walking at her baseline. Stairs Comments * Pt simulated taking 4 steps with one hand on bed footboard for support and cane use in the other hand. Pt appeared steady. 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 Sitting Exercises * Ankle Pumps * Hip Abduction * Long Arc Quads * Marching * Glut Sets * Pillow Squeeze Sitting Exercises Comments * x 10 reps; rec 3x/dayx 10 reps; AP hourly Patient condition at conclusion of therapy * Pt in bed * Phone in reach * PtIn no apparent distress * Pt denies further needs Communicated Patient Care With (Name, Title) * Rn, Kamron; CECILIA Desouza No Further Skilled P.T. Intervention Required * Eval only-No PT Needs Discharge Recommendations * Home with 24hr care Discharge Recommendation - DME * Cane Comment Review of Relevant I have reviewed the following items santino (where applicable) has been applied. Labs Laboratory Tests Test 01/23/19 20:46 01/24/19 04:15 01/24/19 06:21 01/24/19 07:31 Glucose (Fingerstick) 200 mg/dL (70-99) 232 mg/dL (70-99) 233 mg/dL (70-99) White Blood Count 9.1 x10^3/uL (4.0-11.0) Red Blood Count 4.43 x10^6/uL (3.50-5.40) Hemoglobin 12.9 g/dL (12.0-15.5) Hematocrit 40.0 % (36.0-47.0) Mean Corpuscular Volume 90 fL (79-100) Mean Corpuscular Hemoglobin 29 pg (25-35) Mean Corpuscular Hemoglobin Concent 32 g/dL (31-37) Red Cell Distribution Width 15.2 % (11.5-14.5) Platelet Count 226 x10^3/uL (140-400) Neutrophils (%) (Auto) 82 % (31-73) Lymphocytes (%) (Auto) 12 % (24-48) Monocytes (%) (Auto) 6 % (0-9) Eosinophils (%) (Auto) 0 % (0-3) Basophils (%) (Auto) 0 % (0-3) Neutrophils # (Auto) 7.5 x10^3/uL (1.8-7.7) Lymphocytes # (Auto) 1.1 x10^3/uL (1.0-4.8) Monocytes # (Auto) 0.5 x10^3/uL (0.0-1.1) Eosinophils # (Auto) 0.0 x10^3/uL (0.0-0.7) Basophils # (Auto) 0.0 x10^3/uL (0.0-0.2) Sodium Level 139 mmol/L (136-145) Potassium Level 4.3 mmol/L (3.5-5.1) Chloride Level 102 mmol/L (98-107) Carbon Dioxide Level 30 mmol/L (21-32) Anion Gap 7 (6-14) Blood Urea Nitrogen 19 mg/dL (7-20) Creatinine 1.0 mg/dL (0.6-1.0) Estimated GFR (Cockcroft-Gault) 67.8 Glucose Level 276 mg/dL (70-99) Calcium Level 8.5 mg/dL (8.5-10.1) Test 01/24/19 11:24 01/24/19 14:58 01/24/19 17:05 01/24/19 19:45 Glucose (Fingerstick) 281 mg/dL (70-99) 165 mg/dL (70-99) 242 mg/dL (70-99) Lactic Acid Level 2.8 mmol/L (0.4-2.0) Phenytoin (Dilantin) Level 1.7 mcg/mL (10.0-20.0) Phenytoin Last Dose Date Unk Phenytoin Last Dose Time Unk Test 01/24/19 20:31 01/24/19 22:45 Glucose (Fingerstick) 173 mg/dL (70-99) Lactic Acid Level 2.3 mmol/L (0.4-2.0) Laboratory Tests Test 01/24/19 11:24 01/24/19 14:58 01/24/19 17:05 01/24/19 19:45 Glucose (Fingerstick) 281 mg/dL (70-99) 165 mg/dL (70-99) 242 mg/dL (70-99) Lactic Acid Level 2.8 mmol/L (0.4-2.0) Phenytoin (Dilantin) Level 1.7 mcg/mL (10.0-20.0) Phenytoin Last Dose Date Unk Phenytoin Last Dose Time Unk Test 01/24/19 20:31 01/24/19 22:45 Glucose (Fingerstick) 173 mg/dL (70-99) Lactic Acid Level 2.3 mmol/L (0.4-2.0) Microbiology 01/19/19 Blood Culture - Final, Complete NO GROWTH AFTER 5 DAYS Medications Current Medications Albuterol/ Ipratropium (Duoneb) 3 ml 1X ONCE NEB Last administered on 01/19/19at 19:30; Start 01/19/19 at 19:30; Stop 01/19/19 at 19:31; Status DC Iohexol (Omnipaque 350 Mg/ml) 100 ml 1X ONCE IV Last administered on 01/19/19at 21:30; Start 01/19/19 at 21:30; Stop 01/19/19 at 21:31; Status DC Info (CONTRAST GIVEN -- Rx MONITORING) 1 each PRN DAILY PRN MC SEE COMMENTS; Start 01/19/19 at 21:00; Stop 01/21/19 at 20:59; Status DC Ondansetron HCl (Zofran) 4 mg PRN Q8HRS PRN IV NAUSEA/VOMITING 1ST CHOICE; Start 01/20/19 at 00:45; Stop 01/21/19 at 00:44; Status DC Albuterol/ Ipratropium (Duoneb) 3 ml RTQID NEB Last administered on 01/20/19at 20:23; Start 01/20/19 at 08:00; Stop 01/21/19 at 07:59; Status DC Levofloxacin/ Dextrose 150 ml @ 100 mls/hr 1X ONCE IV Last administered on 01/20/19at 01:05; Start 01/20/19 at 01:00; Stop 01/20/19 at 02:29; Status DC Methylprednisolone Sodium Succinate (SOLU-Medrol 40MG VIAL) 40 mg Q8HRS IV Last administered on 01/23/19at 05:59; Start 01/20/19 at 14:00; Stop 01/23/19 at 09:05; Status DC Levofloxacin/ Dextrose 100 ml @ 100 mls/hr Q24H IV Last administered on 01/20/19at 20:49; Start 01/20/19 at 21:00; Stop 01/22/19 at 14:31; Status DC Budesonide (Pulmicort) 0.5 mg RTBID NEB Last administered on 01/24/19at 19:56; Start 01/20/19 at 20:00 Albuterol Sulfate (Ventolin Neb Soln) 2.5 mg Q4HRS W/A PRN INH SHORTNESS OF BREATH Last administered on 01/22/19at 07:20; Start 01/20/19 at 16:30 Alprazolam (Xanax) 1 mg BID PO Last administered on 01/24/19at 20:43; Start 01/20/19 at 21:00 Furosemide (Lasix) 20 mg DAILY PO Last administered on 01/24/19 08:26; Start 01/21/19 at 09:00 Metformin HCl (Glucophage) 500 mg BIDWMEALS PO Last administered on 01/24/19 16:38; Start 01/22/19 at 08:00 Montelukast Sodium (Singulair) 10 mg DAILY PO Last administered on 01/24/19 08:27; Start 01/21/19 at 09:00 Oxycodone/ Acetaminophen (Percocet 5/325) 1 tab Q4HRS PRN PO BREAKTHRU PAIN; Start 01/20/19 at 16:30 Phenytoin Sodium (Dilantin) 100 mg DAILY PO Last administered on 01/24/19 08:27; Start 01/21/19 at 09:00 Non-Formulary Medication (Fluticasone/ Salmeterol (Advair 500-50 Diskus)) 1 each BID INH ; Start 01/20/19 at 21:00; Status UNV Cetirizine HCl (ZyrTEC) 10 mg DAILY PO Last administered on 01/24/19 08:26; Start 01/21/19 at 09:00 Pantoprazole Sodium (Protonix) 40 mg DAILYAC PO Last administered on 01/24/19 08:26; Start 01/21/19 at 07:30 Oxycodone HCl (OxyCONTIN) 80 mg Q12HR PO Last administered on 01/24/19 20:44; Start 01/20/19 at 21:00 Non-Formulary Medication (Pantoprazole Sodium (Protonix)) 40 mg DAILY PO ; Start 01/21/19 at 09:00; Status UNV Sodium Chloride (Normal Saline Flush) 3 ml QSHIFT PRN IV AFTER MEDS AND BLOOD DRAWS; Start 01/20/19 at 16:45 Ondansetron HCl (Zofran) 4 mg PRN Q4HRS PRN IV NAUSEA/VOMITING Last administered on 01/24/19 18:22; Start 01/20/19 at 16:45 Acetaminophen (Tylenol) 650 mg PRN Q4HRS PRN PO TEMP OVER 100.4F OR MILD PAIN; Start 01/20/19 at 16:45 Al Hydroxide/Mg Hydroxide (Mylanta Plus Xs) 30 ml PRN DAILY PRN PO HEARTBURN / GAS; Start 01/20/19 at 16:45 Clonidine HCl (Catapres) 0.1 mg PRN Q6HRS PRN PO SBP>160 OR DBP>90; Start 01/20/19 at 16:45 Docusate Sodium (Colace) 100 mg PRN BID PRN PO CONSTIPATION; Start 01/20/19 at 16:45 Guaifenesin (Robitussin) 200 mg PRN Q4HRS PRN PO COUGH Last administered on 01/21/19at 13:54; Start 01/20/19 at 16:45; Stop 01/23/19 at 12:18; Status DC Lorazepam (Ativan) 0.5 mg PRN Q4HRS PRN PO ANXIETY / AGITATION; Start 01/20/19 at 16:45 Enoxaparin Sodium (Lovenox 40mg Syringe) 40 mg DAILY SQ Last administered on 01/24/19at 08:27; Start 01/21/19 at 09:00 Lactobacillus Rhamnosus (Culturelle) 1 cap BID PO Last administered on 01/24/19at 20:43; Start 01/21/19 at 21:00 Levofloxacin (Levaquin) 500 mg DAILY06 PO Last administered on 01/25/19at 05:53; Start 01/21/19 at 23:00 Furosemide (Lasix) 40 mg 1X ONCE IVP Last administered on 01/22/19at 14:47; Start 01/22/19 at 12:30; Stop 01/22/19 at 12:31; Status DC Methylprednisolone Sodium Succinate (SOLU-Medrol 40MG VIAL) 40 mg Q12HR IV Last administered on 01/24/19at 08:28; Start 01/23/19 at 21:00; Stop 01/24/19 at 09:26; Status DC Guaifenesin (MUCINEX ER with DM) 2 tab BID PO Last administered on 01/23/19at 12:29; Start 01/23/19 at 12:00 Insulin Human Lispro (HumaLOG) 0-5 UNITS TIDWMEALS SQ Last administered on 01/24/19at 17:50; Start 01/24/19 at 08:00 Dextrose (Dextrose 50%-Water Syringe) 12.5 gm PRN Q15MIN PRN IV SEE COMMENTS; Start 01/24/19 at 06:45 Dextrose (Iv Dextrose 5%) 250 ml PRN Q15MIN PRN IV SEE COMMENTS; Start 01/24 at 06:45 Prednisone (Prednisone) 40 mg DAILY PO ; Start 01/25/19 at 09:00 Levetiracetam (Keppra) 1,000 mg 1X ONCE PO Last administered on 01/24/19at 20:45; Start 01/24/19 at 21:00; Stop 01/24/19 at 21:01; Status DC Levetiracetam (Keppra) 500 mg BID PO ; Start 01/25/19 at 09:00 Active Scripts Active Reported Metformin Hcl 500 Mg Tablet 500 Mg PO BIDWMEALS Azithromycin Tablet (Azithromycin) 250 Mg Tablet 250 Mg PO PT STATED THAT SHE HAS BEEN TAKING ABX FOR THREE DAYS, UNABLE TO STATE HOW MANY TIME PER DAY OR WHY SHE IS TAKING IT Dilantin (Phenytoin Sodium Extended) 100 Mg Capsule 1 Cap PO DAILY Combivent Respimat Inhal (Ipratropium/Albuterol Sulfate) 4 Gm Aer.w.adap 4 Gm INH Advair 500-50 Diskus (Fluticasone/Salmeterol) 1 Each Disk.w.dev 1 Each INH BID Proair Hfa (Albuterol Sulfate) 8.5 Gm Hfa.aer.ad 8.5 Gm INH PRN Protonix (Pantoprazole Sodium) 20 Mg Tablet. 40 Mg PO DAILY Oxycontin (Oxycodone HCl) 80 Mg Tab.er.12h 80 Mg PO BID Loratadine 10 Mg Tablet 10 Mg PO DAILY Oxycodone-Acetaminophen 5-325 (Oxycodone Hcl/Acetaminophen) 1 Each Tablet 1 Tab PO Q4HRS PRN Alprazolam 1 Mg Tablet 1 Mg PO BID Furosemide 20 Mg Tablet 20 Mg PO DAILY Montelukast Sodium Tablet (Montelukast Sodium) 10 Mg Tablet 10 Mg PO DAILY Omeprazole 40 Mg Capsule. 40 Mg PO DAILY Vitals/I & O Vital Sign - Last 24 Hours 01/24/19 01/24/19 01/24/19 01/24/19 08:52 09:32 11:00 12:41 Temp 98.5 98.5 Pulse 85 Resp 16 B/P (MAP) 127/86 (100) Pulse Ox 96 96 93 91 O2 Delivery Nasal Cannula Nasal Cannula Nasal Cannula Nasal Cannula O2 Flow Rate 4.0 4.0 4.0 4.0 01/24/19 01/24/19 01/24/19 01/24/19 14:26 15:00 19:32 20:00 Temp 98.2 98.2 Pulse 85 87 Resp 22 B/P (MAP) 148/83 (104) 136/78 (97) Pulse Ox 91 93 O2 Delivery Nasal Cannula Nasal Cannula Nasal Cannula O2 Flow Rate 4.0 3.0 2.0 01/24/19 01/24/19 01/24/19 01/25/19 20:00 20:44 23:57 00:55 Temp 98.4 98.4 Pulse 90 Resp 20 20 16 B/P (MAP) 130/75 (93) Pulse Ox 93 92 92 O2 Delivery Nasal Cannula Nasal Cannula Nasal Cannula Nasal Cannula O2 Flow Rate 3.5 2.0 3.0 3.0 01/25/19 03:25 Temp 98.0 98.0 Pulse 88 Resp 20 B/P (MAP) 127/76 (93) Pulse Ox 91 O2 Delivery Nasal Cannula O2 Flow Rate 3.0 Intake and Output 01/24/19 01/24/19 01/25/19 15:00 23:00 07:00 Intake Total 360 ml 550 ml Balance 360 ml 550 ml BERRY JOSE MD Jan 25, 2019 08:16
--- NOTE | 2019-01-25 08:38 | PDOC ---
PULMONARY PROGRESS NOTES Subjective NOT MORE SOA Vitals Vital Signs Date Time Temp Pulse Resp B/P (MAP) Pulse Ox O2 Delivery O2 Flow Rate FiO2 01/25/19 07:00 98.4 75 20 108/62 (77) 94 Nasal Cannula 3.0 98.4 ROS: No Nausea General: Alert, No acute distress Lungs: Crackles Cardiovascular: S1, S2 Abdomen: Soft, Non-tender Extremities: No Edema Skin: Warm Labs Laboratory Tests Test 01/23/19 20:46 01/24/19 04:15 01/24/19 06:21 01/24/19 07:31 Glucose (Fingerstick) 200 mg/dL (70-99) 232 mg/dL (70-99) 233 mg/dL (70-99) White Blood Count 9.1 x10^3/uL (4.0-11.0) Red Blood Count 4.43 x10^6/uL (3.50-5.40) Hemoglobin 12.9 g/dL (12.0-15.5) Hematocrit 40.0 % (36.0-47.0) Mean Corpuscular Volume 90 fL (79-100) Mean Corpuscular Hemoglobin 29 pg (25-35) Mean Corpuscular Hemoglobin Concent 32 g/dL (31-37) Red Cell Distribution Width 15.2 % (11.5-14.5) Platelet Count 226 x10^3/uL (140-400) Neutrophils (%) (Auto) 82 % (31-73) Lymphocytes (%) (Auto) 12 % (24-48) Monocytes (%) (Auto) 6 % (0-9) Eosinophils (%) (Auto) 0 % (0-3) Basophils (%) (Auto) 0 % (0-3) Neutrophils # (Auto) 7.5 x10^3/uL (1.8-7.7) Lymphocytes # (Auto) 1.1 x10^3/uL (1.0-4.8) Monocytes # (Auto) 0.5 x10^3/uL (0.0-1.1) Eosinophils # (Auto) 0.0 x10^3/uL (0.0-0.7) Basophils # (Auto) 0.0 x10^3/uL (0.0-0.2) Sodium Level 139 mmol/L (136-145) Potassium Level 4.3 mmol/L (3.5-5.1) Chloride Level 102 mmol/L (98-107) Carbon Dioxide Level 30 mmol/L (21-32) Anion Gap 7 (6-14) Blood Urea Nitrogen 19 mg/dL (7-20) Creatinine 1.0 mg/dL (0.6-1.0) Estimated GFR (Cockcroft-Gault) 67.8 Glucose Level 276 mg/dL (70-99) Calcium Level 8.5 mg/dL (8.5-10.1) Test 01/24/19 11:24 01/24/19 14:58 01/24/19 17:05 01/24/19 19:45 Glucose (Fingerstick) 281 mg/dL (70-99) 165 mg/dL (70-99) 242 mg/dL (70-99) Lactic Acid Level 2.8 mmol/L (0.4-2.0) Phenytoin (Dilantin) Level 1.7 mcg/mL (10.0-20.0) Phenytoin Last Dose Date Unk Phenytoin Last Dose Time Unk Test 01/24/19 20:31 01/24/19 22:45 Glucose (Fingerstick) 173 mg/dL (70-99) Lactic Acid Level 2.3 mmol/L (0.4-2.0) Laboratory Tests Test 01/24/19 11:24 01/24/19 14:58 01/24/19 17:05 01/24/19 19:45 Glucose (Fingerstick) 281 mg/dL (70-99) 165 mg/dL (70-99) 242 mg/dL (70-99) Lactic Acid Level 2.8 mmol/L (0.4-2.0) Phenytoin (Dilantin) Level 1.7 mcg/mL (10.0-20.0) Phenytoin Last Dose Date Unk Phenytoin Last Dose Time Unk Test 01/24/19 20:31 01/24/19 22:45 Glucose (Fingerstick) 173 mg/dL (70-99) Lactic Acid Level 2.3 mmol/L (0.4-2.0) Medications Active Scripts Medications Dose Route/Sig Max Daily Dose Days Date Category Dose Instructions Metformin Hcl 500 Mg Tablet 500 Mg PO BIDWMEALS 01/20/19 Reported Azithromycin Tablet (Azithromycin) 250 Mg Tablet 250 Mg PO 06/14/17 Reported PT STATED THAT SHE HAS BEEN TAKING ABX FOR THREE DAYS, UNABLE TO STATE HOW MANY TIME PER DAY OR WHY SHE IS TAKING IT Dilantin (Phenytoin Sodium Extended) 100 Mg Capsule 1 Cap PO DAILY 06/14/17 Reported Combivent Respimat Inhal (Ipratropium/Albuterol Sulfate) 4 Gm Aer.w.adap 4 Gm INH 06/14/17 Reported Advair 500-50 Diskus (Fluticasone/Salmeterol) 1 Each Disk.w.dev 1 Each INH BID 06/14/17 Reported Proair Hfa (Albuterol Sulfate) 8.5 Gm Hfa.aer.ad 8.5 Gm INH PRN 06/14/17 Reported Protonix (Pantoprazole Sodium) 20 Mg Tablet.dr 40 Mg PO DAILY 06/14/17 Reported Oxycontin (Oxycodone HCl) 80 Mg Tab.er.12h 80 Mg PO BID 06/14/17 Reported Loratadine 10 Mg Tablet 10 Mg PO DAILY 06/14/17 Reported Oxycodone-Acetaminophen 5-325 (Oxycodone Hcl/Acetaminophen) 1 Each Tablet 1 Tab PO Q4HRS PRN 06/14/17 Reported Alprazolam 1 Mg Tablet 1 Mg PO BID 06/14/17 Reported Furosemide 20 Mg Tablet 20 Mg PO DAILY 06/14/17 Reported Montelukast Sodium Tablet (Montelukast Sodium) 10 Mg Tablet 10 Mg PO DAILY 06/14/17 Reported Omeprazole 40 Mg Capsule.dr 40 Mg PO DAILY 06/14/17 Reported Impression . 1. Acute on chronic hypoxic respiratory failure secondary to acute exacerbation of chronic obstructive pulmonary disease and likely viral basal pneumonia. The patient was exposed to respiratory syncytial virus infection from grand child 2. Abnormal CT chest with some basal atelectasis versus infiltrate. Likely infectious etiology. 3. Underlying morbid obesity. 4. Underlying chronic obstructive pulmonary disease, unknown FEV1. Plan . RESP STATUS IS COMPENSATED OK TO D/C SOON HOME O2 KELLY MUNSON MD Jan 25, 2019 08:38
[2019-01-25] MEDS: LACTOBACILLUS RHAMNOSUS GG 1 CAPSULE. PO SCH ×2 (08:48→20:53)
[2019-01-25] MEDS: MONTELUKAST SODIUM 10 MG TABLET. PO SCH (08:49)
[2019-01-25] MEDS: CETIRIZINE HCL 10 MG TABLET. PO SCH (08:49)
[2019-01-25] MEDS: ALBUTEROL SULFATE 2.5 MG/3 ML NEBU. INH PRN ×3 (08:49→20:00)
[2019-01-25] MEDS: BUDESONIDE 0.5 MG/2 ML NEBU. NEB SCH ×2 (08:49→20:00)
[2019-01-25] MEDS: guaiFENesin DM 600/30MG 1 TAB TAB.ER.12H PO SCH ×3 (08:49→20:52)
[2019-01-25] MEDS: metFORMIN 500 MG TABLET PO SCH ×2 (08:50→17:29)
[2019-01-25] MEDS: levETIRAcetam 500 MG TABLET PO SCH ×2 (08:50→20:52)
[2019-01-25] MEDS: PANTOPRAZOLE 40 MG TABLET.DR. PO SCH (08:50)
[2019-01-25] MEDS: PHENYTOIN SODIUM EXTENDED 100 MG CAPSULE PO SCH (08:50)
[2019-01-25] MEDS: FUROSEMIDE 20 MG TABLET PO SCH (08:51)
[2019-01-25] MEDS: ALPRAZolam 1 MG TABLET PO SCH ×2 (08:51→20:53)
[2019-01-25] MEDS: predniSONE 20 MG TABLET PO SCH (08:51)
[2019-01-25] MEDS: ENOXAPARIN 40 MG/0.4 ML SYRINGE. SQ SCH ×2 (08:52→09:05)
[2019-01-25] MEDS: oxyCODONE ER 40 MG TAB.ER.12H PO SCH ×2 (08:53→20:54)
[2019-01-25 11:48] VITALS: BP 98/62
[2019-01-25 14:41] VITALS: BP 152/82
[2019-01-25 19:15] VITALS: BP 108/58
[2019-01-25 23:18] VITALS: BP 119/79
[2019-01-26 03:19] VITALS: BP 123/77
--- NOTE | 2019-01-26 07:08 | PDOC ---
PULMONARY PROGRESS NOTES Subjective NOT MORE SOA Vitals Vital Signs Date Time Temp Pulse Resp B/P (MAP) Pulse Ox O2 Delivery O2 Flow Rate FiO2 01/26/19 03:19 97.7 79 20 123/77 (92) 92 Room Air 97.7 01/25/19 23:18 3.0 ROS: No Nausea General: Alert, No acute distress Lungs: Crackles Cardiovascular: S1, S2 Abdomen: Soft, Non-tender Extremities: No Edema Skin: Warm Labs Laboratory Tests Test 01/24/19 07:31 01/24/19 11:24 01/24/19 14:58 01/24/19 17:05 Glucose (Fingerstick) 233 mg/dL (70-99) 281 mg/dL (70-99) 165 mg/dL (70-99) 242 mg/dL (70-99) Test 01/24/19 19:45 01/24/19 20:31 01/24/19 22:45 01/25/19 07:55 Lactic Acid Level 2.8 mmol/L (0.4-2.0) 2.3 mmol/L (0.4-2.0) Phenytoin (Dilantin) Level 1.7 mcg/mL (10.0-20.0) Phenytoin Last Dose Date Unk Phenytoin Last Dose Time Unk Glucose (Fingerstick) 173 mg/dL (70-99) 98 mg/dL (70-99) Test 01/25/19 11:22 01/25/19 14:08 01/25/19 16:44 01/25/19 21:16 Glucose (Fingerstick) 106 mg/dL (70-99) 163 mg/dL (70-99) 149 mg/dL (70-99) 186 mg/dL (70-99) Laboratory Tests Test 01/25/19 07:55 01/25/19 11:22 01/25/19 14:08 01/25/19 16:44 Glucose (Fingerstick) 98 mg/dL (70-99) 106 mg/dL (70-99) 163 mg/dL (70-99) 149 mg/dL (70-99) Test 01/25/19 21:16 Glucose (Fingerstick) 186 mg/dL (70-99) Medications Active Scripts Medications Dose Route/Sig Max Daily Dose Days Date Category Dose Instructions Metformin Hcl 500 Mg Tablet 500 Mg PO BIDWMEALS 01/20/19 Reported Azithromycin Tablet (Azithromycin) 250 Mg Tablet 250 Mg PO 06/14/17 Reported PT STATED THAT SHE HAS BEEN TAKING ABX FOR THREE DAYS, UNABLE TO STATE HOW MANY TIME PER DAY OR WHY SHE IS TAKING IT Dilantin (Phenytoin Sodium Extended) 100 Mg Capsule 1 Cap PO DAILY 06/14/17 Reported Combivent Respimat Inhal (Ipratropium/Albuterol Sulfate) 4 Gm Aer.w.adap 4 Gm INH 06/14/17 Reported Advair 500-50 Diskus (Fluticasone/Salmeterol) 1 Each Disk.w.dev 1 Each INH BID 06/14/17 Reported Proair Hfa (Albuterol Sulfate) 8.5 Gm Hfa.aer.ad 8.5 Gm INH PRN 06/14/17 Reported Protonix (Pantoprazole Sodium) 20 Mg Tablet. 40 Mg PO DAILY 06/14/17 Reported Oxycontin (Oxycodone HCl) 80 Mg Tab.er.12h 80 Mg PO BID 06/14/17 Reported Loratadine 10 Mg Tablet 10 Mg PO DAILY 06/14/17 Reported Oxycodone-Acetaminophen 5-325 (Oxycodone Hcl/Acetaminophen) 1 Each Tablet 1 Tab PO Q4HRS PRN 06/14/17 Reported Alprazolam 1 Mg Tablet 1 Mg PO BID 06/14/17 Reported Furosemide 20 Mg Tablet 20 Mg PO DAILY 06/14/17 Reported Montelukast Sodium Tablet (Montelukast Sodium) 10 Mg Tablet 10 Mg PO DAILY 06/14/17 Reported Omeprazole 40 Mg Capsule. 40 Mg PO DAILY 06/14/17 Reported Impression . 1. Acute on chronic hypoxic respiratory failure secondary to acute exacerbation of chronic obstructive pulmonary disease and likely viral basal pneumonia. The patient was exposed to respiratory syncytial virus infection from grand child 2. Abnormal CT chest with some basal atelectasis versus infiltrate. Likely infectious etiology. 3. Underlying morbid obesity. 4. Underlying chronic obstructive pulmonary disease, unknown FEV1. Plan . DC TODAY FOLLOW UP IN OFFICE IN KELLY KAT MD Jan 26, 2019 07:08
[2019-01-26 07:57] VITALS: BP 147/84
[2019-01-26] MEDS: BUDESONIDE 0.5 MG/2 ML NEBU. NEB SCH ×2 (08:00→11:53)
[2019-01-26] MEDS: INSULIN LISPRO 300 UNITS/3 ML VIAL. SQ SCH ×2 (08:00→12:00)
[2019-01-26] MEDS: guaiFENesin DM 600/30MG 1 TAB TAB.ER.12H PO SCH (09:00)
--- NOTE | 2019-01-26 09:36 | PDOC ---
PROGRESS NOTES History of Present Illness History of Present Illness VTE Prophylaxis Ordered VTE Prophylaxis Devices: No VTE Pharmacological Prophylaxi: Yes DISCHARGE DX Assessment/Plan IMPRESSION: 1. Acute on chronic hypoxic respiratory failure secondary to acute exacerbation WITH RESP FAILURE, EXAC of chronic obstructive pulmonary disease and likely viral basal pneumonia. 2. No acute pulmonary embolism is identified.ON CTA 3. At the right more so than left lung bases, mostly linear opacities are identified that are suggestive of atelectasis but could potentially represent an infectious process in the appropriate clinic setting. 4. few millimetric pulmonary nodules are noted. These do not meet size criteria for dedicated follow-up however given the appearance of the lungs and presumed risk factors for lung malignancy, optional CT follow-up in 12 months could be considered. 5. MORBID OBESITY 6. Moderate pulmonary HTN 7. RIGHT SHOULDER PAIN ON X-RAY There is no evidence for acute fracture or dislocation. AC joint is congruent. Humeral head is not high riding. 8. ATYPICAL CHEST PAIN 9. Doppler and Color Flow revealed mild to moderate tricuspid regurgitation. Doppler and Color Flow revealed moderate pulmonary hypertension. 01/22 more soa, tachy PLAN ADMIT EMPERIC IV ANTIBIOTICS PULM CONSULT PO STEROID TAPER DVT PROPHYLAXIS PAIN CONTROL cxr REVIEWED echo cardiology consult D/C 01/26 29 MIN PT EXAM, CHART REVIEW D/C PLANNING , > 50% OF TIME SPENT WITH EXAM, CHART REVIEW, PT CARE COORDINATION Vitals Vitals Vital Signs Date Time Temp Pulse Resp B/P (MAP) Pulse Ox O2 Delivery O2 Flow Rate FiO2 01/26/19 07:57 98.6 86 20 147/84 (105) 93 Room Air 98.6 01/25/19 23:18 3.0 Physical Exam Physical Exam Neck: Normal range of motion, no tenderness, supple, no stridor. [] Cardiovascular:Heart rate regular rhythm, no murmur [] Lungs & Thorax: Bilateral crackles [] Abdomen: Bowel sounds normal, soft, no tenderness, no masses, no pulsatile masses. [] Skin: Warm, dry, no erythema, no rash. [] Back: No tenderness, no CVA tenderness. [] Extremities: No tenderness, no cyanosis, no clubbing, ROM intact, no edema. [] Neurologic: Alert and oriented X 3, normal motor function, normal sensory function, no focal deficits noted. [] Psychologic: Affect normal, judgment normal, mood normal. [] General: Alert, Oriented X3, Cooperative HEENT: Atraumatic Breasts: Not examined Abdomen: Soft Rectal Exam: not examined Extremities: No cyanosis Neuro: Normal speech, Strength at 5/5 X4 ext, Cranial nerves 3-12 NL Psych/Mental Status: Mental status NL, Mood NL General: Alert, Oriented X3, Cooperative, No acute distress, mild distress Heart: Regular rate (SR no ectopies), Normal S1, Normal S2, Other (3/6 systolic murmur to LLS border) Lungs: Crackles Abdomen: Normal bowel sounds, Soft, No tenderness Extremities: No cyanosis Skin: No breakdown Labs LABS Laboratory Tests Test 01/25/19 11:22 01/25/19 14:08 01/25/19 16:44 01/25/19 21:16 Glucose (Fingerstick) 106 mg/dL (70-99) 163 mg/dL (70-99) 149 mg/dL (70-99) 186 mg/dL (70-99) Test 01/26/19 07:41 Glucose (Fingerstick) 93 mg/dL (70-99) Assessment and Plan Assessmemt and Plan Problems Medical Problems: (1) Hypoxia Status: Acute (2) Insufficiency, respiratory, acute Status: Acute (3) PNA (pneumonia) Status: Acute Comment Review of Relevant I have reviewed the following items santino (where applicable) has been applied. Labs Laboratory Tests Test 01/24/19 11:24 01/24/19 14:58 01/24/19 17:05 01/24/19 19:45 Glucose (Fingerstick) 281 mg/dL (70-99) 165 mg/dL (70-99) 242 mg/dL (70-99) Lactic Acid Level 2.8 mmol/L (0.4-2.0) Phenytoin (Dilantin) Level 1.7 mcg/mL (10.0-20.0) Phenytoin Last Dose Date Unk Phenytoin Last Dose Time Unk Test 01/24/19 20:31 01/24/19 22:45 01/25/19 07:55 01/25/19 11:22 Glucose (Fingerstick) 173 mg/dL (70-99) 98 mg/dL (70-99) 106 mg/dL (70-99) Lactic Acid Level 2.3 mmol/L (0.4-2.0) Test 01/25/19 14:08 01/25/19 16:44 01/25/19 21:16 01/26/19 07:41 Glucose (Fingerstick) 163 mg/dL (70-99) 149 mg/dL (70-99) 186 mg/dL (70-99) 93 mg/dL (70-99) Laboratory Tests Test 01/25/19 11:22 01/25/19 14:08 01/25/19 16:44 01/25/19 21:16 Glucose (Fingerstick) 106 mg/dL (70-99) 163 mg/dL (70-99) 149 mg/dL (70-99) 186 mg/dL (70-99) Test 01/26/19 07:41 Glucose (Fingerstick) 93 mg/dL (70-99) Microbiology 01/19/19 Blood Culture - Final, Complete NO GROWTH AFTER 5 DAYS Medications Current Medications Albuterol/ Ipratropium (Duoneb) 3 ml 1X ONCE NEB Last administered on 01/19/19at 19:30; Start 01/19/19 at 19:30; Stop 01/19/19 at 19:31; Status DC Iohexol (Omnipaque 350 Mg/ml) 100 ml 1X ONCE IV Last administered on 01/19/19at 21:30; Start 01/19/19 at 21:30; Stop 01/19/19 at 21:31; Status DC Info (CONTRAST GIVEN -- Rx MONITORING) 1 each PRN DAILY PRN MC SEE COMMENTS; Start 01/19/19 at 21:00; Stop 01/21/19 at 20:59; Status DC Ondansetron HCl (Zofran) 4 mg PRN Q8HRS PRN IV NAUSEA/VOMITING 1ST CHOICE; Start 01/20/19 at 00:45; Stop 01/21/19 at 00:44; Status DC Albuterol/ Ipratropium (Duoneb) 3 ml RTQID NEB Last administered on 01/20/19at 20:23; Start 01/20/19 at 08:00; Stop 01/21/19 at 07:59; Status DC Levofloxacin/ Dextrose 150 ml @ 100 mls/hr 1X ONCE IV Last administered on 01/20/19at 01:05; Start 01/20/19 at 01:00; Stop 01/20/19 at 02:29; Status DC Methylprednisolone Sodium Succinate (SOLU-Medrol 40MG VIAL) 40 mg Q8HRS IV Last administered on 01/23/19at 05:59; Start 01/20/19 at 14:00; Stop 01/23/19 at 09:05; Status DC Levofloxacin/ Dextrose 100 ml @ 100 mls/hr Q24H IV Last administered on 01/20/19at 20:49; Start 01/20/19 at 21:00; Stop 01/22/19 at 14:31; Status DC Budesonide (Pulmicort) 0.5 mg RTBID NEB Last administered on 01/25/19 20:00; Start 01/20/19 at 20:00 Albuterol Sulfate (Ventolin Neb Soln) 2.5 mg Q4HRS W/A PRN INH SHORTNESS OF BREATH Last administered on 01/25/19 20:00; Start 01/20/19 at 16:30 Alprazolam (Xanax) 1 mg BID PO Last administered on 01/25/19at 20:53; Start 01/20/19 at 21:00 Furosemide (Lasix) 20 mg DAILY PO Last administered on 01/25/19 08:51; Start 01/21/19 at 09:00 Metformin HCl (Glucophage) 500 mg BIDWMEALS PO Last administered on 01/25/19 17:29; Start 01/22/19 at 08:00 Montelukast Sodium (Singulair) 10 mg DAILY PO Last administered on 01/25/19at 08:49; Start 01/21/19 at 09:00 Oxycodone/ Acetaminophen (Percocet 5/325) 1 tab Q4HRS PRN PO BREAKTHRU PAIN; Start 01/20/19 at 16:30 Phenytoin Sodium (Dilantin) 100 mg DAILY PO Last administered on 01/25/19at 08:50; Start 01/21/19 at 09:00 Non-Formulary Medication (Fluticasone/ Salmeterol (Advair 500-50 Diskus)) 1 each BID INH ; Start 01/20/19 at 21:00; Status UNV Cetirizine HCl (ZyrTEC) 10 mg DAILY PO Last administered on 01/25/19 08:49; Start 01/21/19 at 09:00 Pantoprazole Sodium (Protonix) 40 mg DAILYAC PO Last administered on 01/25/19at 08:50; Start 01/21/19 at 07:30 Oxycodone HCl (OxyCONTIN) 80 mg Q12HR PO Last administered on 01/25/19at 20:54; Start 01/20/19 at 21:00 Non-Formulary Medication (Pantoprazole Sodium (Protonix)) 40 mg DAILY PO ; Start 01/21/19 at 09:00; Status UNV Sodium Chloride (Normal Saline Flush) 3 ml QSHIFT PRN IV AFTER MEDS AND BLOOD DRAWS; Start 01/20/19 at 16:45 Ondansetron HCl (Zofran) 4 mg PRN Q4HRS PRN IV NAUSEA/VOMITING Last adm inistered on 01/24/19at 18:22; Start 01/20/19 at 16:45 Acetaminophen (Tylenol) 650 mg PRN Q4HRS PRN PO TEMP OVER 100.4F OR MILD PAIN; Start 01/20/19 at 16:45 Al Hydroxide/Mg Hydroxide (Mylanta Plus Xs) 30 ml PRN DAILY PRN PO HEARTBURN / GAS; Start 01/20/19 at 16:45 Clonidine HCl (Catapres) 0.1 mg PRN Q6HRS PRN PO SBP>160 OR DBP>90; Start 01/20/19 at 16:45 Docusate Sodium (Colace) 100 mg PRN BID PRN PO CONSTIPATION; Start 01/20/19 at 16:45 Guaifenesin (Robitussin) 200 mg PRN Q4HRS PRN PO COUGH Last administered on 01/21/19at 13:54; Start 01/20/19 at 16:45; Stop 01/23/19 at 12:18; Status DC Lorazepam (Ativan) 0.5 mg PRN Q4HRS PRN PO ANXIETY / AGITATION; Start 01/20/19 at 16:45 Enoxaparin Sodium (Lovenox 40mg Syringe) 40 mg DAILY SQ Last administered on 01/25/19at 09:05; Start 01/21/19 at 09:00 Lactobacillus Rhamnosus (Culturelle) 1 cap BID PO Last administered on 01/10 20:53; Start 01/21/19 at 21:00 Levofloxacin (Levaquin) 500 mg DAILY06 PO Last administered on 01/26/19at 06:35; Start 01/21/19 at 23:00 Furosemide (Lasix) 40 mg 1X ONCE IVP Last administered on 01/22/19 14:47; Start 01/22/19 at 12:30; Stop 01/22/19 at 12:31; Status DC Methylprednisolone Sodium Succinate (SOLU-Medrol 40MG VIAL) 40 mg Q12HR IV Last administered on 01/24/19 08:28; Start 01/23/19 at 21:00; Stop 01/24/19 at 09:26; Status DC Guaifenesin (MUCINEX ER with DM) 2 tab BID PO Last administered on 01/25/19at 20:52; Start 01/23/19 at 12:00 Insulin Human Lispro (HumaLOG) 0-5 UNITS TIDWMEALS SQ Last administered on 01/24/19at 17:50; Start 01/24/19 at 08:00 Dextrose (Dextrose 50%-Water Syringe) 12.5 gm PRN Q15MIN PRN IV SEE COMMENTS; Start 01/24/19 at 06:45 Dextrose (Iv Dextrose 5%) 250 ml PRN Q15MIN PRN IV SEE COMMENTS; Start 01/24/19 at 06:45 Prednisone (Prednisone) 40 mg DAILY PO Last administered on 01/25/19at 08:51; Start 01/25/19 at 09:00 Levetiracetam (Keppra) 1,000 mg 1X ONCE PO Last administered on 01/24/19at 20:45; Start 01/24/19 at 21:00; Stop 01/24/19 at 21:01; Status DC Levetiracetam (Keppra) 500 mg BID PO Last administered on 01/25/19at 20:52; Start 01/25/19 at 09:00 Active Scripts Active Reported Metformin Hcl 500 Mg Tablet 500 Mg PO BIDWMEALS Azithromycin Tablet (Azithromycin) 250 Mg Tablet 250 Mg PO PT STATED THAT SHE HAS BEEN TAKING ABX FOR THREE DAYS, UNABLE TO STATE HOW MANY TIME PER DAY OR WHY SHE IS TAKING IT Dilantin (Phenytoin Sodium Extended) 100 Mg Capsule 1 Cap PO DAILY Combivent Respimat Inhal (Ipratropium/Albuterol Sulfate) 4 Gm Aer.w.adap 4 Gm INH Advair 500-50 Diskus (Fluticasone/Salmeterol) 1 Each Disk.w.dev 1 Each INH BID Proair Hfa (Albuterol Sulfate) 8.5 Gm Hfa.aer.ad 8.5 Gm INH PRN Protonix (Pantoprazole Sodium) 20 Mg Tablet.dr 40 Mg PO DAILY Oxycontin (Oxycodone HCl) 80 Mg Tab.er.12h 80 Mg PO BID Loratadine 10 Mg Tablet 10 Mg PO DAILY Oxycodone-Acetaminophen 5-325 (Oxycodone Hcl/Acetaminophen) 1 Each Tablet 1 Tab PO Q4HRS PRN Alprazolam 1 Mg Tablet 1 Mg PO BID Furosemide 20 Mg Tablet 20 Mg PO DAILY Montelukast Sodium Tablet (Montelukast Sodium) 10 Mg Tablet 10 Mg PO DAILY Omeprazole 40 Mg Capsule.dr 40 Mg PO DAILY Vitals/I & O Vital Sign - Last 24 Hours 01/25/19 01/25/19 01/25/19 01/25/19 11:48 11:59 12:55 14:41 Temp 98.5 98.1 98.5 98.1 Pulse 95 83 Resp 20 19 20 B/P (MAP) 98/62 (74) 152/82 (105) Pulse Ox 94 95 95 96 O2 Delivery Nasal Cannula Nasal Cannula Nasal Cannula Nasal Cannula O2 Flow Rate 3.0 2.0 2.0 3.0 01/25/19 01/25/19 01/25/19 01/25/19 19:15 20:00 20:01 20:54 Temp 97.4 97.4 Pulse 120 Resp 18 B/P (MAP) 108/58 (75) Pulse Ox 90 92 O2 Delivery Nasal Cannula Nasal Cannula Nasal Cannula Nasal Cannula O2 Flow Rate 3.0 2.0 2.0 2.0 01/25/19 01/26/19 01/26/19 01/26/19 23:18 00:54 03:19 07:57 Temp 98.2 97.7 98.6 98.2 97.7 98.6 Pulse 96 79 86 Resp 18 20 20 B/P (MAP) 119/79 (92) 123/77 (92) 147/84 (105) Pulse Ox 94 92 93 O2 Delivery Nasal Cannula Nasal Cannula Room Air Room Air O2 Flow Rate 3.0 Intake and Output 01/25/19 01/25/19 01/26/19 15:00 23:00 07:00 Intake Total 480 ml 390 ml 240 ml Balance 480 ml 390 ml 240 ml BERRY JOSE MD Jan 26, 2019 09:36
[2019-01-26] MEDS: MONTELUKAST SODIUM 10 MG TABLET. PO SCH (09:48)
[2019-01-26] MEDS: PANTOPRAZOLE 40 MG TABLET.DR. PO SCH (09:48)
[2019-01-26] MEDS: metFORMIN 500 MG TABLET PO SCH (09:48)
[2019-01-26] MEDS: LACTOBACILLUS RHAMNOSUS GG 1 CAPSULE. PO SCH (09:48)
[2019-01-26] MEDS: FUROSEMIDE 20 MG TABLET PO SCH (09:49)
[2019-01-26] MEDS: ENOXAPARIN 40 MG/0.4 ML SYRINGE. SQ SCH (09:49)
[2019-01-26] MEDS: levETIRAcetam 500 MG TABLET PO SCH (09:50)
[2019-01-26] MEDS: ALPRAZolam 1 MG TABLET PO SCH (09:50)
[2019-01-26] MEDS: PHENYTOIN SODIUM EXTENDED 100 MG CAPSULE PO SCH (09:50)
[2019-01-26] MEDS: CETIRIZINE HCL 10 MG TABLET. PO SCH (09:50)
[2019-01-26] MEDS: predniSONE 20 MG TABLET PO SCH (09:51)
[2019-01-26] MEDS: oxyCODONE ER 40 MG TAB.ER.12H PO SCH (10:17)
[2019-01-26 11:37] VITALS: BP 123/81
[2019-01-26] MEDS: ALBUTEROL SULFATE 2.5 MG/3 ML NEBU. INH PRN (11:53)
--- NOTE | 2019-01-26 12:03 | PDOC3 ---
Discharge Summary Date of Admission: Jan 20, 2019 Date of Discharge: Jan 26, 2019 Follow-Up: 1-2 days Admitting Diagnosis comment: DISCHARGE DX Assessment/Plan IMPRESSION: 1. Acute on chronic hypoxic respiratory failure secondary to acute exacerbation WITH RESP FAILURE, EXAC of chronic obstructive pulmonary disease and likely viral basal pneumonia. 2. No acute pulmonary embolism is identified.ON CTA 3. At the right more so than left lung bases, mostly linear opacities are identified that are suggestive of atelectasis but could potentially represent an infectious process in the appropriate clinic setting. 4. few millimetric pulmonary nodules are noted. These do not meet size criteria for dedicated follow-up however given the appearance of the lungs and presumed risk factors for lung malignancy, optional CT follow-up in 12 months could be considered. 5. MORBID OBESITY 6. Moderate pulmonary HTN 7. RIGHT SHOULDER PAIN ON X-RAY There is no evidence for acute fracture or dislocation. AC joint is congruent. Humeral head is not high riding. 8. ATYPICAL CHEST PAIN 9. Doppler and Color Flow revealed mild to moderate tricuspid regurgitation. Doppler and Color Flow revealed moderate pulmonary hypertension. 01/22 more soa, tachy PLAN ADMIT EMPERIC IV ANTIBIOTICS PULM CONSULT PO STEROID TAPER DVT PROPHYLAXIS PAIN CONTROL cxr REVIEWED echo cardiology consult D/C 01/26 29 MIN PT EXAM, CHART REVIEW D/C PLANNING , > 50% OF TIME SPENT WITH EXAM, CHART REVIEW, PT CARE COORDINATION Vitals Vitals Vital Signs Date Time Temp Pulse Resp B/P (MAP) Pulse Ox O2 Delivery O2 Flow Rate FiO2 01/26/19 07:57 98.6 86 20 147/84 (105) 93 Room Air 98.6 01/25/19 23:18 3.0 Physical Exam Physical Exam Neck: Normal range of motion, no tenderness, supple, no stridor. [] Cardiovascular:Heart rate regular rhythm, no murmur [] Lungs & Thorax: Bilateral crackles [] Abdomen: Bowel sounds normal, soft, no tenderness, no masses, no pulsatile masses. [] Skin: Warm, dry, no erythema, no rash. [] Back: No tenderness, no CVA tenderness. [] Extremities: No tenderness, no cyanosis, no clubbing, ROM intact, no edema. [] Neurologic: Alert and oriented X 3, normal motor function, normal sensory function, no focal deficits noted. [] Psychologic: Affect normal, judgment normal, mood normal. [] General: Alert, Oriented X3, Cooperative HEENT: Atraumatic Breasts: Not examined Abdomen: Soft Rectal Exam: not examined Extremities: No cyanosis Neuro: Normal speech, Strength at 5/5 X4 ext, Cranial nerves 3-12 NL Psych/Mental Status: Mental status NL, Mood NL General: Alert, Oriented X3, Cooperative, No acute distress, mild distress Heart: Regular rate (SR no ectopies), Normal S1, Normal S2, Other (3/6 systolic murmur to LLS border) Lungs: CTA Abdomen: Normal bowel sounds, Soft, No tenderness Extremities: No cyanosis Skin: No breakdown FINAL DIAGNOSIS Problems Medical Problems: (1) Hypoxia Status: Acute (2) Insufficiency, respiratory, acute Status: Acute (3) PNA (pneumonia) Status: Acute Brief Hospital Course Ms. Wolfe is a 63 old [sex] who presented with [ COPD EXAC, ACUTE] CONDITION AT DISCHARGE: Improved Discharge Medications Current Medications Albuterol/ Ipratropium (Duoneb) 3 ml 1X ONCE NEB Last administered on 01/19/19at 19:30; Start 01/19/19 at 19:30; Stop 01/19/19 at 19:31; Status DC Iohexol (Omnipaque 350 Mg/ml) 100 ml 1X ONCE IV Last administered on 01/19/19at 21:30; Start 01/19/19 at 21:30; Stop 01/19/19 at 21:31; Status DC Info (CONTRAST GIVEN -- Rx MONITORING) 1 each PRN DAILY PRN MC SEE COMMENTS; Start 01/19/19 at 21:00; Stop 01/21/19 at 20:59; Status DC Ondansetron HCl (Zofran) 4 mg PRN Q8HRS PRN IV NAUSEA/VOMITING 1ST CHOICE; Start 01/20/19 at 00:45; Stop 01/21/19 at 00:44; Status DC Albuterol/ Ipratropium (Duoneb) 3 ml RTQID NEB Last administered on 01/20/19at 20:23; Start 01/20/19 at 08:00; Stop 01/21/19 at 07:59; Status DC Levofloxacin/ Dextrose 150 ml @ 100 mls/hr 1X ONCE IV Last administered on 01/20/19at 01:05; Start 01/20/19 at 01:00; Stop 01/20/19 at 02:29; Status DC Methylprednisolone Sodium Succinate (SOLU-Medrol 40MG VIAL) 40 mg Q8HRS IV Last administered on 01/23/19at 05:59; Start 01/20/19 at 14:00; Stop 01/23/19 at 09:05; Status DC Levofloxacin/ Dextrose 100 ml @ 100 mls/hr Q24H IV Last administered on 01/20/19at 20:49; Start 01/20/19 at 21:00; Stop 01/22/19 at 14:31; Status DC Budesonide (Pulmicort) 0.5 mg RTBID NEB Last administered on 01/26/19at 11:53; Start 01/20/19 at 20:00 Albuterol Sulfate (Ventolin Neb Soln) 2.5 mg Q4HRS W/A PRN INH SHORTNESS OF BREATH Last administered on 01/26/19at 11:53; Start 01/20/19 at 16:30 Alprazolam (Xanax) 1 mg BID PO Last administered on 01/26/19 09:50; Start 01/20/19 at 21:00 Furosemide (Lasix) 20 mg DAILY PO Last administered on 01/26/19at 09:49; Start 01/21/19 at 09:00 Metformin HCl (Glucophage) 500 mg BIDWMEALS PO Last administered on 01/26/19at 09:48; Start 01/22/19 at 08:00 Montelukast Sodium (Singulair) 10 mg DAILY PO Last administered on 01/26/19at 09:48; Start 01/21/19 at 09:00 Oxycodone/ Acetaminophen (Percocet 5/325) 1 tab Q4HRS PRN PO BREAKTHRU PAIN; Start 01/20/19 at 16:30 Phenytoin Sodium (Dilantin) 100 mg DAILY PO Last administered on 01/26/19at 09:50; Start 01/21/19 at 09:00 Non-Formulary Medication (Fluticasone/ Salmeterol (Advair 500-50 Diskus)) 1 each BID INH ; Start 01/20/19 at 21:00; Status UNV Cetirizine HCl (ZyrTEC) 10 mg DAILY PO Last administered on 01/26/19at 09:50; Start 01/21/19 at 09:00 Pantoprazole Sodium (Protonix) 40 mg DAILYAC PO Last administered on 01/26/19at 09:48; Start 01/21/19 at 07:30 Oxycodone HCl (OxyCONTIN) 80 mg Q12HR PO Last administered on 01/26/19at 10:17; Start 01/20/19 at 21:00 Non-Formulary Medication (Pantoprazole Sodium (Protonix)) 40 mg DAILY PO ; Start 01/21/19 at 09:00; Status UNV Sodium Chloride (Normal Saline Flush) 3 ml QSHIFT PRN IV AFTER MEDS AND BLOOD DRAWS; Start 01/20/19 at 16:45 Ondansetron HCl (Zofran) 4 mg PRN Q4HRS PRN IV NAUSEA/VOMITING Last a dministered on 01/24/19at 18:22; Start 01/20/19 at 16:45 Acetaminophen (Tylenol) 650 mg PRN Q4HRS PRN PO TEMP OVER 100.4F OR MILD PAIN; Start 01/20/19 at 16:45 Al Hydroxide/Mg Hydroxide (Mylanta Plus Xs) 30 ml PRN DAILY PRN PO HEARTBURN / GAS; Start 01/20/19 at 16:45 Clonidine HCl (Catapres) 0.1 mg PRN Q6HRS PRN PO SBP>160 OR DBP>90; Start 01/20/19 at 16:45 Docusate Sodium (Colace) 100 mg PRN BID PRN PO CONSTIPATION; Start 01/20/19 at 16:45 Guaifenesin (Robitussin) 200 mg PRN Q4HRS PRN PO COUGH Last administered on 01/21/19at 13:54; Start 01/20/19 at 16:45; Stop 01/23/19 at 12:18; Status DC Lorazepam (Ativan) 0.5 mg PRN Q4HRS PRN PO ANXIETY / AGITATION; Start 01/20/19 at 16:45 Enoxaparin Sodium (Lovenox 40mg Syringe) 40 mg DAILY SQ Last administered on 01/26/19at 09:49; Start 01/21/19 at 09:00 Lactobacillus Rhamnosus (Culturelle) 1 cap BID PO Last administered on at 09:48; Start 01/21/19 at 21:00 Levofloxacin (Levaquin) 500 mg DAILY06 PO Last administered on 01/26/19at 06:35; Start 01/21/19 at 23:00 Furosemide (Lasix) 40 mg 1X ONCE IVP Last administered on 01/22/19at 14:47; Start 01/22/19 at 12:30; Stop 01/22/19 at 12:31; Status DC Methylprednisolone Sodium Succinate (SOLU-Medrol 40MG VIAL) 40 mg Q12HR IV Last administered on 01/24/19at 08:28; Start 01/23/19 at 21:00; Stop 01/24/19 at 09:26; Status DC Guaifenesin (MUCINEX ER with DM) 2 tab BID PO Last administered on 01/25/19at 20:52; Start 01/23/19 at 12:00 Insulin Human Lispro (HumaLOG) 0-5 UNITS TIDWMEALS SQ Last administered on 01/24/19at 17:50; Start 01/24/19 at 08:00 Dextrose (Dextrose 50%-Water Syringe) 12.5 gm PRN Q15MIN PRN IV SEE COMMENTS; Start 01/24/19 at 06:45 Dextrose (Iv Dextrose 5%) 250 ml PRN Q15MIN PRN IV SEE COMMENTS; Start 01/24/19 at 06:45 Prednisone (Prednisone) 40 mg DAILY PO Last administered on 01/26/19at 09:51; Start 01/25/19 at 09:00 Levetiracetam (Keppra) 1,000 mg 1X ONCE PO Last administered on 01/24/19at 20:45; Start 01/24/19 at 21:00; Stop 01/24/19 at 21:01; Status DC Levetiracetam (Keppra) 500 mg BID PO Last administered on 01/26/19at 09:50; Start 01/25/19 at 09:00 Active Scripts Active Reported Metformin Hcl 500 Mg Tablet 500 Mg PO BIDWMEALS Azithromycin Tablet (Azithromycin) 250 Mg Tablet 250 Mg PO PT STATED THAT SHE HAS BEEN TAKING ABX FOR THREE DAYS, UNABLE TO STATE HOW MANY TIME PER DAY OR WHY SHE IS TAKING IT Dilantin (Phenytoin Sodium Extended) 100 Mg Capsule 1 Cap PO DAILY Combivent Respimat Inhal (Ipratropium/Albuterol Sulfate) 4 Gm Aer.w.adap 4 Gm INH Advair 500-50 Diskus (Fluticasone/Salmeterol) 1 Each Disk.w.dev 1 Each INH BID Proair Hfa (Albuterol Sulfate) 8.5 Gm Hfa.aer.ad 8.5 Gm INH PRN Protonix (Pantoprazole Sodium) 20 Mg Tablet.dr 40 Mg PO DAILY Oxycontin (Oxycodone HCl) 80 Mg Tab.er.12h 80 Mg PO BID Loratadine 10 Mg Tablet 10 Mg PO DAILY Oxycodone-Acetaminophen 5-325 (Oxycodone Hcl/Acetaminophen) 1 Each Tablet 1 Tab PO Q4HRS PRN Alprazolam 1 Mg Tablet 1 Mg PO BID Furosemide 20 Mg Tablet 20 Mg PO DAILY Montelukast Sodium Tablet (Montelukast Sodium) 10 Mg Tablet 10 Mg PO DAILY Omeprazole 40 Mg Capsule.dr 40 Mg PO DAILY Vital Signs Vital Signs Date Time Temp Pulse Resp B/P (MAP) Pulse Ox O2 Delivery O2 Flow Rate FiO2 01/26/19 11:58 94 Room Air 01/26/19 11:37 98.4 102 18 123/81 (95) 98.4 01/26/19 10:17 3.0 Labs Laboratory Tests Test 01/24/19 14:58 01/24/19 17:05 01/24/19 19:45 01/24/19 20:31 Glucose (Fingerstick) 165 mg/dL (70-99) 242 mg/dL (70-99) 173 mg/dL (70-99) Lactic Acid Level 2.8 mmol/L (0.4-2.0) Phenytoin (Dilantin) Level 1.7 mcg/mL (10.0-20.0) Phenytoin Last Dose Date Unk Phenytoin Last Dose Time Unk Test 01/24/19 22:45 01/25/19 07:55 01/25/19 11:22 01/25/19 14:08 Lactic Acid Level 2.3 mmol/L (0.4-2.0) Glucose (Fingerstick) 98 mg/dL (70-99) 106 mg/dL (70-99) 163 mg/dL (70-99) Test 01/25/19 16:44 01/25/19 21:16 01/26/19 07:41 01/26/19 11:27 Glucose (Fingerstick) 149 mg/dL (70-99) 186 mg/dL (70-99) 93 mg/dL (70-99) 129 mg/dL (70-99) Laboratory Tests Test 01/25/19 14:08 01/25/19 16:44 01/25/19 21:16 01/26/19 07:41 Glucose (Fingerstick) 163 mg/dL (70-99) 149 mg/dL (70-99) 186 mg/dL (70-99) 93 mg/dL (70-99) Test 01/26/19 11:27 Glucose (Fingerstick) 129 mg/dL (70-99) Allergies Allergies Coded Allergies Type Severity Reaction Last Updated Verified No Known Drug Allergies 09/27/14 No Disposition/Orders: D/C to Home w/ HH BERRY JOSE MD Jan 26, 2019 12:03
[2019-01-26] MEDS ORDERED: LEVE500T56 PO (12:07)
[2019-01-26] MEDS ORDERED: LEVO500T59 PO (12:07)
[2019-01-26] MEDS ORDERED: GUAI-108 PO (12:07)
[2019-01-26] MEDS ORDERED: ACET325T9 PO (12:07)
[2019-01-26] MEDS ORDERED: DOCU-153 PO (12:07)
[2019-01-26] MEDS ORDERED: MAG30ORA2 PO (12:07)
[2019-01-26] MEDS ORDERED: LACT1CAP19 PO (12:07)
[2019-01-26] MEDS ORDERED: PRED20TA PO (12:07)
--- NOTE | 2019-01-26 12:09 | SNU/HH DC ---
DISCHARGE WITH HOME HEALTH DISCHARGE INFORMATION: Final Diagnosis: Problems Medical Problems: (1) Hypoxia Status: Acute (2) Insufficiency, respiratory, acute Status: Acute (3) PNA (pneumonia) Status: Acute Condition on Discharge: Stable CODE STATUS: Code Status: Full HOME HEALTH: Face to Face: I certify this patient is under my care and that I, or a nurse practitioner or physician's radiology assistant working with me, had a face to face encounter that meets the physician face to face encounter requirements with this patient on []. 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 POST DISCHARGE ORDERS: Activity Instructions for Disc: Resume previous activity, Activity as tolerated Weight Bearing Status after Di: As tolerated DIET AFTER DISCHARGE: ADA CHECKS AFTER DISCHARGE: Checks after discharge: Check blood press - daily TREATMENT/EQUIPMENT ORDERS: Adaptive Equipment Issued: None Discharge Respiratory Equipmen: Oxygen, Nebulizer CERTIFICATION STATEMENT: Certification Statement: Certification Statement: Based on the above finding, I certify that this patient is confined to the home and needs intermittent long term care, physical therapy and/or speech therapy, or continues to need occupational therapy.~ This patient is under my care, and I have initiated the establishment of the plan of care.~ This patient will be followed by myself or a community physician who will periodically review the plan of care. Home Meds Active Scripts Prednisone (PREDNISONE) 20 Mg Tablet, 40 MG PO DAILY for COPD for 10 Days, #20 TAB Prov:BERRY JOSE MD 01/26/19 Lactobacillus Rhamnosus Gg (CULTURELLE) 1 Each Cap.sprink, 1 CAP PO BID for SUPPLEMENT for 30 Days, #60 CAP Prov:BERRY JOSE MD 01/26/19 Docusate Sodium (DOK) 100 Mg Capsule, 100 MG PO PRN BID PRN for CONSTIPATION for 10 Days, #20 CAP Prov:BERRY JOSE MD 01/26/19 Mag Hydrox/Al Hydrox/Simeth (MAG-AL PLUS XS SUSPENSION) 30 Ml Oral.susp, 30 ML PO PRN DAILY PRN for HEARTBURN / GAS for 10 Days, #120 MISC Prov:BERRY JOSE MD 01/26/19 Guaifenesin/Dextromethorphan (MUCINEX DM ER 600-30 MG TABLET) 1 Each Tab.er.12h, 2 TAB PO BID for COUGH for 10 Days, #40 TAB.SR Prov:BERRY JOSE MD 01/26/19 Levetiracetam (KEPPRA) 500 Mg Tablet, 500 MG PO BID for SEIZURE for 30 Days, #60 TAB Prov:BERRY JOSE MD 01/26/19 Acetaminophen (TYLENOL) 325 Mg Tablet, 650 MG PO PRN Q4HRS PRN for TEMP OVER 100.4F OR MILD PAIN for 10 Days, #60 TAB Prov:BERRY JOSE MD 01/26/19 Levofloxacin (LEVAQUIN) 500 Mg Tablet, 500 MG PO DAILY06 for PNEUMONIA for 10 Days, #10 TAB Prov:BERRY JOSE MD 01/26/19 Reported Medications Metformin Hcl (METFORMIN HCL) 500 Mg Tablet, 500 MG PO BIDWMEALS for ANTI-DIABET IC, TAB 0 Refills 01/20/19 Phenytoin Sodium Extended (DILANTIN) 100 Mg Capsule, 1 CAP PO DAILY, #90 CAP 3 Refills 06/14/17 Ipratropium/Albuterol Sulfate (COMBIVENT RESPIMAT INHAL) 4 Gm Aer.w.adap, 4 GM INH 06/14/17 Fluticasone/Salmeterol (ADVAIR 500-50 DISKUS) 1 Each Disk.w.dev, 1 EACH INH BID 06/14/17 Albuterol Sulfate (Proair Hfa) 8.5 Gm Hfa.aer.ad, 8.5 GM INH PRN for SHORTNESS OF BREATH 06/14/17 Pantoprazole Sodium (PROTONIX) 20 Mg Tablet.dr, 40 MG PO DAILY 06/14/17 Oxycodone Hcl (OXYCONTIN) 80 Mg Tab.er.12h, 80 MG PO BID 06/14/17 Loratadine (LORATADINE) 10 Mg Tablet, 10 MG PO DAILY 06/14/17 Oxycodone Hcl/Acetaminophen (OXYCODONE-ACETAMINOPHEN 5-325) 1 Each Tablet, 1 TAB PO Q4HRS PRN for PAIN 06/14/17 Alprazolam (ALPRAZOLAM) 1 Mg Tablet, 1 MG PO BID 06/14/17 Furosemide (FUROSEMIDE) 20 Mg Tablet, 20 MG PO DAILY 06/14/17 Montelukast Sodium (MONTELUKAST SODIUM TABLET ) 10 Mg Tablet, 10 MG PO DAILY 06/14/17 Omeprazole (OMEPRAZOLE) 40 Mg Capsule.dr, 40 MG PO DAILY 06/14/17 Discontinued Reported Medications Azithromycin (AZITHROMYCIN TABLET) 250 Mg Tablet, 250 MG PO PT STATED THAT SHE HAS BEEN TAKING ABX FOR THREE DAYS, UNABLE TO STATE HOW MANY TIME PER DAY OR WHY SHE IS TAKING IT 06/14/17 BERRY JOSE MD Jan 26, 2019 12:09
--- NOTE | 2019-01-26 14:19 | NUR ---
Pt discharged to home. Discharge teaching done and prescriptions given to PT. IV removed and dressing applied. Pt taken out by wheelchair with transportation provided by family. Pt educated on the importance of wearing O2 at home
== END 2019-01-26 17:11 | disposition home health service (06) | DRG 193 ==
LOC: ER 18:58 → 6 SOUTH 01-20 00:37
PROVIDERS: ADMIT Internal Medicine; ATTEND Internal Medicine
DX: J12.9 Viral pneumonia, unspecified (principal); J96.21 Acute and chronic respiratory failure with hypoxia; J44.0 Chronic obstructive pulmonary disease with (acute) lower respiratory infection; J98.11 Atelectasis; J44.1 Chronic obstructive pulmonary disease with (acute) exacerbation; E66.01 Morbid (severe) obesity due to excess calories; G40.909 Epilepsy, unspecified, not intractable, without status epilepticus; G89.29 Other chronic pain; I07.1 Rheumatic tricuspid insufficiency; I27.20 Pulmonary hypertension, unspecified; K21.9 Gastro-esophageal reflux disease without esophagitis; Z82.49 Family history of ischemic heart disease and other diseases of the circulatory system; Z87.891 Personal history of nicotine dependence; Z99.81 Dependence on supplemental oxygen; Z87.01 Personal history of pneumonia (recurrent); Z68.37 Body mass index [BMI] 37.0-37.9, adult; F32.9 Major depressive disorder, single episode, unspecified; F41.9 Anxiety disorder, unspecified; M19.90 Unspecified osteoarthritis, unspecified site; R07.89 Other chest pain
CPT/HCPCS: 36415; 36600; 71045; 71275; 73030; 73560; 80048; 80053; 80185; 82805; 82962; 83605; 83880; 84484; 85025; 85379; 87040; 87804; 93005; 93306; 94618; 94640; 94760; 96365; J1650; J1815; J1940; J1956; J2405; J2920; J7512; J7613; J7620; J7626; Q9967; 97110; 99285-25; G0378

== ENCOUNTER 2019-11-29 16:19 | Emergency (ER) | payer MEDICAID ==
[~2019-11-29] VITALS: Ht 177.8 cm; Wt 115.0 kg
[~2019-11-29 16:19] MED LIST changes: +ACET325T9 PO; +BENZ-8 PO; +BENZ1LOZ4 PO; +DOCU-153 PO; +DOXY100T PO; +GUAI-108 PO; +LACT1CAP19 PO; +LEVE500T56 PO; +LEVO500T59 PO; +MAG30ORA2 PO; +METF500T16 PO; +PRED20TA PO
--- NOTE | 2019-11-29 17:59 | PHYS DOC ---
Past Medical History Past Medical History: COPD, Diabetes-Type II, High Cholesterol Additional Past Medical Histor: RA, Past Surgical History: No Surgical History Smoking Status: Former Smoker Alcohol Use: None Drug Use: None General Adult EDM: Chief Complaint: SHORTNESS OF BREATH HPI: HPI: Patient is a 64 year old female with history of COPD, hypertension, diabetes type 2, who presents to the ED today from a doctor's office, patient states she went to be evaluated for what she believes is a COPD exacerbation and was told to come to the emergency room because they believe she has Covid. Patient denies any fever. She states she has had similar episodes multiple times during her COPD exacerbation. Denies any chest pain. Review of Systems: Review of Systems: Constitutional: Denies fever or chills. [] Eyes: Denies change in visual acuity. [] HENT: Denies nasal congestion or sore throat. [] Respiratory: Reports cough and shortness of breath. [] Cardiovascular: Denies chest pain or edema. [] GI: Denies abdominal pain, nausea, vomiting, bloody stools or diarrhea. [] : Denies dysuria. [] Musculoskeletal: Denies back pain or joint pain. [] Integument: Denies rash. [] Neurologic: Denies headache, focal weakness or sensory changes. [] Psychiatric: Denies depression or anxiety. [] Heart Score: Risk Factors: Risk Factors: DM, Current or recent (<one month) smoker, HTN, HLP, family history of CAD, obesity. Risk Scores: Score 0 - 3: 2.5% MACE over next 6 weeks - Discharge Home Score 4 - 6: 20.3% MACE over next 6 weeks - Admit for Clinical Observation Score 7 - 10: 72.7% MACE over next 6 weeks - Early Invasive Strategies Allergies: Allergies: Allergies Coded Allergies Type Severity Reaction Last Updated Verified No Known Drug Allergies 09/27/14 No Physical Exam: PE: Constitutional: Well developed, well nourished, no acute distress, non-toxic appearance. [] HENT: Normocephalic, atraumatic, bilateral external ears normal, oropharynx moist, no oral exudates, nose normal. [] Eyes: PERRLA, EOMI, conjunctiva normal, no discharge. [] Neck: Normal range of motion, no tenderness, supple, no stridor. [] Cardiovascular:Heart rate regular rhythm, no murmur [] Lungs & Thorax: Bilateral breath sounds clear to auscultation [] Abdomen: Bowel sounds normal, soft, no tenderness, no masses, no pulsatile masses. [] Skin: Warm, dry, no erythema, no rash. [] Back: No tenderness, no CVA tenderness. [] Extremities: No tenderness, no cyanosis, no clubbing, ROM intact, no edema. [] Neurologic: Alert and oriented X 3, normal motor function, normal sensory function, no focal deficits noted. [] Psychologic: Affect normal, judgement normal, mood normal. [] Current Patient Data: Vital Signs: Vital Signs Date Time Temp Pulse Resp B/P (MAP) Pulse Ox O2 Delivery O2 Flow Rate FiO2 11/29/19 17:42 97.4 78 18 141/84 (103) 94 Room Air 97.4 EKG: EK interpreted by Dr. Mckeon sinus rhythm HR 82 no STEMI[] Radiology/Procedures: Radiology/Procedures: []PROCEDURE: PORTABLE CHEST 1V INDICATION: Reason: CHRONIC SOA, COUGH. HX OF COPD / Spl. Instructions: / History: COMPARISON: July 13, 2019 FINDINGS: Single view of chest obtained. Cardiac silhouette is similar to prior. Disorganized pulmonary markings bilaterally. Patchy opacity at the left lung base. Degenerative changes the spine. IMPRESSION: * Patchy opacity left lung base which could be from atelectasis or infiltrate. May be a chronic finding since this was also present on prior but would correlate with symptoms. * Disorganized pulmonary markings bilaterally which can be seen with chronic interstitial lung disease. Electronically signed by: Misael Pink MD (11/29/2019 6:28 PM) [id number] DICTATED and SIGNED BY: MISAEL PINK MD DATE: 11/29/19 1828 Course & Med Decision Making: Course & Med Decision Making Pertinent Labs and Imaging studies reviewed. (See chart for details) This is a 64-year-old female patient with history of COPD presenting today complaining of cough and shortness of breath that she believes is from COPD exacerbation though her own PCP sent her to the ED because they were concerned she could have coronavirus. She was tested for COVID-19, results will be called to her. CBC, CMP troponin and EKG with no acute findings, chest x-ray noted for patchy opacity left lung base which could be from atelectasis or infiltrate. May be a chronic finding since this was also present on prior xray. Patient was discharged to home with azithromycin. Encouraged to continue breathing treatments and follow-up with the PCP Ming Disclaimer: Ming Disclaimer: This electronic medical record was generated, in whole or in part, using a voice recognition dictation system. Departure Departure Impression: Primary Impression: COPD exacerbation Disposition: 01 DC HOME SELF CARE/HOMELESS Condition: STABLE Referrals: SALLY MUNOZ MD (PCP) Follow-up in the course of this week Patient Instructions: Chronic Obstructive Pulmonary Disease Exacerbation Additional Instructions: You were evaluated in the emergency room with symptoms consistent of COPD exacerbation. Continue using your breathing treatments at home. Take the prescribed medications as ordered until completed. Follow-up with your doctor in the course of this week. Scripts Albuterol Sulfate (Proair Hfa) 8.5 Gm Hfa.aer.ad 2 PUFF IH PRN Q4-6HRS PRN for wheezing for 21 Days, #1 INHALER 0 Refills Prov: STEVEN NUNEZ APRN 11/29/19 Azithromycin (AZITHROMYCIN TABLET) 250 Mg Tablet 1 PKG PO UD for 5 Days, #6 TAB 0 Refills 2 the first day followed by 1 for days 2-5 Prov: STEVEN NUNEZ APRN 11/29/19 Methylprednisolone (MEDROL) 4 Mg Tab.ds.pk 1 PKG PO UD, #1 PKG Prov: STEVEN NUNEZ APRN 11/29/19 STEVEN NUNEZ APRN Nov 29, 2019 17:59
--- NOTE | 2019-11-29 18:31 | RAD ---
INDICATION: Reason: CHRONIC SOA, COUGH. HX OF COPD / Spl. Instructions: / History: COMPARISON: July 13, 2019 FINDINGS: Single view of chest obtained. Cardiac silhouette is similar to prior. Disorganized pulmonary markings bilaterally. Patchy opacity at the left lung base. Degenerative changes the spine. IMPRESSION: * Patchy opacity left lung base which could be from atelectasis or infiltrate. May be a chronic finding since this was also present on prior but would correlate with symptoms. * Disorganized pulmonary markings bilaterally which can be seen with chronic interstitial lung disease. Electronically signed by: Harmeet Cochran MD (11/29/2019 6:28 PM) [id number]
[2019-11-29 18:54] LABS: BASO % 1 % (0-3); EOS # 0.1 x10^3/uL (0.0-0.7); EOS % 1 % (0-3); HEMATOCRIT 38.9 % (36.0-47.0); HEMOGLOBIN 12.8 g/dL (12.0-15.5); LYMPH # 1.5 x10^3/uL (1.0-4.8); LYMPH % 31 % (24-48); MEAN CORPUSCULAR HEMOGLOBIN 29 pg (25-35); MEAN CORPUSCULAR HGB CONC 33 g/dL (31-37); MEAN CORPUSCULAR VOLUME 88 fL (79-100); MONO # 0.5 x10^3/uL (0.0-1.1); MONO % 10 % (0-9); NEUT # 2.8 x10^3/uL (1.8-7.7); NEUT % 57 % (31-73); PLATELET COUNT 244 x10^3/uL (140-400); RED BLOOD COUNT 4.42 x10^6/uL (3.50-5.40); RED CELL DISTRIBUTION WIDTH 15.5 % (11.5-14.5); WHITE BLOOD COUNT 4.9 x10^3/uL (4.0-11.0)
[2019-11-29 18:56] LABS: CALCIUM 9.1 mg/dL (8.5-10.1); CREATININE 0.9 mg/dL (0.6-1.0); GFR 76.3; POTASSIUM 3.7 mmol/L (3.5-5.1)
[2019-11-29 19:02] LABS: ALBUMIN 3.4 g/dL (3.4-5.0); ALBUMIN/GLOBULIN RATIO 0.8 (1.0-1.7); MAGNESIUM 1.8 mg/dL (1.8-2.4); TOTAL BILIRUBIN 0.4 mg/dL (0.2-1.0); TOTAL PROTEIN 7.7 g/dL (6.4-8.2)
[2019-11-29 19:06] LABS: PROTHROMBIN TIME PATIENT 12.5 SEC (11.7-14.0)
[2019-11-29 19:34] LABS: BILIRUBIN,URINE NEGATIVE (NEG); CLARITY,URINE CLEAR; COLOR,URINE YELLOW; NITRITE,URINE NEGATIVE (NEG); PROTEIN,URINE NEGATIVE (NEG-TRACE)
[2019-11-29 19:40] LABS: BACTERIA,URINE 0 /HPF (0-FEW); BARBITURATES NEG (NEG); BENZODIAZEPINES NEG (NEG); CANNABINOIDS NEG (NEG); COCAINE NEG (NEG); METHADONE NEG (NEG); OPIATES NEG (NEG); PHENCYCLIDINE NEG (NEG); RBC,URINE 0 /HPF (0-2); WBC,URINE RARE /HPF (0-4)
[2019-11-29 19:41] LABS: AMPHETAMINE/METHAMPHETAMINE NEG (NEG)
[2019-11-29] MEDS ORDERED: ALBU2.5V8 IH (20:19)
[2019-11-29] MEDS ORDERED: METH4TAB2 PO (20:19)
[2019-11-29] MEDS ORDERED: AZIT250T6 PO (20:19)
[2019-11-29 23:44] VITALS: BP 134/83
--- NOTE | 2019-11-30 05:22 | EKG ---
[facility] [address] [place] [id number] Test Date: 2019-11-29 Test Time: 17:46:33 Pat Name: JEANNIE TAPIA Department: Room: Gender: F Cage Loader: : 1955 Requested By: STEVEN NUNEZ Order Number: [id number] Reading MD: Measurements Intervals [place] Rate: 77 P: 52 FL: 186 QRS: 34 QRSD: 82 T: 38 QT: 364 QTc: 414 Interpretive Statements SINUS RHYTHM QRS(T) CONTOUR ABNORMALITY CONSIDER ANTEROSEPTAL MYOCARDIAL DAMAGE POSSIBLY ABNORMAL ECG RI6.01 No previous ECG available for comparison
--- NOTE | 2019-11-30 13:28 | NUR ---
IP: Informed pt of negative COVID test. Pt verbalized understanding.
== END 2019-11-29 21:08 | disposition home or self-care (01) ==
LOC: ER 16:19
DX: J44.1 Chronic obstructive pulmonary disease with (acute) exacerbation (principal); Z20.828 Contact with and (suspected) exposure to other viral communicable diseases; R05 Cough; R06.02 Shortness of breath; E11.9 Type 2 diabetes mellitus without complications; E78.00 Pure hypercholesterolemia, unspecified; Z87.891 Personal history of nicotine dependence
CPT/HCPCS: 36415; 71045; 80053; 80307; 81001; 82553; 83605; 83735; 83880; 84145; 84484; 85025; 85610; 85730; 87040; 93005; 99285; C9803; U0003